=== PATIENT | male | born 1980 | race Caucasian/White ===

== ENCOUNTER → 2017-10-20 09:06 | Outpatient (CLI) | payer OTHER, SELFPAY ==
--- NOTE | 2017-10-20 09:14 | RAD_ITS ---
CLINICAL HISTORY: Male, 37 years old. Right shoulder pain. Limited range of motion. PROCEDURE: ARTHROGRAM - RIGHT SHOULDER CONSENT: The procedure as well as the benefits and possible complications including infection and bleeding were explained to the patient. Informed consent was obtained. FLUOROSCOPY TIME (if supplied): (0:48) minutes/seconds Injection Information: 10 cc of dilute Magnevist. Number of images obtained: 4 TECHNIQUE: (All elements of maximal sterile barrier technique followed, including US elements as applicable) The patient was in the supine position. The overlying skin was prepped and draped in the usual sterile fashion. Following local anesthetic application and under direct fluoroscopic guidance, a 22-gauge spinal needle was placed into the shoulder joint. 2 cc of Isovue-300 was injected for confirmation. Following this, 10 cc of dilute Magnevist was injected. The patient tolerated the procedure well. A CT scan will follow. RAD/Arthrogram Shoulder IMPRESSION: Successful right shoulder arthrogram with injection of 10 cc of dilute Magnevist. Electronically Signed: Primo Goff MD at 10:39 EDT Tel [phone], Service support ,
--- NOTE | 2017-10-20 09:15 | CT_ITS ---
STUDY: CT RIGHT SHOULDER REASON FOR EXAM: Male, 37 years old. Right shoulder pain. Decreased range of motion. RADIATION DOSAGE (If Supplied By Facility): CTDIvol = ( 41.06 ) mGy, DLP = ( 874.63 ) mGycm TECHNIQUE: The patient was scanned in a multi detector CT scanner. High resolution transaxial imaging was performed following intra-articular administration of dilute contrast material. Sagittal and coronal images were reconstructed. Individualized dose optimization techniques were used for this CT. COMPARISON: Comparison is made with prior arthrogram done earlier in the day. FINDINGS: Normal glenohumeral articulation. Normal glenoid rim, neck and visualized scapula. Normal humeral head, neck and tuberosities. Normal coracoid process. Normal visualized lateral clavicle. Normal acromioclavicular articulation. There is a Type II morphology (curved), with a neutral orientation. Normal visualized muscles and soft tissue structures. CT/Extremity Upper WITH Contrast IMPRESSION: Normal CT of the shoulder. Electronically Signed: Primo Goff MD at 10:56 EDT Tel [phone], Service support ,
== END ==
LOC: RAD 09:08
PROVIDERS: Visit Provider Specialist
DX: M25.511 Pain in right shoulder (principal)
CPT/HCPCS: 23350; 73040; 73201; A9577; Q9967

== ENCOUNTER 2017-12-01 14:18 | Inpatient (IN) | payer OTHER, SELFPAY ==
[2017-12-01] VITALS (7 sets, daily range): BP systolic 115–132; BP diastolic 63–77; PULSE 78–108; RESP 16–18; TEMP 36.9–37; O2SAT 96–99; BMI 34.2
[2017-12-01 15:03] LABS: Anion Gap 5 (5-15); BUN 14 mg/dL (7-18); BUN/Creat Ratio 12.4 RATIO (10-20); Chloride 109 mmol/L (98-107); Creatinine, Serum 1.13 mg/dL (0.70-1.30); EST Glomerular Filtration Rate 78 mL/min (>60); Est Glom Filt Rate - Afr Amer 94 mL/min (>60); Estimated Creatinine Clearance 98.24 ml/min; Glucose 106 mg/dL (74-106); Magnesium 2.3 mg/dL (1.6-2.6); Phosphorus 1.9 mg/dL (2.5-4.9); Potassium 2.8 mmol/L (3.5-5.1); Sodium Level 143 mmol/L (136-145)
--- NOTE | 2017-12-01 15:05 | PCM.HP.STD ---
Problem List (1) Generalized weakness Status: Acute History of Present Illness Date of Admission: 12/01/17 Chief Complaint: generalised weakness The patient is a 37 year old M with past medical history of hypokalemic periodic paralysis. He was admitted from [facility] on 12/01/2017 with complaint of generalized weakness of one days duration. Patient had right shoulder surgery 1 day ago at [facility] [place]. He was initially told that it was thought it might be a rotator cuff injury but during the surgery was found that it was due to arthritis and bone spurs. He subsequently was discharged the same day and he went home. In the early hours of this morning started feeling very weak. His symptoms resolved but recurred around 7 AM this morning. He went to [facility] where he was found to have potassium of 1.6. Potassium was replaced and a femoral line was put in and patient was transferred to [facility]. Patient complained of severe pain in the right shoulder from surgery and also pain at the site of the femoral line insertion. He denied any fever or chills, any cough or chest pain, any shortness of breath, any abdominal pain, any diarrhea vomiting but still complained of persistent weakness. Review of systems is otherwise negative. EKG done at [facility] showed no acute ST changes. He has been admitted to be managed hypokalemia. [] Past Medical History Allergies hydrocodone [From Vicodin] Allergy (Verified 10/20/17 07:03) Unknown Home Medications: Ambulatory Orders Medication Instructions Recorded Amiloride HCl 10 mg PO DAILY 12/01/17 Linaclotide [Linzess] 290 mcg PO DAILY 12/01/17 Methadone HCl [(None)] 30 mg PO BID 12/01/17 Oxycodone [Oxyir] 1 - 2 tab PO Q6H PRN 12/01/17 Sertraline HCl [Zoloft] 100 mg PO DAILY 12/01/17 Synthroid 25 mcg PO DAILY 12/01/17 Testosterone Cypionate 0.5 ml IM QWEEK 12/01/17 [Depo-Testosterone] Surgical History: - - right shoulder surgery (11/30/17) Psychiatric History: No pertinent psych hx Lives: With Family Smoking Status: Never smoker Alcohol: Occasional Drugs: None - *Family History Paternal History Items: Cancer, - - Multiple sclerosis Maternal History Items: No pertinent history Review of Systems Constitutional: Reports: Malaise, Weakness, Fatigue. Denies: Chills, Fever, Weight Change Eyes: Denies: Blurred vision, Double vision HEENT: Denies: Head Aches, Sinus Congestion, Sinus Drainage Cardiovascular: Denies: Chest Pain, Palpitations Respiratory: Denies: Cough, Shortness of breath at rest, Sputum production Gastrointestinal: Denies: Abdominal Pain, Nausea, Vomiting Genitourinary: Denies: Dysuria Musculoskeletal: Reports: Shoulder Pain - right shoulder pain Neurological: Denies: Numbness, Tingling, Focal weakness Psychiatric: Denies: Anxiety, Depression, Homicidal Ideations, Suicidal Ideations Hematologic/ Lymphatic: Denies: Easy Bruising, Easy Bleeding VTE Information - Inpt Only VTE Present on Admission: No VTE Pharm Prophylaxis ordered?: Yes Patient Problems: Active and Suspected Problems Generalized weakness (Acute) - Physical Exam General: Alert, Oriented x3, Cooperative, - - in moderate distress from pain HEENT: Atraumatic, PERRLA, EOMI, Normocephalic Oral: Dry Mucosa Neck: Supple, No JVD, Negative Carotid Bruits Lungs: Clear to auscultation, Normal air movement, No rhonchi, No wheeze, No rales Cardiovascular: Regular rate, Regular Rhythm, Normal S1, Normal S2, No murmurs Abdomen: Bowel Sounds Present, Soft, Non Tender, Non-Distended, No Hepato-splenomegaly Extremities: No clubbing, No cyanosis, No edema, Capillary Refill Less than 3 Seconds Skin: No rashes, No breakdown Musculoskeletal: - - right shoulder in a sling; Lymphatic: No Cervical, Supraclavicular, or Inguinal Adenopathy Neurological: Neuro grossly intact, - - power 4/5 in all extremities Psych/Mental Status: Normal Affect, Appropriate, Alert and oriented to time, place, person, mood and affect Vital Signs Temp Pulse Resp BP Pulse Ox 98.6 F 99 18 132/76 H 99 12/01/17 14:05 12/01/17 14:05 12/01/17 14:05 12/01/17 14:05 12/01/17 14:05 Oxygen Delivery Method Room Air Weight: 252 lb 1.6 oz Body Mass Index (BMI) 34.2 Laboratory Tests Past 24 Hrs 12/01/17 14:40 Sodium 143 Potassium 2.8 L Chloride 109 H Carbon Dioxide 29.0 Anion Gap 5 BUN 14 Creatinine 1.13 Estim Creat Clear Calc 98.24 Est GFR (MDRD) Af Amer 94 Est GFR (MDRD) Non-Af 78 BUN/Creatinine Ratio 12.4 Glucose 106 Calcium 8.0 L Phosphorus 1.9 L Magnesium 2.3 Assessment/Plan All Active Problems Generalized weakness (Acute) 37-year-old male presenting with a complaint of generalized weakness of one days duration. 1. Hypokalemia in a patient with known hypokalemic periodic paralysis Severe hypokalemia likely induced by stress of surgery as well. Potassium was 1.6 at [facility]. BMP ordered here potassium still pending. will give IV KCl 40meq via femoral line monitor BMP q4hrs until potassium is back to normal limits Mg was 1.9 2. Right shoulder arthritis s/p surgery today is POD 1. complains of severe pain will give IV toradol for pain on methadone for chronic back pain 3. IBS: on linaclotide DVT prophylaxis: lovenox Gi prophylaxis: PPI Code Status: Full code. Patient counseled about different types of CODE STATUS including DNR CC, full code and DNR CCA. Patient elects to be full code. Total [id number]-[id number] time 60 minutes. Code Visit Inpatient E&M: 72394 Init Hosp L3 Procedures: 65103 Advncd Care Plan 30 Min
--- NOTE | 2017-12-01 15:09 | HP.PCM_ITS ---
Problem List (1) Generalized weakness Status: Acute History of Present Illness Date of Admission: 12/01/17 Chief Complaint: generalised weakness The patient is a 37 year old M with past medical history of hypokalemic periodic paralysis. He was admitted from [facility] on 12/01/2017 with complaint of generalized weakness of one days duration. Patient had right shoulder surgery 1 day ago at [facility]. He was i nitially told that it was thought it might be a rotator cuff injury but during the surgery was found that it was due to arthritis and bone spurs. He subsequently was discharged the same day and he went home. In the early hours of this morning started feeling very weak. His symptoms resolved but recurred around 7 AM this morning. He went to [facility] where he was found to have potassium of 1.6. Potassium was replaced and a femoral line was put in and patient was transferred to [facility]. Patient complained of severe pain in the right shoulder from surgery and also pain at the site of the femoral line insertion. He denied any fever or chills, any cough or chest pain, any shortness of breath, any abdominal pain, any diarrhea vomiting but still complained of persistent weakness. Review of systems is otherwise negative. EKG done at [facility] showed no acute ST changes. He has been admitted to be managed hypokalemia. [] Past Medical History Allergies hydrocodone [From Vicodin] Allergy (Verified 10/20/17 07:03) Unknown Home Medications: Ambulatory Orders Medication Instructions Recorded Amiloride HCl 10 mg PO DAILY 12/01/17 Linaclotide [Linzess] 290 mcg PO DAILY 12/01/17 Methadone HCl [(None)] 30 mg PO BID 12/01/17 Oxycodone [Oxyir] 1 - 2 tab PO Q6H PRN 12/01/17 Sertraline HCl [Zoloft] 100 mg PO DAILY 12/01/17 Synthroid 25 mcg PO DAILY 12/01/17 Testosterone Cypionate 0.5 ml IM QWEEK 12/01/17 [Depo-Testosterone] Surgical History: - - right shoulder surgery (11/30/17) Psychiatric History: No pertinent psych hx Lives: With Family Smoking Status: Never smoker Alcohol: Occasional Drugs: None - *Family History Paternal History Items: Cancer, - - Multiple sclerosis Maternal History Items: No pertinent history Review of Systems Constitutional: Reports: Malaise, Weakness, Fatigue. Denies: Chills, Fever, Weight Change Eyes: Denies: Blurred vision, Double vision HEENT: Denies: Head Aches, Sinus Congestion, Sinus Drainage Cardiovascular: Denies: Chest Pain, Palpitations Respiratory: Denies: Cough, Shortness of breath at rest, Sputum production Gastrointestinal: Denies: Abdominal Pain, Nausea, Vomiting Genitourinary: Denies: Dysuria Musculoskeletal: Reports: Shoulder Pain - right shoulder pain Neurological: Denies: Numbness, Tingling, Focal weakness Psychiatric: Denies: Anxiety, Depression, Homicidal Ideations, Suicidal Ideations Hematologic/ Lymphatic: Denies: Easy Bruising, Easy Bleeding VTE Information - Inpt Only VTE Present on Admission: No VTE Pharm Prophylaxis ordered?: Yes Patient Problems: Active and Suspected Problems Generalized weakness (Acute) - Physical Exam General: Alert, Oriented x3, Cooperative, - - in moderate distress from pain HEENT: Atraumatic, PERRLA, EOMI, Normocephalic Oral: Dry Mucosa Neck: Supple, No JVD, Negative Carotid Bruits Lungs: Clear to auscultation, Normal air movement, No rhonchi, No wheeze, No rales Cardiovascular: Regular rate, Regular Rhythm, Normal S1, Normal S2, No murmurs Abdomen: Bowel Sounds Present, Soft, Non Tender, Non-Distended, No Hepato-splenomegaly Extremities: No clubbing, No cyanosis, No edema, Capillary Refill Less than 3 Seconds Skin: No rashes, No breakdown Musculoskeletal: - - right shoulder in a sling; Lymphatic: No Cervical, Supraclavicular, or Inguinal Adenopathy Neurological: Neuro grossly intact, - - power 4/5 in all extremities Psych/Mental Status: Normal Affect, Appropriate, Alert and oriented to time, place, person, mood and affect Vital Signs Temp Pulse Resp BP Pulse Ox 98.6 F 99 18 132/76 H 99 12/01/17 14:05 12/01/17 14:05 12/01/17 14:05 12/01/17 14:05 12/01/17 14:05 Oxygen Delivery Method Room Air Weight: 252 lb 1.6 oz Body Mass Index (BMI) 34.2 Laboratory Tests Past 24 Hrs 12/01/17 14:40 Sodium 143 Potassium 2.8 L Chloride 109 H Carbon Dioxide 29.0 Anion Gap 5 BUN 14 Creatinine 1.13 Estim Creat Clear Calc 98.24 Est GFR (MDRD) Af Amer 94 Est GFR (MDRD) Non-Af 78 BUN/Creatinine Ratio 12.4 Glucose 106 Calcium 8.0 L Phosphorus 1.9 L Magnesium 2.3 Assessment/Plan All Active Problems Generalized weakness (Acute) 37-year-old male presenting with a complaint of generalized weakness of one days duration. 1. Hypokalemia in a patient with known hypokalemic periodic paralysis * Severe hypokalemia likely induced by stress of surgery as well. * Potassium was 1.6 at [facility]. * BMP ordered here potassium still pending. * will give IV KCl 40meq via femoral line * monitor BMP q4hrs until potassium is back to normal limits * Mg was 1.9 * 2. Right shoulder arthritis s/p surgery * today is POD 1. complains of severe pain * will give IV toradol for pain * on methadone for chronic back pain * 3. IBS: on linaclotide DVT prophylaxis: lovenox Gi prophylaxis: PPI Code Status: Full code. * Patient counseled about different types of CODE STATUS including DNR CC, full code and DNR CCA. Patient elects to be full code. Total [id number] time 60 minutes. Code Visit Inpatient E&M: 72728 Init Hosp L3 Procedures: 72601 Advncd Care Plan 30 Min
[2017-12-01] MEDS: Ketorolac 30 MG/ML Syringe IV ×2 (15:33→21:08)
[2017-12-01] MEDS: Methadone 10 MG Tablet 30 MG PO (21:10)
[2017-12-01] MEDS: 0.9% NaCl Peripheral Flush Adult/Peds IV ×2 (21:15→21:17)
[2017-12-01 21:58] LABS: Anion Gap 1 (5-15); BUN 12 mg/dL (7-18); Calcium,Total 7.7 mg/dL (8.5-10.1); Chloride 110 mmol/L (98-107); Creatinine, Serum 1.09 mg/dL (0.70-1.30); EST Glomerular Filtration Rate 81 mL/min (>60); Est Glom Filt Rate - Afr Amer 98 mL/min (>60); Estimated Creatinine Clearance 101.85 ml/min; Glucose 102 mg/dL (74-106); Sodium Level 140 mmol/L (136-145)
[2017-12-02 01:56] LABS: Anion Gap 0 (5-15); BUN 12 mg/dL (7-18); BUN/Creat Ratio 11.2 RATIO (10-20); Calcium,Total 7.9 mg/dL (8.5-10.1); Chloride 108 mmol/L (98-107); Creatinine, Serum 1.07 mg/dL (0.70-1.30); EST Glomerular Filtration Rate 83 mL/min (>60); Est Glom Filt Rate - Afr Amer 100 mL/min (>60); Estimated Creatinine Clearance 103.75 ml/min; Glucose 113 mg/dL (74-106); Sodium Level 138 mmol/L (136-145)
[2017-12-02] MEDS: Sodium Polystyrene Sulfonate 15 GM/60 ML UDC PO (02:49)
[2017-12-02 03:00] VITALS: PULSE 79
[2017-12-02 05:15] VITALS: BP 113/68; PULSE 76; RESP 14; TEMP 36.4; O2SAT 93
[2017-12-02] MEDS: Levothyroxine 25 MCG TABLET PO (05:31)
[2017-12-02] MEDS: Ketorolac 30 MG/ML Syringe IV ×2 (05:31→11:58)
[2017-12-02] MEDS: 0.9% NaCl Peripheral Flush Adult/Peds IV ×2 (05:44→11:58)
[2017-12-02 06:24] LABS: Absolute Lymphocyte Count 2.41 X10^3/ul (0.83-4.51); Absolute Neutrophil Count 5.8 X10^3/uL (2.0-7.7); Basophil# 0.02 X10^3/uL; Basophil% 0.2 % (0-1); Eosinophil# 0.17 X10^3/uL; Eosinophils% 1.8 % (0-5); Hematocrit 43.8 % (40-54); Lymphocyte # 2.41 X10^3/ul (4.0); Lymphocyte % 25.2 % (19-41); Mean Corp Hgb Conc 34.2 g/gl (32-36); Mean Corpuscular Hgb 31.2 pg (27.0-32.0); Mean Corpuscular Volume 91.1 fL (80-94); Mean Platelet Vol. 8.4 fl (6.2-12.0); Monocyte% 11.5 % (0-10); Neutrophil # 5.84 X10^3/uL (2.7-7.7); Neutrophil % 61.1 % (47-70); Platelet Count 210 K/mm3 (150-450); RBC Distribution Width CV 13.7 % (11.6-14.6); Red Blood Count 4.81 M/mm3 (4.6-6.2); White Blood Count 9.6 K/mm3 (4.4-11.0)
[2017-12-02 06:26] LABS: POSITIVE COUNT NO; POSITIVE DIFFERENTIAL NO; POSITIVE MORPHOLOGY NO
[2017-12-02 06:36] LABS: Anion Gap 5 (5-15); BUN 12 mg/dL (7-18); BUN/Creat Ratio 11.5 RATIO (10-20); Calcium,Total 8.1 mg/dL (8.5-10.1); Chloride 107 mmol/L (98-107); Creatinine, Serum 1.04 mg/dL (0.70-1.30); EST Glomerular Filtration Rate 85 mL/min (>60); Est Glom Filt Rate - Afr Amer 103 mL/min (>60); Estimated Creatinine Clearance 106.74 ml/min; Glucose 101 mg/dL (74-106); Potassium 5.4 mmol/L (3.5-5.1); Sodium Level 141 mmol/L (136-145)
[2017-12-02 07:24] VITALS: PULSE 83
[2017-12-02 09:42] VITALS: BP 134/75; PULSE 86; RESP 17; TEMP 36.6; O2SAT 95
[2017-12-02] MEDS: Sertraline 100 MG Tablet PO (09:51)
[2017-12-02] MEDS: Methadone 10 MG Tablet 30 MG PO (09:51)
[2017-12-02] MEDS: LINACLOTIDE 145 MCG CAPSULE 290 MCG PO (09:52)
[2017-12-02] MEDS: Na Biphos/Potassium Phosphate PACKET 1 PACKET PO (09:53)
[2017-12-02] MEDS: Enoxaparin 40 MG/0.4 ML Syringe SC (09:55)
--- NOTE | 2017-12-02 10:17 | CASEMGMT ---
LEOPOLDO NAGEL Assessment: Face to Face with patient for initial transition planning/care coordination assessment. LEOPOLDO NAGEL introduced self and role at [facility], pt voices understanding and consents to assessment at this time. Pt sitting up in bed in no distress at this time. Pt is A/Ox4 at this time and answers all questions appropriately at this time. Pt's is at bedside during assessment. Care providers, pharmacy, and demographics verified/updated at this time. PCP: Ana Patterson Specialists: TOMMY Miles at [facility]; thiago Rubalcava; dimitri Lutz at [facility] Preferred Pharmacy: [facility] Insurance: [employer] Prescription Benefit: [employer] Living Will/HPOA: Pt states does not currently have LW/HPOA and declines info at this time. Pt aware that SW can complete if interested and that he can notify RN if he is interested. LNOK: Ana Bravo, Living Arrangements: Pt lives with family in home and states no concerns at home at this time. Transportation: Pt drives self and states no transportation concerns at this time. DME/HHC: Pt states no current DME and no need for any at this time. Pt states no hx of HHC or SNF. 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 Pt states does not smoke and seldom drinks ETOH. Pt states no concerns with going home at time of discharge. Pt voices no further concerns/needs at this time. Plan: [place] LEOPOLDO NAGEL
[2017-12-02] MEDS: AMILORIDE HCL 5 MG TABLET 10 MG PO (11:01)
[2017-12-02 11:53] VITALS: PULSE 102
--- NOTE | 2017-12-02 13:58 | DCINST_ITS ---
- Discharge Diagnoses Current Active Problems: Current Active and Chronic Problems Generalized weakness (Acute) You will use the following diet at home:: Regular Your food should be the consistency of: Regular Your liquids should be the consistency of: Regular/Thin Discharge Activity: No Restrictions Call your doctor if you observe: Numbness or Tingling, Shortness of breath, Chest pain, Increased palpitations (irregular heartbeat), - - weakness Allergies/Adverse Reactions: Allergies hydrocodone [From Vicodin] Allergy (Verified 10/20/17 07:03) Unknown Medications to take at Discharge Amiloride HCl 10 mg PO DAILY 12/01/17 Linaclotide [Linzess] 290 mcg PO DAILY 12/01/17 Methadone HCl 30 mg PO BID 12/01/17 Oxycodone [Oxyir] 1 - 2 tab PO Q6H PRN 12/01/17 Sertraline HCl [Zoloft] 100 mg PO DAILY 12/01/17 Synthroid 25 mcg PO DAILY 12/01/17 Testosterone Cypionate [Depo-Testosterone] 0.5 ml IM QWEEK 12/01/17 Potassium Chloride [K-Dur] 20 meq PO DAILY #30 tablet 12/02/17 The following prescriptions were given: Potassium Chloride [K-Dur] 20 meq PO DAILY #30 tablet Orders to be completed after discharge: Basic Metabolic Profile (BMP) Time Frame: 3 Days, Location: Laboratory Primary Care Physician: Ana Patterson DO [Primary Care Provider] - Please follow up with your Primary Care Physician in: in 3-5 days Test Results: Test results from this visit will be discussed in further detail at your follow- up appointment, if applicable.
--- NOTE | 2017-12-02 13:59 | PCM.DC.SUM ---
Discharge Date and Diagnosis - Problem List Patient Problems: Active and Suspected Problems Generalized weakness (Acute) Date of Admission: 12/01/17 Date of Discharge: 12/02/17 - Primary Discharge Diagnosis Active and Suspected Problems Generalized weakness (Acute) Hospital Course and Treatment Imaging Results: None Consults: None Operations: None Procedures: None Summary of Care Provided: Per HPI: The patient is a 37 year old M with past medical history of hypokalemic periodic paralysis. He was admitted from [facility] on 12/01/2017 with complaint of generalized weakness of one days duration. Patient had right shoulder surgery 1 day ago at [facility] [place]. He was initially told that it was thought it might be a rotator cuff injury but during the surgery was found that it was due to arthritis and bone spurs. He subsequently was discharged the same day and he went home. In the early hours of this morning started feeling very weak. His symptoms resolved but recurred around 7 AM this morning. He went to [facility] where he was found to have potassium of 1.6. Potassium was replaced and a femoral line was put in and patient was transferred to [facility]. Patient complained of severe pain in the right shoulder from surgery and also pain at the site of the femoral line insertion. He denied any fever or chills, any cough or chest pain, any shortness of breath, any abdominal pain, any diarrhea vomiting but still complained of persistent weakness. Review of systems is otherwise negative. EKG done at [facility] showed no acute ST changes. He has been admitted to be managed hypokalemia. Vital Signs - 24 hr Temp Pulse Resp BP Pulse Ox 12/02/17 09:42 97.8 F 86 17 134/75 H 95 12/02/17 07:24 83 12/02/17 05:15 97.5 F L 76 14 113/68 93 12/02/17 03:00 79 12/01/17 23:15 98.4 F 86 16 115/77 96 12/01/17 23:00 78 12/01/17 19:00 95 12/01/17 17:55 98.4 F 94 16 123/63 H 96 12/01/17 15:02 108 H 12/01/17 14:30 99 12/01/17 14:05 98.6 F 99 18 132/76 H 99 General: Alert, Oriented x3, Cooperative, No apparent distress HEENT: Atraumatic, PERRLA, EOMI, Normocephalic Oral: Moist Mucosa Neck: Supple, No JVD Lungs: Clear to auscultation, Normal air movement, No rhonchi, No wheeze, No rales Cardiovascular: Regular rate, Regular Rhythm, Normal S1, Normal S2, No murmurs Abdomen: Soft, Non Tender, Non-Distended, No Hepato-splenomegaly Extremities: No edema, Capillary Refill Less than 3 Seconds Skin: No rashes, No breakdown Musculoskeletal: No Tenderness to Palpation of Joints or Extremities Neurological: Motor Exam 5/5 strength throughout, Sensory exam intact to light touch and pain Psych/Mental Status: Normal Affect, Appropriate Hospital Course: 1. 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 He had not had a problem since. Then 3 days ago he had surgery and presented to [facility] with sudden onset paralysis. His potassium 1.6 and aggressively replaced. Today his potassium is 5.4 and he is back to baseline. I discussed with him that he will likely need to remain on potassium and he should probably take enough to be in the high range of normal. If he would like to know exactly what the cause then he will need an outpatient neurology/genetic work-up. 2. his other diagnoses were evaluated and his home medications were continued where appropriate Patient Problems: Active and Suspected Problems Generalized weakness (Acute) - Physical Exam Vital Signs Temp Pulse Resp BP Pulse Ox 97.8 F 86 17 134/75 H 95 12/02/17 09:42 12/02/17 09:42 12/02/17 09:42 12/02/17 09:42 12/02/17 09:42 Oxygen Delivery Method Room Air Weight: 252 lb 1.6 oz Body Mass Index (BMI) 34.2 Intake and Output for Last 24 Hours 11/30/17 12/01/17 12/02/17 23:59 23:59 23:59 Intake Total 1194 / 1194 825 / 825 Output Total 2800 / 2800 500 / 500 Balance -1606 / -1606 325 / 325 Laboratory Tests Past 24 Hrs 12/01/17 12/01/17 12/02/17 14:40 21:15 01:15 WBC RBC Hgb Hct MCV MCH MCHC RDW RDW Differential Plt Count MPV Immature Gran % (Auto) Neut % (Auto) Lymph % (Auto) [place] % (Auto) Eos % (Auto) Baso % (Auto) Absolute Neuts (auto) Absolute Lymphs (auto) Total Counted Sodium 143 140 138 Potassium 2.8 L 6.0 H* 6.0 H* Chloride 109 H 110 H 108 H Carbon Dioxide 29.0 29.0 30.0 Anion Gap 5 1 L 0 L BUN 14 12 12 Creatinine 1.13 1.09 1.07 Estim Creat Clear Calc 98.24 101.85 103.75 Est GFR (MDRD) Af Amer 94 98 100 Est GFR (MDRD) Non-Af 78 81 83 BUN/Creatinine Ratio 12.4 11.0 11.2 Glucose 106 102 113 H Calcium 8.0 L 7.7 L 7.9 L Phosphorus 1.9 L Magnesium 2.3 12/02/17 12/02/17 05:45 05:45 WBC 9.6 RBC 4.81 Hgb 15.0 Hct 43.8 MCV 91.1 MCH 31.2 MCHC 34.2 RDW 13.7 RDW Differential 45.0 H Plt Count 210 MPV 8.4 Immature Gran % (Auto) 0.200 Neut % (Auto) 61.1 Lymph % (Auto) 25.2 [place] % (Auto) 11.5 H Eos % (Auto) 1.8 Baso % (Auto) 0.2 Absolute Neuts (auto) 5.8 Absolute Lymphs (auto) 2.41 Total Counted Not Reportable Sodium 141 Potassium 5.4 H Chloride 107 Carbon Dioxide 29.0 Anion Gap 5 BUN 12 Creatinine 1.04 Estim Creat Clear Calc 106.74 Est GFR (MDRD) Af Amer 103 Est GFR (MDRD) Non-Af 85 BUN/Creatinine Ratio 11.5 Glucose 101 Calcium 8.1 L Phosphorus Magnesium Discharge Activity: No Restrictions Call your doctor if you observe: Numbness or Tingling, Shortness of breath, Chest pain, Increased palpitations (irregular heartbeat), - - weakness Home Medications: Medications to take at Discharge Amiloride HCl 10 mg PO DAILY 12/01/17 Linaclotide [Linzess] 290 mcg PO DAILY 12/01/17 Methadone HCl 30 mg PO BID 12/01/17 Oxycodone [Oxyir] 1 - 2 tab PO Q6H PRN 12/01/17 Sertraline HCl [Zoloft] 100 mg PO DAILY 12/01/17 Synthroid 25 mcg PO DAILY 12/01/17 Testosterone Cypionate [Depo-Testosterone] 0.5 ml IM QWEEK 12/01/17 Potassium Chloride [K-Dur] 20 meq PO DAILY #30 tablet 12/02/17 Following Prescrptions Were Given to Patient: Potassium Chloride [K-Dur] 20 meq PO DAILY #30 tablet Other Amb Orders: Basic Metabolic Profile (BMP) Time Frame: 3 Days, Location: Laboratory Primary Care Physician: Ana Patterson DO [Primary Care Provider] - Please follow up with your Primary Care Physician in: in 3-5 days Disposition: Home Minutes spent on discharge:: 35 Patient Condition:: Good Medical Necessity - Tobacco Use Smoking Status: Never smoker Meaningful Use Info Meaningful Use Diagnoses (Choose all that apply): None applicable Code Visit Inpatient E&M: 78568 Disch Hosp
--- NOTE | 2017-12-02 14:26 | NURSING ---
Central line removed, sutures x2 removed, pressure applied for 10 minutes. Vaseline guaze, 2x2 and secured with tegaderm. No S&S of bleeding noted.
[2017-12-02 15:10] VITALS: BP 116/54; PULSE 78; RESP 18; TEMP 36.7; O2SAT 96
== END 2017-12-02 17:39 | disposition home or self-care (01) | DRG 641 ==
PROVIDERS: Family Medicine; Admitting Provider Student in an Organized Health Care Education/Training Program; Referring Provider Family Medicine; Visit Provider Family Medicine
DX: E87.6 Hypokalemia (principal); G89.29 Other chronic pain; M54.9 Dorsalgia, unspecified; K58.9 Irritable bowel syndrome, unspecified; Z98.890 Other specified postprocedural states
CPT/HCPCS: 80048; 83735; 84100; 85025; 99406; A4216

== ENCOUNTER → 2018-01-19 08:39 | Outpatient (CLI) | payer OTHER, SELFPAY ==
--- NOTE | 2018-01-19 08:48 | CT_ITS ---
STUDY: CT RIGHT SHOULDER REASON FOR EXAM: Male, 37 years old. Impingement syndrome. Right shoulder pain. RADIATION DOSAGE (If Supplied By Facility): CTDIvol = ( 39.63 ) mGy, DLP = ( 646.10 ) mGycm TECHNIQUE: The patient was scanned in a multi detector CT scanner. High resolution transaxial imaging was performed following intra-articular administration of 10 cc of dilute Magnevist contrast material. Sagittal and coronal images were reconstructed. Individualized dose optimization techniques were used for this CT. COMPARISON: Comparison is made with prior study dated October 20, 2017. FINDINGS: There is evidence of a partial tear of the rotator cuff. Normal glenohumeral articulation. Normal glenoid rim, neck and visualized scapula. Normal humeral head, neck and tuberosities. Normal coracoid process. Normal visualized lateral clavicle. There is mild osteoarthritis with articular joint space narrowing. No evidence of impingement. There is a Type II morphology (curved), with a neutral orientation. Normal visualized muscles and soft tissue structures. CT/Extremity Upper without Contra IMPRESSION: Partial tear of the rotator cuff. Electronically Signed: Primo Goff MD at 10:28 EST Tel [phone], Service support ,
--- NOTE | 2018-01-19 09:00 | RAD_ITS ---
CLINICAL HISTORY: Male, 37 years old. Chronic shoulder pain. History of shoulder impingement and possible rotator cuff tear. PROCEDURE: ARTHROGRAM - RIGHT SHOULDER CONSENT: The procedure as well as benefits and possible complications of the procedure were explained to the patient. Informed consent was obtained. FLUOROSCOPY TIME (if supplied): (0:30) minutes/seconds Injection Information: 10 cc of dilute Magnevist. Number of images obtained: 4 TECHNIQUE: (All elements of maximal sterile barrier technique followed, including US elements as applicable) The patient was in the supine position. The overlying skin was prepped and draped in usual sterile fashion. Following local anesthetic application and under direct fluoroscopic guidance, a 22-gauge spinal needle was placed into the shoulder joint. 2 cc of the Isovue 300 was injected for confirmation. Following this, 10 cc of dilute Magnevist was injected. The patient tolerated procedure well. A CT scan of the shoulder will follow. RAD/Arthrogram Shoulder IMPRESSION: Successful right shoulder arthrogram for CT exam patient. Electronically Signed: Primo Goff MD at 10:02 EST Tel [phone], Service support ,
--- OUTSIDE RECORDS SUMMARY | 2018-03-07 01:59 | XMS RPT_ITS ---
:1980 Author Organization OHIP Support Name Relationship Address Phone AMAURY PACE Unavailable [address] + [place] [address] CEMEX Unavailable [id number] + [place] [address] SHERRI BRAVO Unavailable [address] + [place] [address] SHERRI BRAOV Unavailable [address] + [place] [address] SHERRI BRAVO Unavailable [address] + [place] [address] SHERRI BRAVO Unavailable [address] + [place] [address] SHERRI BRAVO Unavailable [address] + [place] [address] AMAURY PACE Unavailable [address] + [place] [address] [employer]EM[facility] Unavailable . +. [place] . SHERRI BRAVO Unavailable [address] + [place] [address] AMAURY PACE Unavailable [address] + [place] [address] [employer] Unavailable . +. [place] . SHERRI BRAVO Unavailable [address] + [place] [address] AMAURY PACE Unavailable [address] + [place] [address] [employer] Unavailable . +. [place] . SHERRI BRAVO Unavailable [address] + [place] [address] SHERRI BRAVO Unavailable [address] + [place] [address] SHERRI BRAVO Unavailable [address] + [place] [address] AMAURY PACE Unavailable [address] + [place] [address] [employer] Unavailable . +. [place] . SHERRI BRAVO Unavailable [address] + [place] [address] Care Team Providers Name Role Phone SAULO NÚÑEZ Attending Unavailable KAMI, ILAN Referring Unavailable SAULO NÚÑEZ Attending Unavailable KAMI, ONÉUO Referring Unavailable SAULO NÚÑEZ Attending Unavailable KAMI, NOÉUO Referring Unavailable KAMI, NOÉUO Referring Unavailable KAMI, NOÉUO Attending Unavailable KAMI, NOÉUO Referring Unavailable SOLIS MIRANDA) Attending Unavailable TITO LUTZ Referring Unavailable TITO LUTZ Referring Unavailable TITO LUTZ Attending Unavailable YOAN KHALIL Referring Unavailable PANKAJ CORONA (PA-C) Attending Unavailable KAMI, ILAN Referring Unavailable PANKAJ CORONA (KENNY) Attending Unavailable KAMI, NOÉUO Referring Unavailable REFUGIO WANG, DR. POLANCO Primary Care Unavailable LISSETH BYRD Attending Unavailable REFERRING REFERRING, RAMYA BUI WO ID~[id number] Attending Unavailable REFUGIO WANG, DR. POLANCO Primary Care Unavailable REFUGIO WANG, DR. POLANCO Attending Unavailable REFUGIO WANG, DR. POLANCO Primary Care Unavailable Byron Sanchez Attending Unavailable Byron Sanchez Referring Unavailable Sherri Patterson Primary Care Unavailable Tea Felixs F Admitting Unavailable Nito Felixolas F Attending Unavailable Nito Felixolas F Referring Unavailable Sherri Patterson Primary Care Unavailable Isidro, Onesimo F Admitting Unavailable Odilia Shepard Attending Unavailable Isidro Onesimo F Referring Unavailable Sherri Patterson Primary Care Unavailable Nito Felixolas F Consulting Unavailable Navitsonis, Onesimo F Admitting Unavailable Kotsonis, Onesimo F Attending Unavailable Isidro, Onesimo F Referring Unavailable Sherri Patterson Primary Care Unavailable Isidro Onesimo F Consulting Unavailable iMchael Rubalcava Attending Unavailable Michael Rubalcava Referring Unavailable Sherri Patterson Primary Care Unavailable PROBLEMS PROBLEMS DATE TYPE CONDITION / CODE ATTENDING STATUS SOURCE 12/06/2017 Admitting Other disorders of REFUGIO WANG DR. 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 / [facility] E29.1(ICD-10) [facility] Repository 06/23/2017 Active Other specified NA Active [facility] abnormal findings [facility] of blood chemistry [facility] / R79.89(ICD-10) Repository 06/20/2017 Active Hypothyroidism, NA Active [facility] unspecified / [facility] E03.9(ICD-10) [facility] Repository 06/20/2017 Active Other fatigue / NA Active [facility] R53.83(ICD-10) [facility] Repository 06/20/2017 Active Endocrine disorder, NA Active [facility] unspecified / [facility] E34.9(ICD-10) [facility] Repository 06/20/2017 Active Flushing / NA Active [facility] R23.2(ICD-10) [facility] Repository 06/20/2017 Active Other obesity / NA Active [facility] E66.8(ICD-10) [facility] Repository 06/20/2017 Active Vitamin D NA Active [facility] deficiency, [facility] unspecified / [facility] E55.9(ICD-10) Repository PROCEDURES PROCEDURES No Procedure Records FoundRESULTS RESULTS PROGRESS Observed: 01/20/2018 Status: COMPLETED Source: [place] 11:40 AM [facility] RE[facility] HNO ID: [id number] Author: MAVIS Cesar Service: (none) Author Type: Physician Esthetics Instructor Type: Progress Notes Filed: 01/21/2018 6:05 PM Note Text: Chronic Pain Management Follow-Up Evaluation Date: January 20, 2018 Chief Complaint: Low back pain SUBJECTIVE: Man Bravo presents to [facility] Department for a followup appointment for medication refills for low back pain as an established patient of Dr. Aceves. He was injured in 2006 when he fell off of a ladder at work onto a stack of barn beans. He suffered a herniated disc. This was followed by a microdiscectomy which did no alleviate the pain. Patient has hypokalemic periodic paralysis. 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 Plan at last visit 11/21/2017: 1) Continue current medication regimen as established by Dr. Aceves 2) Refilled Methadone 30mg BID for 2 months 3) Refilled Linzess for 2 months 4) Follow up with Dr. Espinoza/Dr. Miranda for SCS revision/ possible trial 5) Patient will have Right rotator cuff revision on 11/30/2017. His post op pain will be managed by the surgeon. 6) Counseled patient regarding the importance of activity modification, exercise and consistent sleep habits 7) RTC for medication refills in two months. Since the last visit, Man Caceres Shelly states the pain has continued to be increased. Current pain intensity is 7 on a scale of 0-10. Pain Location: lower back that mainly radiates to the left leg. The low back pain is the greatest pain. The SCS mainly controls the leg pain. Duration: Since 2006. Pain character: pressure, aching, sharp Exacerbating factors: Activity Alleviating factors: medications, SCS Pain Medications: - Opioids: Methadone 30 mg BID, Percocet in the past. - NSAIDs: Celebrex 200 mg BID - Anti-Depressants: Zoloft 100 mg - Anti-Convulsants: None - Others: Linzess Adverse Effects to Medications: none Pain Procedures: - Medtronic paddle lead SCS system in place, implanted by Dr. Espinoza in 2008. Had three years of good pain relief. Revision done on 04/04/12. Opioid Agreement: Signed on . Last Pain Panel/Urine Tox and Assessment: Pain Panel last done on 05/23/2017 and found to be appropriate medications. OARRS report: Reviewed, January 20, 2018 and appropriate for reported medication use. Physical Therapy/Home Exercise: HEP Cardiac: EGG complete W Interpretation. - 08/30/2017: QTC Calculation: 416 ms - 03/03/2016: QTC Calculation: 413 ms - 12/23/2014: QTC Calculation: 424 ms - 02/22/2013: QTC Calculation: 414 ms - 03/23/2012: QTC Calculated: 434 ms Imaging: - XR of the lumbar spine done on 05/05/2015 IMPRESSION: Negative - XR of the Thoracic spine done on 04/04/2012 IMPRESSION: Stimulator device as described. - IR Myelo Thoracic 03/24/2012 IMPRESSION: TECHNICALLY SUCCESSFUL INTRATHECAL ADMINISTRATION OF CONTRAST FOR THORACIC CT MYELOGRAM. PAST MEDICAL HISTORY Diagnosis Date - Back pain - PMH - PAST MEDICAL HISTORY OF hypokalemic periodic pyralysis PAST SURGICAL HISTORY Procedure Laterality Date - PAST SURGICAL HISTORY OF 11/13 lumbar surgery - PAST SURGICAL HISTORY OF 2008 Spinal cord stimulator Medtronic - [place] ANESTH,DX ARTHROSCOPIC PROC KNEE JOINT 2000, 2001 right torn meniscus x 2 - THUMB 2002 gamekeeper's thumb surg FAMILY HISTORY Problem Relation Age of Onset - Hypertension Father - Cancer Father basal cell - other (multiple sclerosis) Father also father's sister - Diabetes Maternal Grandfather - Heart Maternal Grandfather - Diabetes Paternal Grandfather - Heart Paternal Grandfather Social History Marital status: Spouse name: Years of education: 12 Number of children: 2 Occupational History Occupation Employer Comment employed Social History Main Topics Smoking status: Never Smoker Smokeless tobacco: Current User Types: Chew Alcohol use: No Drug use: No Sexual activity: Yes Partners with: Female 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 REVIEW OF SYSTEMS: GENERAL: No weight loss, malaise or fevers. HEENT: Negative for frequent or significant headaches NECK: Negative for lumps, goiter, and significant neck swelling RESPIRATORY: Negative for cough, wheezing or shortness of breath. CARDIOVASCULAR: Negative for chest pain or palpitations. GI: Negative for blood in stools or black stools or change in bowel habits, nausea, vomiting, diarrhea, constipation MUSCULOSKELETAL: see HPI SKIN: Negative for lesions, rash, and itching. PSYCH: Negative for sleep disturbance, mood disorder and recent psychosocial stressors. HEMATOLOGY/LYMPHOLOGY: Clotting disorder? NEURO: No history of syncope, paralysis, seizures or tremors OBJECTIVE: GENERAL: Well appearing, in no acute distress HEENT: Normocephalic, atraumatic. RESPIRATORY: Respirations are unlabored GI: Abdomen soft and non-tender. MUSCULOSKELETAL: No atrophy or tone abnormalities are noted. Decreased ROM noted in the right shoulder due to rotator cuff injury suffered at a fairly recent recreational event. NECK: No pain with neck flexion, extension, or lateral flexion. No obvious deformity or signs of trauma. BACK: Pain to palpation over the lumbar spine and paraspinous muscles Centered at the midline well healed surgical scar. Normal range of motion without pain reproduction. Negative bilateral straight leg raise. EXTREMITIES: Peripheral joint ROM is full and pain free without obvious instability or laxity in all four extremities. No deformities, edema, or skin discoloration. SKIN: Skin color, texture, turgor normal, no rashes or lesions PSYCH: Mood and affect is appropriate. Awake, alert, and oriented x 3 NEURO: Grossly intact GAIT: Steady without assist devices ASSESSMENT: Man Bravo is a 37 year old male with low back and bilateral leg pain who presents for medication refills as an established patient of Dr. Aceves. He was injured in 2006 when he fell off of a ladder at work onto a stack of barn beans. He suffered a herniated disc. This was followed by a microdiscectomy which did no alleviate the pain. Patient has hypokalemic periodic paralysis and is considering seeing a specialist. 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 He has a Medtronic paddle lead SCS system in place that was implanted by Dr. Espinoza in 2008. Patient had three years of good pain relief followed be a revision done on 04/04/12. HX RECALL: Patient's lower extremity pain is well controlled at this time. The low back pain is his most pressing concern. He has followed up with Dr. Miranda about doing a revision of the SCS. He is still awaiting a decision on moving forward with an an SCS trial at this time. He has several options at this time. One involves trialing a Nevros SCS system. Patient will have right rotator cuff repair on 11/30/2017 in [place], [place]. His post op pain will be managed by the surgeon. He had his right shoulder cleaned up a bit on 11/30/2017. He does have a rotator cuff tear with fraying. He will have a CT arthrogram of the right shoulder tomorrow. This is being done to check for worsened tearing and fraying since the procedure. He feel that he has become somewhat tolerant to his current does of Methadone. He was started on Celebrex 200 mg BID recently. This was started by his Ortho surgeon at [facility] but it has not been helpful as of yet. Patient is waiting for the requested Thoracic myelogram. He will follow up with Dr. Miranda afterwards. M96.1 Postlaminectomy syndrome, lumbar region M47.816 Lumbar spondylosis PLAN: 1) Continue current medication regimen as established by Dr. Aceves 2) Refilled Methadone 30mg BID for 2 months 3) Refilled Linzess for 2 months 4) Follow up with Dr. Espinoza/Dr. Miranda for SCS revision/ possible trial 5) Continue follow up with Ortho Surg 6) Counseled patient regarding the importance of activity modification, exercise and consistent sleep habits 7) RTC for medication refills in two months. The above plan and management options were discussed at length with patient. Patient is in agreement with the above and verbalized understanding. Saulo Núñez PA-C January 20, 2018 CNOV Observed: 01/20/2018 Status: COMPLETED Source: [place] 11:00 AM [facility] REPOSITORY Office Visit (PAINMN) MAN BRAVO ([id number]) 1980 M Date Time Provider Department 01/20/18 11:00 AM SAULO NÚÑEZ PAINMN During your visit today, we recorded the following information about you: Saulo Núñez PA-C, MAVIS 01/21/2018 6:05 PM Signed Chronic Pain Management Follow-Up Evaluation Date: January 20, 2018 Chief Complaint: Low back pain SUBJECTIVE: Man Bravo presents to [facility] Department for a followup appointment for medication refills for low back pain as an established patient of Dr. Aceves. He was injured in 2006 when he fell off of a ladder at work onto a stack of [employer]. He suffered a herniated disc. This was followed by a microdiscectomy which did no alleviate the pain. Patient has hypokalemic periodic paralysis. 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 Plan at last visit 11/21/2017: 1) Continue current medication regimen as established by Dr. Aceves 2) Refilled Methadone 30mg BID for 2 months 3) Refilled Linzess for 2 months 4) Follow up with Dr. Espinoza/Dr. Miranda for SCS revision/ possible trial 5) Patient will have Right rotator cuff revision on 11/30/2017. His post op pain will be managed by the surgeon. 6) Counseled patient regarding the importance of activity modification, exercise and consistent sleep habits 7) RTC for medication refills in two months. Since the last visit, Man Bravo states the pain has continued to be increased. Current pain intensity is 7 on a scale of 0-10. Pain Location: lower back that mainly radiates to the left leg. The low back pain is the greatest pain. The SCS mainly controls the leg pain. Duration: Since 2006. Pain character: pressure, aching, sharp Exacerbating factors: Activity Alleviating factors: medications, SCS Pain Medications: - Opioids: Methadone 30 mg BID, Percocet in the past. - NSAIDs: Celebrex 200 mg BID - Anti-Depressants: Zoloft 100 mg - Anti-Convulsants: None - Others: Linzess Adverse Effects to Medications: none Pain Procedures: - Medtronic paddle lead SCS system in place, implanted by Dr. Espinoza in 2008. Had three years of good pain relief. Revision done on 04/04/12. Opioid Agreement: Signed on 08/03/20186. Last Pain Panel/Urine Tox and Assessment: Pain Panel last done on 05/23/2017 and found to be appropriate medications. OARRS report: Reviewed, January 20, 2018 and appropriate for reported medication use. Physical Therapy/Home Exercise: HEP Cardiac: EGG complete W Interpretation. - 08/30/2017: QTC Calculation: 416 ms - 03/03/2016: QTC Calculation: 413 ms - 12/23/2014: QTC Calculation: 424 ms - 02/22/2013: QTC Calculation: 414 ms - 03/23/2012: QTC Calculated: 434 ms Imaging: - XR of the lumbar spine done on 05/05/2015 IMPRESSION: Negative - XR of the Thoracic spine done on 04/04/2012 IMPRESSION: Stimulator device as described. - IR Myelo Thoracic 03/24/2012 IMPRESSION: TECHNICALLY SUCCESSFUL INTRATHECAL ADMINISTRATION OF CONTRAST FOR THORACIC CT MYELOGRAM. PAST MEDICAL HISTORY Diagnosis Date - Back pain - PMH - PAST MEDICAL HISTORY OF hypokalemic periodic pyralysis PAST SURGICAL HISTORY Procedure Laterality Date - PAST SURGICAL HISTORY OF 11/13 lumbar surgery - PAST SURGICAL HISTORY OF 2008 Spinal cord stimulator Medtronic - [place] ANESTH,DX ARTHROSCOPIC PROC KNEE JOINT 2000, 2001 right torn meniscus x 2 - THUMB 2003 gamekeeper's thumb surg FAMILY HISTORY Problem Relation Age of Onset - Hypertension Father - Cancer Father basal cell - other (multiple sclerosis) Father also father's sister - Diabetes Maternal Grandfather - Heart Maternal Grandfather - Diabetes Paternal Grandfather - Heart Paternal Grandfather Social History Marital status: Spouse name: Years of education: 12 Number of children: 2 Occupational History Occupation Employer Comment employed Social History Main Topics Smoking status: Never Smoker Smokeless tobacco: Current User Types: Chew Alcohol use: No Drug use: No Sexual activity: Yes Partners with: Female 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 REVIEW OF SYSTEMS: GENERAL: No weight loss, malaise or fevers. HEENT: Negative for frequent or significant headaches NECK: Negative for lumps, goiter, and significant neck swelling RESPIRATORY: Negative for cough, wheezing or shortness of breath. CARDIOVASCULAR: Negative for chest pain or palpitations. GI: Negative for blood in stools or black stools or change in bowel habits, nausea, vomiting, diarrhea, constipation MUSCULOSKELETAL: see HPI SKIN: Negative for lesions, rash, and itching. PSYCH: Negative for sleep disturbance, mood disorder and recent psychosocial stressors. HEMATOLOGY/LYMPHOLOGY: Clotting disorder? NEURO: No history of syncope, paralysis, seizures or tremors OBJECTIVE: GENERAL: Well appearing, in no acute distress HEENT: Normocephalic, atraumatic. RESPIRATORY: Respirations are unlabored GI: Abdomen soft and non-tender. MUSCULOSKELETAL: No atrophy or tone abnormalities are noted. Decreased ROM noted in the right shoulder due to rotator cuff injury suffered at a fairly recent recreational event. NECK: No pain with neck flexion, extension, or lateral flexion. No obvious deformity or signs of trauma. BACK: Pain to palpation over the lumbar spine and paraspinous muscles Centered at the midline well healed surgical scar. Normal range of motion without pain reproduction. Negative bilateral straight leg raise. EXTREMITIES: Peripheral joint ROM is full and pain free without obvious instability or laxity in all four extremities. No deformities, edema, or skin discoloration. SKIN: Skin color, texture, turgor normal, no rashes or lesions PSYCH: Mood and affect is appropriate. Awake, alert, and oriented x 3 NEURO: Grossly intact GAIT: Steady without assist devices ASSESSMENT: Man Bravo is a 37 year old male with low back and bilateral leg pain who presents for medication refills as an established patient of Dr. Aceves. He was injured in 2006 when he fell off of a ladder at work onto a stack of barn beans. He suffered a herniated disc. This was followed by a microdiscectomy which did no alleviate the pain. Patient has hypokalemic periodic paralysis and is considering seeing a specialist. 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 He has a Medtronic paddle lead SCS system in place that was implanted by Dr. Espinoza in 2008. Patient had three years of good pain relief followed be a revision done on 04/04/12. HX RECALL: Patient's lower extremity pain is well controlled at this time. The low back pain is his most pressing concern. He has followed up with Dr. Miranda about doing a revision of the SCS. He is still awaiting a decision on moving forward with an an SCS trial at this time. He has several options at this time. One involves trialing a Nevros SCS system. Patient will have right rotator cuff repair on 11/30/2017 in [place], [place]. His post op pain will be managed by the surgeon. He had his right shoulder cleaned up a bit on 11/30/2017. He does have a rotator cuff tear with fraying. He will have a CT arthrogram of the right shoulder tomorrow. This is being done to check for worsened tearing and fraying since the procedure. He feel that he has become somewhat tolerant to his current does of Methadone. He was started on Celebrex 200 mg BID recently. This was started by his Ortho surgeon at [facility] but it has not been helpful as of yet. Patient is waiting for the requested Thoracic myelogram. He will follow up with Dr. Miranda afterwards. M96.1 Postlaminectomy syndrome, lumbar region M47.816 Lumbar spondylosis PLAN: 1) Continue current medication regimen as established by Dr. Aceves 2) Refilled Methadone 30mg BID for 2 months 3) Refilled Linzess for 2 months 4) Follow up with Dr. Espinoza/Dr. Miranda for SCS revision/ possible trial 5) Continue follow up with Ortho Surg 6) Counseled patient regarding the importance of activity modification, exercise and consistent sleep habits 7) RTC for medication refills in two months. The above plan and management options were discussed at length with patient. Patient is in agreement with the above and verbalized understanding. MAVIS Cesar-Aminah January 20, 2018 Referring Provider: ILAN ACEVES [[id number]] Allergies As of Date: 01/20/2018 Noted Allergy Reaction VICODIN (HYDROCODONE-ACETAMINOPHE*11/15/2011 4 - Hives Date Reviewed: 01/20/2018 Reviewed by: MAVIS Cesar - Fully Assessed Visit Diagnoses:Postlaminectomy syndrome, lumbar region [M96.1] Lumbar spondylosis [M47.816] Order(s):[START ON 03/03/2018] methadone (DOLOPHINE) 10 mg tabletTake 3 tablets by mouth twice daily for 30 days. Earliest Fill Date: 03/03/18Disp: 180 tabletRfl: 0 [START ON 02/01/2018] methadone (DOLOPHINE) 10 mg tabletTake 3 tablets by mouth twice daily for 30 days. Earliest Fill Date: 02/01/18Disp: 180 tabletRfl: 0 celecoxib (CELEBREX) 200 mg capsuleTake 1 capsule by mouth twice daily.Disp: Rfl: linaclotide (LINZESS) 290 mcg capTake 1 capsule by mouth once daily.Disp: 30 capsuleRfl: 1 Prescriptions as of 01/20/2018 Sig: * AMILORIDE 5 MG TABLET Take one tablet once a day LEVOTHYROXINE 25 MCG TABLET Take 1 tablet by mouth once d* LINACLOTIDE 290 MCG CAPSULE Take 1 capsule by mouth once * METHADONE 10 MG TABLET Take 3 tablets by mouth twice* METHADONE 10 MG TABLET Take 3 tablets by mouth twice* * K-DUR 20 MEQ TABLET,EXTENDED * Take two tablets three times * SERTRALINE 100 MG TABLET Take 200 mg by mouth once genoveva* TESTOSTERONE CYPIONATE 200 MG* INJECT 0.5 ML IM ONCE WEEKLY CELECOXIB 200 MG CAPSULE Take 1 capsule by mouth twice* Problem List As Of Date 01/20/2018 Noted Resolved POSTLAMINECT SYND-LUMBAR [M96.1] INVALID FOR* ABNORMAL COAGULATION PROFILE [R79.1] INVALID FOR* Lumbar spondylosis [M47.816] INVALID FOR* Prescriptions ordered this encounter Disp Refills Start End METHADONE 10 MG TABLET 180 * 0 03/03/2018 04/02/2018 Class: Print RX Route: ORAL Sig: Take 3 tablets by mouth twice daily for 30 days. Earliest Fill Date: 03/03/18 METHADONE 10 MG TABLET 180 * 0 02/01/2018 03/03/2018 Class: Print RX Route: ORAL Sig: Take 3 tablets by mouth twice daily for 30 days. Earliest Fill Date: 02/01/18 CELECOXIB 200 MG CAPSULE 01/20/2018 Class: Med Update Route: ORAL Sig: Take 1 capsule by mouth twice daily. LINACLOTIDE 290 MCG CAPSULE 30 c* 1 01/20/2018 Route: ORAL Sig: Take 1 capsule by mouth once daily. Medications Discontinued During This Encounter methadone (DOLOPHINE) 10 mg tablet 180 * 0 12/31/2017 01/20/2018 Class: Print RX Route: ORAL Sig: Take 3 tablets by mouth twice daily for 30 days. Earliest Fill Date: 12/31/17 Disc: Reason for discontinue is not on file. methadone (DOLOPHINE) 10 mg tablet 180 * 0 12/01/2017 01/20/2018 Class: Print RX Route: ORAL Sig: Take 3 tablets by mouth twice daily for 30 days. Earliest Fill Date: 12/01/17 Disc: Reason for discontinue is not on file. linaclotide (LINZESS) 290 mcg cap 30 c* 1 11/21/2017 01/20/2018 Route: ORAL Sig: Take 1 capsule by mouth once daily. Disc: Reason for discontinue is not on file. Follow-up and Disposition History Recorded Encounter Status:Closed by SAULO NÚÑEZ PA-C on 01/21/18 ARTHROGRAM SHOULDER Observed: 01/19/2018 Status: F Source: [place] 8:48 AM [facility] [place] REPOSITORY [facility] 83 [place] [id number] Arthrogram Shoulder MR#: [id number] Acct: [id number] Name: MAN BRAVO Rep #: [id number] : 1980 M 37 From: Primo Goff MD PCP: Sherri Patterson DO Status: REG CLI Study: Arthrogram Shoulder Date of Exam: 01/19/18 Exam# [id number] Ordering Dr: Michael Rubalcava DO CLINICAL HISTORY: Male, 37 years old. Chronic shoulder pain. History of shoulder impingement and possible rotator cuff tear. PROCEDURE: ARTHROGRAM - RIGHT SHOULDER CONSENT: The procedure as well as benefits and possible complications of the procedure were explained to the patient. Informed consent was obtained. FLUOROSCOPY TIME (if supplied): (0:30) minutes/seconds Injection Information: 10 cc of dilute Magnevist. Number of images obtained: 4 TECHNIQUE: (All elements of maximal sterile barrier technique followed, including US elements as applicable) The patient was in the supine position. The overlying skin was prepped and draped in usual sterile fashion. Following local anesthetic application and under direct fluoroscopic guidance, a 22-gauge spinal needle was placed into the shoulder joint. 2 cc of the Isovue 300 was injected for confirmation. Following this, 10 cc of dilute Magnevist was injected. The patient tolerated procedure well. A CT scan of the shoulder will follow. RAD/Arthrogram Shoulder IMPRESSION: Successful right shoulder arthrogram for CT exam patient. Electronically Signed: Primo Goff MD at 10:02 EST Tel [phone], Service support , CC: Sherri Patterson DO; Michael Rubalcava DO End Trimmer: Signed EXTREMITY UPPER Observed: 01/19/2018 Status: F Source: [place] WITHOUT CONTRA 8:48 AM [facility] REPOSITORY [facility] [address] [place] [address] Extremity Upper without Contra MR#: [id number] Acct: [id number] Name: MAN BRAVO Rep #: [id number] : 1980 M 37 From: Primo Goff MD PCP: Sherri Patterson DO Status: REG CLI Study: Extremity Upper without Contra Date of Exam: 01/19/18 Exam# [id number] Ordering Dr: Michael Rubalcava DO STUDY: CT RIGHT SHOULDER REASON FOR EXAM: Male, 37 years old. Impingement syndrome. Right shoulder pain. RADIATION DOSAGE (If Supplied By Facility): CTDIvol = ( 39.63 ) mGy, DLP = ( 646.10 ) mGycm TECHNIQUE: The patient was scanned in a multi detector CT scanner. High resolution transaxial imaging was performed following intra-articular administration of 10 cc of dilute Magnevist contrast material. Sagittal and coronal images were reconstructed. Individualized dose optimization techniques were used for this CT. COMPARISON: Comparison is made with prior study dated October 20, 2017. FINDINGS: There is evidence of a partial tear of the rotator cuff. Normal glenohumeral articulation. Normal glenoid rim, neck and visualized scapula. Normal humeral head, neck and tuberosities. Normal coracoid process. Normal visualized lateral clavicle. There is mild osteoarthritis with articular joint space narrowing. No evidence of impingement. There is a Type II morphology (curved), with a neutral orientation. Normal visualized muscles and soft tissue structures. CT/Extremity Upper without Contra IMPRESSION: Partial tear of the rotator cuff. Electronically Signed: Primo Goff MD at 10:28 EST Tel [phone], Service support , CC: Sherri Patterson DO; Michael Rubalcava DO End Trimmer: Signed PHOS Collected: 12/06/2017 Status: F Source: [facility] 9:50 AM [facility] REPOSITORY TYPE CODE TESTS RESULT OUT OF REFERENCE UNITS RANGE LAB PHOS(LOINC 2.7-4.5 mg/dL ) Phosphorus 4.1 Performed By: #### PHOS #### [place] [address] BMP Collected: 12/06/2017 Status: F Source: [facility] 9:12 AM [facility] REPOSITORY TYPE CODE TESTS RESULT OUT OF REFERENCE UNITS RANGE LAB GLU(LOINC) 70-105 mg/dL Glucose Level 96 LAB NA(LOINC) 136-145 mmol/L Sodium Level 138 LAB K(LOINC) 3.5-5.1 mmol/L Potassium Level 4.0 LAB CL(LOINC) 98-107 mmol/L Chloride 100 LAB CO2(LOINC) 22-29 mmol/L CO2 29 LAB EBAL(LOINC mEq/L ) Electrolyte Balance 9.0 LAB BUN(LOINC) 7-18 mg/dL BUN 17 LAB CRE(LOINC) 0.70-1.30 mg/dL Creatinine Lvl (s) 1.15 LAB BC(LOINC) 7-27 ratio BUN/Creatinine 15 Ratio LAB CA(LOINC) 8.4-10.2 mg/dL Calcium Lvl High 10.5 Performed By: #### BMP, GFR #### [facility] [address] [place] [address] .GFR Collected: 12/06/2017 Status: F Source: [facility] 9:12 AM [facility] REPOSITORY TYPE CODE TESTS RESULT OUT OF REFERENCE UNITS RANGE LAB GFRAA(LOINC ml/min/1.73 ) sqm GFR 87 [place] Result Comment: GFR Population mean for , Non- Americans Ages 20-29 = 116 mL/min/1.73 sq.m. Ages 30-39 = 107 mL/min/1.73 sq.m. Ages 40-49 = 99 mL/min/1.73 sq.m. Ages 50-59 = 93 mL/min/1.73 sq.m. Ages 60-69 = 85 mL/min/1.73 sq.m. Ages 70+ = 75 mL/min/1.73 sq.m. Chronic Kidney Disease: Less than 60 mL/min/1.73 square meters End Stage Renal Disease: Less than 15 mL/min/1.73 square meters LAB GFRNO(LOINC) ml/min/1.73sqm GFR Non- 72 Result Comment: GFR Population mean for , Non- Americans Ages 20-29 = 116 mL/min/1.73 sq.m. Ages 30-39 = 107 mL/min/1.73 sq.m. Ages 40-49 = 99 mL/min/1.73 sq.m. Ages 50-59 = 93 mL/min/1.73 sq.m. Ages 60-69 = 85 mL/min/1.73 sq.m. Ages 70+ = 75 mL/min/1.73 sq.m. Chronic Kidney Disease: Less than 60 mL/min/1.73 square meters End Stage Renal Disease: Less than 15 mL/min/1.73 square meters Performed By: #### BMP, GFR #### [facility] [address] [place] [address] DISCHARGE SUMMARY Observed: 12/02/2017 Status: F Source: [place] 2:06 PM [facility] REPOSITORY [facility] Medical Records Department [address] [place] [address] Discharge Summary 12/02/17 1359 MR#: [id number] Acct: [id number] Name: MAN BRAVO Rep #: [id number] : 1980 37 From: Onesimo Felix MD PCP: Sherri Patterson DO Status: ADM IN Y Location: [place] [address] Discharge Date and Diagnosis - Problem List Patient Problems: Active and Suspected Problems Generalized weakness (Acute) Date of Admission: 12/01/17 Date of Discharge: 12/02/17 - Primary Discharge Diagnosis Active and Suspected Problems Generalized weakness (Acute) Hospital Course and Treatment Imaging Results: None Consults: None Operations: None Procedures: None Summary of Care Provided: Per HPI: The patient is a 37 year old M with past medical history of hypokalemic periodic paralysis. He was admitted from [facility] on 12/01/2017 with complaint of generalized weakness of one days duration. Patient had right shoulder surgery 1 day ago at [facility]. He was initially told that it was thought it might be a rotator cuff injury but during the surgery was found that it was due to arthritis and bone spurs. He subsequently was discharged the same day and he went home. In the early hours of this morning started feeling very weak. His symptoms resolved but recurred around 7 AM this morning. He went to [facility] where he was found to have potassium of 1.6. Potassium was replaced and a femoral line was put in and patient was transferred to [facility]. Patient complained of severe pain in the right shoulder from surgery and also pain at the site of the femoral line insertion. He denied any fever or chills, any cough or chest pain, any shortness of breath, any abdominal pain, any diarrhea vomiting but still complained of persistent weakness. Review of systems is otherwise negative. EKG done at [facility] showed no acute ST changes. He has been admitted to be managed hypokalemia. Vital Signs - 24 hr General: Alert, Oriented x3, Cooperative, No apparent distress HEENT: Atraumatic, PERRLA, EOMI, Normocephalic Oral: Moist Mucosa Neck: Supple, No JVD Lungs: Clear to auscultation, Normal air movement, No rhonchi, No wheeze, No rales Cardiovascular: Regular rate, Regular Rhythm, Normal S1, Normal S2, No murmurs Abdomen: Soft, Non Tender, Non-Distended, No Hepato-splenomegaly Extremities: No edema, Capillary Refill Less than 3 Seconds Skin: No rashes, No breakdown Musculoskeletal: No Tenderness to Palpation of Joints or Extremities Neurological: Motor Exam 5/5 strength throughout, Sensory exam intact to light touch and pain Psych/Mental Status: Normal Affect, Appropriate Hospital Course: 1. 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 He had not had a problem since. Then 3 days ago he had surgery and presented to [facility] with sudden onset paralysis. His potassium 1.6 and aggressively replaced. Today his potassium is 5.4 and he is back to baseline. I discussed with him that he will likely need to remain on potassium and he should probably take enough to be in the high range of normal. If he would like to know exactly what the cause then he will need an outpatient neurology/genetic work-up. 2. his other diagnoses were evaluated and his home medications were continued where appropriate Patient Problems: Active and Suspected Problems Generalized weakness (Acute) - Physical Exam Vital Signs Temp Pulse Resp BP Pulse Ox 97.8 F 86 17 134/75 H 95 12/02/17 09:42 12/02/17 09:42 12/02/17 09:42 12/02/17 09:42 12/02/17 09:42 Oxygen Delivery Method Room Air Weight: 252 lb 1.6 oz Body Mass Index (BMI) 34.2 Intake and Output for Last 24 Hours Intake Total 1194 / 1194 825 / 825 Output Total 2800 / 2800 500 / 500 Balance -1606 / -1606 325 / 325 Laboratory Tests Past 24 Hrs WBC 9.6 RBC 4.81 Hgb 15.0 Hct 43.8 MCV 91.1 MCH 31.2 MCHC 34.2 RDW 13.7 RDW Differential 45.0 H Discharge Activity: No Restrictions Call your doctor if you observe: Numbness or Tingling, Shortness of breath, Chest pain, Increased palpitations (irregular heartbeat), - - weakness Home Medications: Medications to take at Discharge Amiloride HCl 10 mg PO DAILY 12/01/17 Linaclotide [Linzess] 290 mcg PO DAILY 12/01/17 Methadone HCl 30 mg PO BID 12/01/17 Oxycodone [Oxyir] 1 - 2 tab PO Q6H PRN 12/01/17 Sertraline HCl [Zoloft] 100 mg PO DAILY 12/01/17 Synthroid 25 mcg PO DAILY 12/01/17 Testosterone Cypionate [Depo-Testosterone] 0.5 ml IM QWEEK 12/01/17 Potassium Chloride [K-Dur] 20 meq PO DAILY #30 tablet 12/02/17 Following Prescrptions Were Given to Patient: Potassium Chloride [K-Dur] 20 meq PO DAILY #30 tablet Other Amb Orders: Basic Metabolic Profile (BMP) Time Frame: 3 Days, Location: Laboratory Primary Care Physician: Sherri Patterson DO [Primary Care Provider] - Please follow up with your Primary Care Physician in: in 3- 5 days Disposition: Home Minutes spent on discharge:: 35 Patient Condition:: Good Medical Necessity - Tobacco Use Smoking Status: Never smoker Meaningful Use Info Meaningful Use Diagnoses (Choose all that apply): None applicable Code Visit Inpatient E AND M: 56208 Disch Hosp 12/02/17 1406 <Electronically signed by Onesimo Felix MD> Date Onesimo Felix MD Cosigner Signature (if applicable): Date CC: Sherri Patterson DO; Onesimo Felix MD Signed DISCHARGE INSTRUCTION Observed: 12/02/2017 Status: F Source: [place] 1:58 PM [facility] REPOSITORY [facility] Medical Records Department [address] [place] [address] Instructions for Home/Discharge Instructions 12/02/17 1353 MR#: [id number] Acct: [id number] Name: MAN BRAVO Rep #: [id number] : 1980 37 From: Onesimo Felix MD PCP: Sherri Patterson DO Status: ADM IN - Discharge Diagnoses Current Active Problems: Current Active and Chronic Problems Generalized weakness (Acute) You will use the following diet at home:: Regular Your food should be the consistency of: Regular Your liquids should be the consistency of: Regular/Thin Discharge Activity: No Restrictions Call your doctor if you observe: Numbness or Tingling, Shortness of breath, Chest pain, Increased palpitations (irregular heartbeat), - - weakness Allergies/Adverse Reactions: Allergies hydrocodone [From Vicodin] Allergy (Verified 10/20/17 07:03) Unknown Medications to take at Discharge Amiloride HCl 10 mg PO DAILY 12/01/17 Linaclotide [Linzess] 290 mcg PO DAILY 12/01/17 Methadone HCl 30 mg PO BID 12/01/17 Oxycodone [Oxyir] 1 - 2 tab PO Q6H PRN 12/01/17 Sertraline HCl [Zoloft] 100 mg PO DAILY 12/01/17 Synthroid 25 mcg PO DAILY 12/01/17 Testosterone Cypionate [Depo-Testosterone] 0.5 ml IM QWEEK 12/01/17 Potassium Chloride [K-Dur] 20 meq PO DAILY #30 tablet 12/02/17 The following prescriptions were given: Potassium Chloride [K-Dur] 20 meq PO DAILY #30 tablet Orders to be completed after discharge: Basic Metabolic Profile (BMP) Time Frame: 3 Days, Location: Laboratory Primary Care Physician: Sherri Patterson DO [Primary Care Provider] - Please follow up with your Primary Care Physician in: in 3- 5 days Test Results: Test results from this visit will be discussed in further detail at your follow-up appointment, if applicable. 12/02/17 1358 <Electronically signed by Onesimo Felix MD> Date Onesimo Felix MD CC: Sherri Patterson DO CBC W/DIFF, AUTOMATED Collected: 12/02/2017 Status: F Source: [place] 5:45 AM [facility] REPOSITORY Order Comment: SPECIMEN OBTAINED FROM LINE DRAW TYPE CODE TESTS RESULT OUT OF RANGE REFERENCE UNITS LAB L100.1000 4.4-11.0 K/mm3 Normal WBC 9.6 LAB L100.1200 4.6-6.2 M/mm3 Normal RBC 4.81 LAB L100.1300 13.0-16.5 g/dl Normal HGB 15.0 LAB L100.1400 40-54 % Normal HCT 43.8 LAB L100.1500 80-94 fL Normal MCV 91.1 LAB L100.1600 27.0-32.0 pg Normal MCH 31.2 LAB L100.1700 32-36 g/gl Normal MCHC 34.2 LAB L100.1810 11.6-14.6 % Normal RDW CV 13.7 LAB L100.1820 35.1-43.9 fl High RDW SD 45.0 LAB L100.1900 150-450 K/mm3 Normal PLT 210 LAB L100.2000 6.2-12.0 fl Normal MPV 8.4 LAB L100.2100 47-70 % Normal NEUT% 61.1 LAB L100.2200 19-41 % Normal LY% 25.2 LAB L100.2300 0-10 % High MONO% 11.5 LAB L100.2400 0-5 % Normal EO% 1.8 LAB L100.2500 0-1 % Normal BASO% 0.2 LAB L100.2550 0.0-0.9 % Normal IM GRAN % 0.200 Result Comment: IG% - Immature Granulocytes (promyelocytes, myelocytes and metamyelocytes) > 1% indicates that a LEFT SHIFT is Present. LAB L100.2620 2.0-7.7 X10 3/uL Normal Absolute Neut 5.8 LAB L100.2720 0.83-4.51 X10 3/ul Normal Absolute Lymph 2.41 Performed By: #### L100.0100 #### [facility] [place], [place], [id number] BASIC METABOLIC Collected: 12/02/2017 Status: F Source: [place] PROFILE ([facility]) 5:45 AM [facility] REPOSITORY Order Comment: SPECIMEN OBTAINED FROM LINE DRAW TYPE CODE TESTS RESULT OUT OF RANGE REFERENCE UNITS LAB L501.0100 74-106 mg/dL Normal GLU 101 Result Comment: Fasting Glucose result from 100 to 125 mg/dL suggests IMPAIRED HOMEOSTASIS per A.D.A. criteria. Please note revised GLUCOSE reference range effective 2017. LAB L501.1000 7-18 mg/dL Normal BUN 12 LAB L501.1100 0.70-1.30 mg/dL Normal CREAT,SERUM 1.04 Result Comment: The validity of the calculated GFR AND GFRAA in patients over 70 years has not been determined. Clinical correlation is essential. LAB L501.1110 >60 mL/min Normal EST GFR 85 Result Comment: Non- GFR Calc LAB L501.1115 >60 mL/min Normal EST GFR - AA 103 Result Comment: GFR Calc LAB L501.1255 ml/min Normal Estimated CRCL 106.74 LAB L501.1300 10-20 RATIO BUN/CRE Normal 11.5 LAB L501.2200 8.5-10 mg/dL Low .1 CA 8.1 LAB L501.5300 136-14 mmol/L 5 NA Normal 141 LAB L501.5600 3.5-5. mmol/L High 1 K 5.4 LAB L501.5900 98-107 mmol/L CL Normal 107 LAB L501.6100 21.0-3 mmol/L 2.0 CO2 Normal 29.0 LAB L501.6200 5-15 GAP Normal 5 Performed By: #### L500.2500 #### [facility] [place], [address] BASIC METABOLIC Collected: 12/02/2017 Status: F Source: [place] PRO[facility] ([facility]) 1:15 AM [facility] REPOSITORY TYPE CODE TESTS RESULT OUT OF RANGE REFERENCE UNITS LAB L501.0100 74-106 mg/dL High GLU 113 Result Comment: Fasting Glucose result from 100 to 125 mg/dL suggests IMPAIRED HOMEOSTASIS per A.D.A. criteria. Please note revised GLUCOSE reference range effective 2017. LAB L501.1000 7-18 mg/dL Normal BUN 12 LAB L501.1100 0.70-1.30 mg/dL Normal CREAT,SERUM 1.07 Result Comment: The validity of the calculated GFR AND GFRAA in patients over 70 years has not been determined. Clinical correlation is essential. LAB L501.1110 >60 mL/min Normal EST GFR 83 Result Comment: Non- GFR Calc LAB L501.1115 >60 mL/min Normal EST GFR - AA 100 Result Comment: GFR Calc LAB L501.1255 ml/min Normal Estimated CRCL 103.75 LAB L501.1300 10-20 RATIO BUN/CRE Normal 11.2 LAB L501.2200 8.5-10 mg/dL Low .1 CA 7.9 LAB L501.5300 136-14 mmol/L 5 NA Normal 138 LAB L501.5600 3.5-5. mmol/L High 1 K alert 6.0 Result Comment: Critical Result(s) Called at: 01:56:37 12/02/2017 by: REBECA SINGLETON RN PCU LAB L501.5900 98-107 mmol/L High CL 108 LAB L501.6100 21.0-32.0 mmol/L Normal CO2 30.0 LAB L501.6200 5-15 Low 0 GAP Performed By: #### L500.2500 #### [facility] [address] [place], [address] BASIC METABOLIC Collected: 12/01/2017 Status: F Source: [place] PRO[facility] ([facility]) 9:15 PM [facility] REPOSITORY TYPE CODE TESTS RESULT OUT OF RANGE REFERENCE UNITS LAB L501.0100 74-106 mg/dL Normal GLU 102 Result Comment: Fasting Glucose result from 100 to 125 mg/dL suggests IMPAIRED HOMEOSTASIS per A.D.A. criteria. Please note revised GLUCOSE reference range effective 2017. LAB L501.1000 7-18 mg/dL Normal BUN 12 LAB L501.1100 0.70-1.30 mg/dL Normal CREAT,SERUM 1.09 Result Comment: The validity of the calculated GFR AND GFRAA in patients over 70 years has not been determined. Clinical correlation is essential. LAB L501.1110 >60 mL/min Normal EST GFR 81 Result Comment: Non- GFR Calc LAB L501.1115 >60 mL/min Normal EST GFR - AA 98 Result Comment: GFR Calc LAB L501.1255 ml/min Normal Estimated CRCL 101.85 LAB L501.1300 10-20 RATIO BUN/CRE Normal 11.0 LAB L501.2200 8.5-10 mg/dL Low .1 CA 7.7 LAB L501.5300 136-14 mmol/L 5 NA Normal 140 Result Comment: CALLED [facility] WITH CRITICAL K BY MAF 12-01-17 AT 2158PM READ BACK BY SAME LAB L501.5600 3.5-5.1 mmol/L High alert K 6.0 LAB L501.5900 98-107 mmol/L High CL 110 LAB L501.6100 21.0-32.0 mmol/L Normal CO2 29.0 LAB L501.6200 5-15 Low 1 GAP Performed By: #### L500.2500 #### [facility] [address] [facility] [place], [address] HISTORY AND PHYSICAL Observed: 12/01/2017 Status: F Source: [place] EXAM 8:59 PM [facility] REPOSITORY [facility] Medical Records Department [address] [place] [address] History and Physical 12/01/17 1505 MR#: [id number] Acct: [id number] Name: MAN BRAVO Rep #: [id number] : 1980 37 From: Odilia Shepard MD PCP: Sherri Patterson DO Status: ADM IN Y Location: [place] [address] Problem List (1) Generalized weakness Status: Acute History of Present Illness Date of Admission: 12/01/17 Chief Complaint: generalised weakness The patient is a 37 year old M with past medical history of hypokalemic periodic paralysis. He was admitted from [facility] on 12/01/2017 with complaint of generalized weakness of one days duration. Patient had right shoulder surgery 1 day ago at [facility]. He was initially told that it was thought it might be a rotator cuff injury but during the surgery was found that it was due to arthritis and bone spurs. He subsequently was discharged the same day and he went home. In the early hours of this morning started feeling very weak. His symptoms resolved but recurred around 7 AM this morning. He went to [facility] where he was found to have potassium of 1.6. Potassium was replaced and a femoral line was put in and patient was transferred to [facility]. Patient complained of severe pain in the right shoulder from surgery and also pain at the site of the femoral line insertion. He denied any fever or chills, any cough or chest pain, any shortness of breath, any abdominal pain, any diarrhea vomiting but still complained of persistent weakness. Review of systems is otherwise negative. EKG done at [facility] showed no acute ST changes. He has been admitted to be managed hypokalemia. [] Past Medical History Allergies hydrocodone [From Vicodin] Allergy (Verified 10/20/17 07:03) Unknown Home Medications: Ambulatory Orders Medication Instructions Recorded Amiloride HCl 10 mg PO DAILY 12/01/17 Linaclotide [Linzess] 290 mcg PO DAILY 12/01/17 Methadone HCl [(None)] 30 mg PO BID 12/01/17 Oxycodone [Oxyir] 1 - 2 tab PO Q6H PRN 12/01/17 Surgical History: - - right shoulder surgery (11/30/17) Psychiatric History: No pertinent psych hx Lives: With Family Smoking Status: Never smoker Alcohol: Occasional Drugs: None - *Family History Paternal History Items: Cancer, - - Multiple sclerosis Maternal History Items: No pertinent history Review of Systems Constitutional: Reports: Malaise, Weakness, Fatigue. Denies: Chills, Fever, Weight Change Eyes: Denies: Blurred vision, Double vision HEENT: Denies: Head Aches, Sinus Congestion, Sinus Drainage Cardiovascular: Denies: Chest Pain, Palpitations Respiratory: Denies: Cough, Shortness of breath at rest, Sputum production Gastrointestinal: Denies: Abdominal Pain, Nausea, Vomiting Genitourinary: Denies: Dysuria Musculoskeletal: Reports: Shoulder Pain - right shoulder pain Neurological: Denies: Numbness, Tingling, Focal weakness Psychiatric: Denies: Anxiety, Depression, Homicidal Ideations, Suicidal Ideations Hematologic/ Lymphatic: Denies: Easy Bruising, Easy Bleeding VTE Information - Inpt Only VTE Present on Admission: No VTE Pharm Prophylaxis ordered?: Yes Patient Problems: Active and Suspected Problems Generalized weakness (Acute) - Physical Exam General: Alert, Oriented x3, Cooperative, - - in moderate distress from pain HEENT: Atraumatic, PERRLA, EOMI, Normocephalic Oral: Dry Mucosa Neck: Supple, No JVD, Negative Carotid Bruits Lungs: Clear to auscultation, Normal air movement, No rhonchi, No wheeze, No rales Cardiovascular: Regular rate, Regular Rhythm, Normal S1, Normal S2, No murmurs Abdomen: Bowel Sounds Present, Soft, Non Tender, Non-Distended, No Hepato-splenomegaly Extremities: No clubbing, No cyanosis, No edema, Capillary Refill Less than 3 Seconds Skin: No rashes, No breakdown Musculoskeletal: - - right shoulder in a sling; Lymphatic: No Cervical, Supraclavicular, or Inguinal Adenopathy Neurological: Neuro grossly intact, - - power 4/5 in all extremities Psych/Mental Status: Normal Affect, Appropriate, Alert and oriented to time, place, person, mood and affect Vital Signs Temp Pulse Resp BP Pulse Ox 98.6 F 99 18 132/76 H 99 12/01/17 14:05 12/01/17 14:05 12/01/17 14:05 12/01/17 14:05 12/01/17 14:05 Oxygen Delivery Method Room Air Weight: 252 lb 1.6 oz Body Mass Index (BMI) 34.2 Laboratory Tests Past 24 Hrs Sodium 143 Potassium 2.8 L Chloride 109 H Carbon Dioxide 29.0 Anion Gap 5 BUN 14 Creatinine 1.13 Assessment/Plan All Active Problems Generalized weakness (Acute) 37-year-old male presenting with a complaint of generalized weakness of one days duration. 1. Hypokalemia in a patient with known hypokalemic periodic paralysis * Severe hypokalemia likely induced by stress of surgery as well. * Potassium was 1.6 at [facility]. * BMP ordered here potassium still pending. * will give IV KCl 40meq via femoral line * monitor BMP q4hrs until potassium is back to normal limits * Mg was 1.9 * 2. Right shoulder arthritis s/p surgery * today is POD 1. complains of severe pain * will give IV toradol for pain * on methadone for chronic back pain * 3. IBS: on linaclotide DVT prophylaxis: lovenox Gi prophylaxis: PPI Code Status: Full code. * Patient counseled about different types of CODE STATUS including DNR CC, full code and DNR CCA. Patient elects to be full code. Total agls-ug-omlc time 60 minutes. Code Visit Inpatient E AND M: 42623 Init Hosp L3 Procedures: 48823 Advncd Care Plan 30 Min 12/01/172058 <Electronically signed by Odilia Shepard MD> Date Odilia Shepard MD Cosigner Signature: Date (if applicable) CC: Sherri Patterson DO; Odilia Shepard MD Signed BASIC METABOLIC Collected: 12/01/2017 Status: F Source: [place] PROFILE (BMP) 2:40 PM [facility] REPOSITORY TYPE CODE TESTS RESULT OUT OF RANGE REFERENCE UNITS LAB L501.0100 74-106 mg/dL Normal GLU 106 Result Comment: Fasting Glucose result from 100 to 125 mg/dL suggests IMPAIRED HOMEOSTASIS per A.D.A. criteria. Please note revised GLUCOSE reference range effective 2017. LAB L501.1000 7-18 mg/dL Normal BUN 14 LAB L501.1100 0.70-1.30 mg/dL Normal CREAT,SERUM 1.13 Result Comment: The validity of the calculated GFR AND GFRAA in patients over 70 years has not been determined. Clinical correlation is essential. LAB L501.1110 >60 mL/min Normal EST GFR 78 Result Comment: Non- GFR Calc LAB L501.1115 >60 mL/min Normal EST GFR - AA 94 Result Comment: GFR Calc LAB L501.1255 ml/min Normal Estimated CRCL 98.24 LAB L501.1300 10-20 RATIO Normal BUN/CRE 12.4 LAB L501.2200 8.5-10 mg/dL Low .1 CA 8.0 LAB L501.5300 136-14 mmol/L Normal 5 NA 143 LAB L501.5600 3.5-5. mmol/L Low 1 K 2.8 LAB L501.5900 98-107 mmol/L High CL 109 LAB L501.6100 21.0-3 mmol/L Normal 2.0 CO2 29.0 LAB L501.6200 5-15 Normal GAP 5 Performed By: #### L500.2500, L501.2300, L501.5200 #### [facility] [address] [place], [address] PHOSPHORUS Collected: 12/01/2017 Status: F Source: [place] 2:40 PM [facility] REPOSITORY TYPE CODE TESTS RESULT OUT OF RANGE REFERENCE UNITS LAB L501.2300 2.5-4.9 mg/dL Low PHOS 1.9 Performed By: #### L500.2500, L501.2300, L501.5200 #### [facility] [address] [place], [address] MAGNESIUM Collected: 12/01/2017 Status: F Source: [place] 2:40 PM [facility] REPOSITORY TYPE CODE TESTS RESULT OUT OF RANGE REFERENCE UNITS LAB L501.5200 1.6-2.6 mg/dL Normal MG 2.3 Performed By: #### L500.2500, L501.2300, L501.5200 #### [facility] [address] [facility] [place], [address] BMP Collected: 12/01/2017 Status: F Source: [facility] 8:52 AM [facility] REPOSITORY TYPE CODE TESTS RESULT OUT OF RANGE REFERENCE UNITS LAB GLU(LOINC) 70-105 mg/dL High Glucose Level 112 LAB NA(LOINC) 136-145 mmol/L Sodium Level 140 LAB K(LOINC) 3.5-5.1 mmol/L Potassium Abnormal Level 1.6 Alert LAB CL(LOINC) 98-107 mmol/L Chloride 103 LAB CO2(LOINC) 22-29 mmol/L CO2 27 LAB EBAL(LOINC mEq/L ) Electrolyte Balance 10.0 LAB BUN(LOINC) 7-18 mg/dL BUN 13 LAB CRE(LOINC) 0.70-1.30 mg/dL Creatinine Lvl (s) 1.28 LAB BC(LOINC) 7-27 ratio BUN/Creatinine 10 Ratio LAB CA(LOINC) 8.4-10.2 mg/dL Calcium Lvl 9.3 Performed By: #### BMP, TSH, CK, GFR #### [address] [address] #### CBC, DIFF, MORPH #### [address] [address] TSH Collected: 12/01/2017 Status: F Source: [facility] 8:52 AM [facility] REPOSITORY TYPE CODE TESTS RESULT OUT OF RANGE REFERENCE UNITS LAB TSH(LOINC) 0.36-3.74 mcIU/mL TSH 1.14 Performed By: #### BMP, TSH, CK, GFR #### [place] [address] #### CBC, DIFF, MORPH #### [address] [address] CK Collected: 12/01/2017 Status: F Source: [facility] 8:52 AM [facility] REPOSITORY TYPE CODE TESTS RESULT OUT OF RANGE REFERENCE UNITS LAB CK(LOINC) 39-308 U/L High CPK 435 Performed By: #### BMP, TSH, CK, GFR #### [place] [address] #### CBC, DIFF, MORPH #### [address] [address] .GFR Collected: 12/01/2017 Status: F Source: [facility] 8:52 AM [facility] REPOSITORY TYPE CODE TESTS RESULT OUT OF REFERENCE UNITS RANGE LAB GFRAA(LOINC ml/min/1.73 ) sqm GFR 77 Green[place]ic Result Comment: GFR Population mean for , Non- Americans Ages 20-29 = 116 mL/min/1.73 sq.m. Ages 30-39 = 107 mL/min/1.73 sq.m. Ages 40-49 = 99 mL/min/1.73 sq.m. Ages 50-59 = 93 mL/min/1.73 sq.m. Ages 60-69 = 85 mL/min/1.73 sq.m. Ages 70+ = 75 mL/min/1.73 sq.m. Chronic Kidney Disease: Less than 60 mL/min/1.73 square meters End Stage Renal Disease: Less than 15 mL/min/1.73 square meters LAB GFRNO(LOINC) ml/min/1.73sqm GFR Non- 63 Result Comment: GFR Population mean for , Non- Americans Ages 20-29 = 116 mL/min/1.73 sq.m. Ages 30-39 = 107 mL/min/1.73 sq.m. Ages 40-49 = 99 mL/min/1.73 sq.m. Ages 50-59 = 93 mL/min/1.73 sq.m. Ages 60-69 = 85 mL/min/1.73 sq.m. Ages 70+ = 75 mL/min/1.73 sq.m. Chronic Kidney Disease: Less than 60 mL/min/1.73 square meters End Stage Renal Disease: Less than 15 mL/min/1.73 square meters Performed By: #### BMP, TSH, CK, GFR #### [address] [address] #### CBC, DIFF, MORPH #### [address] [address] CBC Collected: 12/01/2017 Status: F Source: [facility] 8:52 AM [facility] REPOSITORY TYPE CODE TESTS RESULT OUT OF REFERENCE UNITS RANGE LAB WBC(LOINC) 4.60-10.80 10 3/mcL High WBC 17.30 LAB RBCCT(LOINC 4.04-6.13 10 6/mcL ) RBC 5.78 LAB HGB(LOINC) 14.0-18.0 G/dL Hgb 17.4 LAB HCT(LOINC) 42.0-52.0 % Hct 51.1 LAB MCV(LOINC) 80.0-94.0 fL MCV 88.5 LAB MCH(LOINC) 27.0-31.2 pg MCH 30.0 LAB MCHC(LOINC) 31.8-35.4 G/dL MCHC 34.0 LAB RDW(LOINC) 11.5-14.5 % RDW 13.1 LAB PLT(LOINC) 130-400 10 3/mcL Platelet 271 LAB MPV(LOINC) 7.4-10.4 fL Low MPV 6.1 Performed By: #### BMP, TSH, CK, GFR #### [address] [address] #### CBC, DIFF, MORPH #### [place] [address] [place], [place] [address] .MANUAL DIFF Collected: 12/01/2017 Status: F Source: [facility] 8:52 AM [facility] REPOSITORY TYPE CODE TESTS RESULT OUT OF REFERENCE UNITS RANGE LAB NEUM(LOINC 37.0-80.0 % ) Neutrophil %, 73.0 Manual LAB LYMM(LOINC 10.0-50.0 % ) Lymphocyte %, 12.0 Manual LAB MONM(LOINC 1.7-13.0 % ) Monocyte %, Manual 9.0 LAB EOM(LOINC) 0.0-7.0 % Eosinophil %, 0.0 Manual LAB BASM(LOINC 0.0-2.5 % ) Basophil %, Manual 1.0 LAB BAND(LOINC 0.0-5.0 % ) Bands 5.0 LAB ANEUM(LOIN 2.85-6.16 10 3/mcL C) High Neutrophil, Abs 13.50 Manual LAB ABLYMM(MANISH 0.77-3.85 10 3/mcL NC) Lymphocyte, Abs 2.10 Manual LAB AMONM(LOIN 0.15-1.00 10 3/mcL C) High Monocyte, Abs 1.60 Manual LAB AEOSM(LOIN 0.00-0.40 10 3/mcL C) Eosinophil, Abs 0.00 Manual LAB ABASM(LOIN 0.00-0.19 10 3/mcL C) High Basophil, Abs 0.20 Manual Performed By: #### BMP, TSH, CK, GFR #### [place] [address] #### CBC, DIFF, MORPH #### [address] [address] .MORPH Collected: 12/01/2017 Status: F Source: [facility] 8:52 AM [facility] REPOSITORY TYPE CODE TESTS RESULT OUT OF REFERENCE UNITS RANGE LAB PLTE(LOINC ) Platelet Estimate Normal LAB STMT(LOINC ) Stomatocytes Few LAB TGR(LOINC) Toxic Gran Moderate Performed By: #### BMP, TSH, CK, GFR #### [place] [id number] #### CBC, DIFF, MORPH #### [place] [address] [place], [place] [address] MG Collected: 12/01/2017 Status: F Source: [facility] 8:52 AM [facility] REPOSITORY TYPE CODE TESTS RESULT OUT OF REFERENCE UNITS RANGE LAB MG(LOINC) 1.8-2.4 mg/dL Magnesium Lvl 1.9 Performed By: #### MG #### [facility] [address] [place] [id number] PHOS Collected: 12/01/2017 Status: F Source: [facility] 8:52 AM [facility] REPOSITORY TYPE CODE TESTS RESULT OUT OF REFERENCE UNITS RANGE LAB PHOS(LOINC 2.7-4.5 mg/dL ) Phosphorus 3.2 Performed By: #### PHOS #### [facility] [address] [place] [id number] PROGRESS Observed: 11/21/2017 Status: COMPLETED Source: [place] 12:14 PM [facility] REPOSITORY HNO ID: [id number] Author: MAVIS Cesar Service: (none) Author Type: Physician Esthetics Instructor Type: Progress Notes Filed: 11/21/2017 8:10 PM Note Text: Chronic Pain Management Follow-Up Evaluation Date: November 21, 2017 Chief Complaint: Low back pain SUBJECTIVE: Man Barvo presents to [facility] Department for a followup appointment for medication refills for low back pain as an established patient of Dr. Aceves. He was injured in 2006 when he fell off of a ladder at work onto a stack of [employer] and [employer] beans. He suffered a herniated disc. This was followed by a microdiscectomy which did no alleviate the pain. 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 Plan at last visit 09/26/2017: 1) Continue current medication regimen as established by Dr. Aceves 2) Refilled Methadone 30mg BID for 2 months 3) Refilled Linzess for 2 months 4) Follow up with Dr. Espinoza/Dr. Miranda as scheduled 5) Counseled patient regarding the importance of activity modification, exercise and consistent sleep habits 6) RTC for medication refills in two months. Since the last visit, Man Bravo states the pain has been increased as of late. Current pain intensity is 8 on a scale of 0-10. Pain Location: lower back that mainly radiates to the left leg. The low back pain is the greatest pain. The SCS mainly controls the leg pain. Duration: Since 2006. Pain character: pressure, aching, sharp Exacerbating factors: Activity Alleviating factors: medications, SCS Pain Medications: - Opioids: Methadone 30 mg BID, Percocet in the past. - NSAIDs: None - Anti-Depressants: Zoloft 100 mg - Anti-Convulsants: None - Others: Linzess Adverse Effects to Medications: none Pain Procedures: Medtronic paddle lead SCS system in place, implanted by Dr. Espinoza in 2008. Had three years of good pain relief. Revision done on 04/04/12. Opioid Agreement: Signed on . Last Pain Panel/Urine Tox and Assessment: Pain Panel last done on 05/23/2017 and found to be appropriate medications. OARRS report: Reviewed, November 21, 2017 and appropriate for reported medication use. Physical Therapy/Home Exercise: HEP Cardiac: EGG complete W Interpretation. - 08/30/2017: QTC Calculation: 416 ms - 03/03/2016: QTC Calculation: 413 ms - 12/23/2014: QTC Calculation: 424 ms - 02/22/2013: QTC Calculation: 414 ms - 03/23/2012: QTC Calculated: 434 ms Imaging: - XR of the lumbar spine done on 05/05/2015 IMPRESSION: Negative - XR of the Thoracic spine done on 04/04/2012 IMPRESSION: Stimulator device as described. - IR Myelo Thoracic 03/24/2012 IMPRESSION: TECHNICALLY SUCCESSFUL INTRATHECAL ADMINISTRATION OF CONTRAST FOR THORACIC CT MYELOGRAM. PAST MEDICAL HISTORY Diagnosis Date - Back pain - PMH - PAST MEDICAL HISTORY OF hypokalemic periodic pyralysis PAST SURGICAL HISTORY Procedure Laterality Date - PAST SURGICAL HISTORY OF 11/13 lumbar surgery - PAST SURGICAL HISTORY OF 2009 Spinal cord stimulator Medtronic - [place] ANESTH,DX ARTHROSCOPIC PROC KNEE JOINT 2000, 2001 right torn meniscus x 2 - THUMB 2003 gamekeeper's thumb surg FAMILY HISTORY Problem Relation Age of Onset - Hypertension Father - Cancer Father basal cell - other (multiple sclerosis) Father also father's sister - Diabetes Maternal Grandfather - Heart Maternal Grandfather - Diabetes Paternal Grandfather - Heart Paternal Grandfather Social History Marital status: Spouse name: Years of education: 12 Number of children: 2 Occupational History Occupation Employer Comment employed Social History Main Topics Smoking status: Never Smoker Smokeless tobacco: Current User Types: Chew Alcohol use: No Drug use: No Sexual activity: Yes Partners with: Female 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 REVIEW OF SYSTEMS: GENERAL: No weight loss, malaise or fevers. HEENT: Negative for frequent or significant headaches NECK: Negative for lumps, goiter, and significant neck swelling RESPIRATORY: Negative for cough, wheezing or shortness of breath. CARDIOVASCULAR: Negative for chest pain or palpitations. GI: Negative for blood in stools or black stools or change in bowel habits, nausea, vomiting, diarrhea, constipation MUSCULOSKELETAL: see HPI SKIN: Negative for lesions, rash, and itching. PSYCH: Negative for sleep disturbance, mood disorder and recent psychosocial stressors. HEMATOLOGY/LYMPHOLOGY: Clotting disorder? NEURO: No history of syncope, paralysis, seizures or tremors OBJECTIVE: GENERAL: Well appearing, in no acute distress HEENT: Normocephalic, atraumatic. RESPIRATORY: Respirations are unlabored GI: Abdomen soft and non-tender. MUSCULOSKELETAL: No atrophy or tone abnormalities are noted. Decreased ROM noted in the right shoulder due to rotator cuff injury suffered at a fairly recent recreational event. NECK: No pain with neck flexion, extension, or lateral flexion. No obvious deformity or signs of trauma. BACK: Pain to palpation over the lumbar spine and paraspinous muscles Centered at the midline well healed surgical scar. Normal range of motion without pain reproduction. Negative bilateral straight leg raise. EXTREMITIES: Peripheral joint ROM is full and pain free without obvious instability or laxity in all four extremities. No deformities, edema, or skin discoloration. SKIN: Skin color, texture, turgor normal, no rashes or lesions PSYCH: Mood and affect is appropriate. Awake, alert, and oriented x 3 NEURO: Grossly intact GAIT: Steady without assist devices ASSESSMENT: Man Bravo is a 37 year old male with low back and bilateral leg pain who presents for medication refills as an established patient of Dr. Aceves. He was injured in 2006 when he fell off of a ladder at work onto a stack of [employer] and [employer] beans. He suffered a herniated disc. This was followed by a microdiscectomy which did no alleviate the pain. 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 He has a Medtronic paddle lead SCS system in place that was implanted by Dr. Espinoza in 2008. Patient had three years of good pain relief followed be a revision done on 04/04/12. HX RECALL: Patient's lower extremity pain is well controlled at this time. The low back pain is his most pressing concern. He has followed up with Dr. Miranda about doing a revision of the SCS. He is still awaiting a decision on moving forward with an an SCS trial at this time. He has several options at this time. One involves trialing a Nevros SCS system. Patient will have right rotator cuff repair on 11/30/2017 in [place], [place]. His post op pain will be managed by the surgeon. M96.1 Postlaminectomy syndrome, lumbar region M47.816 Lumbar spondylosis PLAN: 1) Continue current medication regimen as established by Dr. Aceevs 2) Refilled Methadone 30mg BID for 2 months 3) Refilled Linzess for 2 months 4) Follow up with Dr. Espinoza/Dr. Miranda for SCS revision/ possible trial 5) Patient will have Right rotator cuff revision on 11/30/2017. His post op pain will be managed by the surgeon. 6) Counseled patient regarding the importance of activity modification, exercise and consistent sleep habits 7) RTC for medication refills in two months. The above plan and management options were discussed at length with patient. Patient is in agreement with the above and verbalized understanding. Saulo Núñez PA-C November 21, 2017 CNOV Observed: 11/21/2017 Status: COMPLETED Source: [place] 11:30 AM [facility] REPOSITORY Office Visit (PAINMN) MAN BRAVO ([id number]) 1980 M Date Time Provider Department 11/21/17 11:30 AM SAULO NÚÑEZ During your visit today, we recorded the following information about you: Saulo Núñez PA-C, MAVIS 11/21/2017 8:10 PM Signed Chronic Pain Management Follow-Up Evaluation Date: November 21, 2017 Chief Complaint: Low back pain SUBJECTIVE: Man Bravo presents to [facility] Department for a followup appointment for medication refills for low back pain as an established patient of Dr. Aceves. He was injured in 2006 when he fell off of a ladder at work onto a stack of barn beans. He suffered a herniated disc. This was followed by a microdiscectomy which did no alleviate the pain. 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 Plan at last visit 09/26/2017: 1) Continue current medication regimen as established by Dr. Aceves 2) Refilled Methadone 30mg BID for 2 months 3) Refilled Linzess for 2 months 4) Follow up with Dr. Espinoza/Dr. Miranda as scheduled 5) Counseled patient regarding the importance of activity modification, exercise and consistent sleep habits 6) RTC for medication refills in two months. Since the last visit, Man Bravo states the pain has been increased as of late. Current pain intensity is 8 on a scale of 0-10. Pain Location: lower back that mainly radiates to the left leg. The low back pain is the greatest pain. The SCS mainly controls the leg pain. Duration: Since 2006. Pain character: pressure, aching, sharp Exacerbating factors: Activity Alleviating factors: medications, SCS Pain Medications: - Opioids: Methadone 30 mg BID, Percocet in the past. - NSAIDs: None - Anti-Depressants: Zoloft 100 mg - Anti-Convulsants: None - Others: Linzess Adverse Effects to Medications: none Pain Procedures: Medtronic paddle lead SCS system in place, implanted by Dr. Espinoza in 2008. Had three years of good pain relief. Revision done on 04/04/12. Opioid Agreement: Signed on . Last Pain Panel/Urine Tox and Assessment: Pain Panel last done on 05/23/2017 and found to be appropriate medications. OARRS report: Reviewed, November 21, 2017 and appropriate for reported medication use. Physical Therapy/Home Exercise: HEP Cardiac: EGG complete W Interpretation. - 08/30/2017: QTC Calculation: 416 ms - 03/03/2016: QTC Calculation: 413 ms - 12/23/2014: QTC Calculation: 424 ms - 02/22/2013: QTC Calculation: 414 ms - 03/23/2012: QTC Calculated: 434 ms Imaging: - XR of the lumbar spine done on 05/05/2015 IMPRESSION: Negative - XR of the Thoracic spine done on 04/04/2012 IMPRESSION: Stimulator device as described. - IR Myelo Thoracic 03/24/2012 IMPRESSION: TECHNICALLY SUCCESSFUL INTRATHECAL ADMINISTRATION OF CONTRAST FOR THORACIC CT MYELOGRAM. PAST MEDICAL HISTORY Diagnosis Date - Back pain - PMH - PAST MEDICAL HISTORY OF hypokalemic periodic pyralysis PAST SURGICAL HISTORY Procedure Laterality Date - PAST SURGICAL HISTORY OF 11/13 lumbar surgery - PAST SURGICAL HISTORY OF 2008 Spinal cord stimulator Medtronic - [place] ANESTH,DX ARTHROSCOPIC PROC KNEE JOINT 2000, 2001 right torn meniscus x 2 - THUMB 2002 gamekeeper's thumb surg FAMILY HISTORY Problem Relation Age of Onset - Hypertension Father - Cancer Father basal cell - other (multiple sclerosis) Father also father's sister - Diabetes Maternal Grandfather - Heart Maternal Grandfather - Diabetes Paternal Grandfather - Heart Paternal Grandfather Social History Marital status: Spouse name: Years of education: 12 Number of children: 2 Occupational History Occupation Employer Comment employed Social History Main Topics Smoking status: Never Smoker Smokeless tobacco: Current User Types: Chew Alcohol use: No Drug use: No Sexual activity: Yes Partners with: Female 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 REVIEW OF SYSTEMS: GENERAL: No weight loss, malaise or fevers. HEENT: Negative for frequent or significant headaches NECK: Negative for lumps, goiter, and significant neck swelling RESPIRATORY: Negative for cough, wheezing or shortness of breath. CARDIOVASCULAR: Negative for chest pain or palpitations. GI: Negative for blood in stools or black stools or change in bowel habits, nausea, vomiting, diarrhea, constipation MUSCULOSKELETAL: see HPI SKIN: Negative for lesions, rash, and itching. PSYCH: Negative for sleep disturbance, mood disorder and recent psychosocial stressors. HEMATOLOGY/LYMPHOLOGY: Clotting disorder? NEURO: No history of syncope, paralysis, seizures or tremors OBJECTIVE: GENERAL: Well appearing, in no acute distress HEENT: Normocephalic, atraumatic. RESPIRATORY: Respirations are unlabored GI: Abdomen soft and non-tender. MUSCULOSKELETAL: No atrophy or tone abnormalities are noted. Decreased ROM noted in the right shoulder due to rotator cuff injury suffered at a fairly recent recreational event. NECK: No pain with neck flexion, extension, or lateral flexion. No obvious deformity or signs of trauma. BACK: Pain to palpation over the lumbar spine and paraspinous muscles Centered at the midline well healed surgical scar. Normal range of motion without pain reproduction. Negative bilateral straight leg raise. EXTREMITIES: Peripheral joint ROM is full and pain free without obvious instability or laxity in all four extremities. No deformities, edema, or skin discoloration. SKIN: Skin color, texture, turgor normal, no rashes or lesions PSYCH: Mood and affect is appropriate. Awake, alert, and oriented x 3 NEURO: Grossly intact GAIT: Steady without assist devices ASSESSMENT: Man Bravo is a 37 year old male with low back and bilateral leg pain who presents for medication refills as an established patient of Dr. Aceves. He was injured in 2006 when he fell off of a ladder at work onto a stack of [employer] and [employer] beans. He suffered a herniated disc. This was followed by a microdiscectomy which did no alleviate the pain. 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 He has a Medtronic paddle lead SCS system in place that was implanted by Dr. Espinoza in 2008. Patient had three years of good pain relief followed be a revision done on 04/04/12. HX RECALL: Patient's lower extremity pain is well controlled at this time. The low back pain is his most pressing concern. He has followed up with Dr. Miranda about doing a revision of the SCS. He is still awaiting a decision on moving forward with an an SCS trial at this time. He has several options at this time. One involves trialing a Nevros SCS system. Patient will have right rotator cuff repair on 11/30/2017 in [place], [place]. His post op pain will be managed by the surgeon. M96.1 Postlaminectomy syndrome, lumbar region M47.816 Lumbar spondylosis PLAN: 1) Continue current medication regimen as established by Dr. Aceves 2) Refilled Methadone 30mg BID for 2 months 3) Refilled Linzess for 2 months 4) Follow up with Dr. Espinoza/Dr. Miranda for SCS revision/ possible trial 5) Patient will have Right rotator cuff revision on 11/30/2017. His post op pain will be managed by the surgeon. 6) Counseled patient regarding the importance of activity modification, exercise and consistent sleep habits 7) RTC for medication refills in two months. The above plan and management options were discussed at length with patient. Patient is in agreement with the above and verbalized understanding. Saulo Núñez PA-C November 21, 2017 Referring Provider: ILAN ACEVES [[id number]] Allergies As of Date: 11/21/2017 Noted Allergy Reaction VICODIN (HYDROCODONE-ACETAMINOPHE*11/15/2011 4 - Hives Date Reviewed: 11/21/2017 Reviewed by: MAVIS Cesar - Fully Assessed Visit Diagnoses:Postlaminectomy syndrome, lumbar region [M96.1] Lumbar spondylosis [M47.816] Order(s):[START ON 12/31/2017] methadone (DOLOPHINE) 10 mg tabletTake 3 tablets by mouth twice daily for 30 days. Earliest Fill Date: 12/31/17Disp: 180 tabletRfl: 0 [START ON 12/01/2017] methadone (DOLOPHINE) 10 mg tabletTake 3 tablets by mouth twice daily for 30 days. Earliest Fill Date: 12/01/17Disp: 180 tabletRfl: 0 linaclotide (LINZESS) 290 mcg capTake 1 capsule by mouth once daily.Disp: 30 capsuleRfl: 1 Prescriptions as of 11/21/2017 Sig: METHADONE 10 MG TABLET Take 3 tablets by mouth twice* METHADONE 10 MG TABLET Take 3 tablets by mouth twice* LINACLOTIDE 290 MCG CAPSULE Take 1 capsule by mouth once * LEVOTHYROXINE 25 MCG TABLET Take 1 tablet by mouth once d* TESTOSTERONE CYPIONATE 200 MG* INJECT 0.5 ML IM ONCE WEEKLY SERTRALINE 100 MG TABLET Take 200 mg by mouth once genoveva* * K-DUR 20 MEQ TABLET,EXTENDED * Take two tablets three times * * AMILORIDE 5 MG TABLET Take one tablet once a day Problem List As Of Date 11/21/2017 Noted Resolved POSTLAMINECT SYND-LUMBAR [M96.1] INVALID FOR* ABNORMAL COAGULATION PROFILE [R79.1] INVALID FOR* Lumbar spondylosis [M47.816] INVALID FOR* Prescriptions ordered this encounter Disp Refills Start End METHADONE 10 MG TABLET 180 * 0 12/31/2017 01/30/2018 Class: Print RX Route: ORAL Sig: Take 3 tablets by mouth twice daily for 30 days. Earliest Fill Date: 12/31/17 METHADONE 10 MG TABLET 180 * 0 12/01/2017 12/31/2017 Class: Print RX Route: ORAL Sig: Take 3 tablets by mouth twice daily for 30 days. Earliest Fill Date: 12/01/17 LINACLOTIDE 290 MCG CAPSULE 30 c* 1 11/21/2017 Route: ORAL Sig: Take 1 capsule by mouth once daily. Medications Discontinued During This Encounter methadone (DOLOPHINE) 10 mg tablet 180 * 0 10/31/2017 11/21/2017 Class: Print RX Route: ORAL Sig: Take 3 tablets by mouth twice daily for 30 days. Earliest Fill Date: 10/31/17 Disc: Reason for discontinue is not on file. methadone (DOLOPHINE) 10 mg tablet 180 * 0 10/01/2017 11/21/2017 Class: Print RX Route: ORAL Sig: Take 3 tablets by mouth twice daily for 30 days. Earliest Fill Date: 10/01/17 Disc: Reason for discontinue is not on file. linaclotide (LINZESS) 290 mcg cap 30 c* 1 09/26/2017 11/21/2017 Route: ORAL Sig: Take 1 capsule by mouth once daily. Disc: Reason for discontinue is not on file. Follow-up and Disposition History Recorded Encounter Status:Closed by SAULO NÚÑEZ PA-C on 11/21/17 ARTHROGRAM SHOULDER Observed: 10/20/2017 Status: F Source: [place] 9:16 AM [facility] [place] REPOSITORY [facility] [address] [place] [id number] Arthrogram Shoulder MR#: [id number] Acct: [id number] Name: MAN BRAVO Rep #: [id number] : 1980 M 37 From: Primo Goff MD PCP: Sherri Patterson DO Status: REG CLI Study: Arthrogram Shoulder Date of Exam: 10/20/17 Exam# [id number] Ordering Dr: Byron Sanchez MD CLINICAL HISTORY: Male, 37 years old. Right shoulder pain. Limited range of motion. PROCEDURE: ARTHROGRAM - RIGHT SHOULDER CONSENT: The procedure as well as the benefits and possible complications including infection and bleeding were explained to the patient. Informed consent was obtained. FLUOROSCOPY TIME (if supplied): (0:48) minutes/seconds Injection Information: 10 cc of dilute Magnevist. Number of images obtained: 4 TECHNIQUE: (All elements of maximal sterile barrier technique followed, including US elements as applicable) The patient was in the supine position. The overlying skin was prepped and draped in the usual sterile fashion. Following local anesthetic application and under direct fluoroscopic guidance, a 22-gauge spinal needle was placed into the shoulder joint. 2 cc of Isovue- 300 was injected for confirmation. Following this, 10 cc of dilute Magnevist was injected. The patient tolerated the procedure well. A CT scan will follow. RAD/Arthrogram Shoulder IMPRESSION: Successful right shoulder arthrogram with injection of 10 cc of dilute Magnevist. Electronically Signed: Primo Goff MD at 10:39 EDT Tel [phone], Service support , CC: Sherri Patterson DO; Byron Sanchez MD End Trimmer: Signed EXTREMITY UPPER WITH Observed: 10/20/2017 Status: F Source: [place] 9:16 AM [facility] [place] REPOSITORY [facility] [address] [place] [address] Extremity Upper WITH Contrast MR#: [id number] Acct: [id number] Name: MAN BRAVO Rep #: [id number] : 1980 M 37 From: Primo Goff MD PCP: Sherri Patterson DO Status: REG CLI Study: Extremity Upper WITH Contrast Date of Exam: 10/20/17 Exam# [id number] Ordering Dr: Byron Sanchez MD STUDY: CT RIGHT SHOULDER REASON FOR EXAM: Male, 37 years old. Right shoulder pain. Decreased range of motion. RADIATION DOSAGE (If Supplied By Facility): CTDIvol = ( 41.06 ) mGy, DLP = ( 874.63 ) mGycm TECHNIQUE: The patient was scanned in a multi detector CT scanner. High resolution transaxial imaging was performed following intra-articular administration of dilute contrast material. Sagittal and coronal images were reconstructed. Individualized dose optimization techniques were used for this CT. COMPARISON: Comparison is made with prior arthrogram done earlier in the day. FINDINGS: Normal glenohumeral articulation. Normal glenoid rim, neck and visualized scapula. Normal humeral head, neck and tuberosities. Normal coracoid process. Normal visualized lateral clavicle. Normal acromioclavicular articulation. There is a Type II morphology (curved), with a neutral orientation. Normal visualized muscles and soft tissue structures. CT/Extremity Upper WITH Contrast IMPRESSION: Normal CT of the shoulder. Electronically Signed: Primo Goff MD at 10:56 EDT Tel [phone], Service support , CC: Sherri Patterson DO; Byron Sanchez MD End Trimmer: Signed PROGRESS Observed: 09/26/2017 Status: COMPLETED Source: [place] 11:37 AM [facility] REPOSITORY HNO ID: [id number] Author: MAVIS Cesar Service: (none) Author Type: Physician Esthetics Instructor Type: Progress Notes Filed: 09/27/2017 8:31 AM Note Text: Chronic Pain Management Follow-Up Evaluation Date: September 26, 2017 Chief Complaint: Low back pain SUBJECTIVE: Man Bravo presents to [facility] Department for a followup appointment for medication refills for low back pain as an established patient of Dr. Aceves. He was injured in 2006 when he fell off of a ladder at work onto a stack of [employer] beans. He suffered a herniated disc. This was followed by a microdiscectomy which did no alleviate the pain. 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 Plan at last visit 07/27/2017: -Continue current medication regimen -Refilled Methadone 30mg BID for 2 months -Refilled Linzess for 2 months -EKG ordered to monitor QTC while on Methadone- to be reviewed next OV -Follow up with Dr. Espinoza/Dr. Miranda as scheduled. Since the last visit, Man Bravo states the pain has been stable. Current pain intensity is 5 on a scale of 0-10. Pain Location: lower back that mainly radiates to the left leg. The low back pain is the greatest pain. The SCS mainly controls the leg pain. Duration: Since 2006. Pain character: pressure, aching, sharp Exacerbating factors: Activity Alleviating factors: medications, SCS Pain Medications: - Opioids: Methadone 30 mg BID, Percocet in the past. - NSAIDs: None - Anti-Depressants: Zoloft 100 mg - Anti-Convulsants: None - Others: Linzess Adverse Effects to Medications: none Pain Procedures: Medtronic paddle lead SCS system in place, implanted by Dr. Espinoza in 2008. Had three years of good pain relief. Revision done on 04/04/12. Opioid Agreement: Signed on . Last Pain Panel/Urine Tox and Assessment: Pain Panel last done on 05/23/2017 and found to be appropriate medications. OARRS report: Reviewed, September 26, 2017 and appropriate for reported medication use. Physical Therapy/Home Exercise: HEP Cardiac: EGG complete W Interpretation. - 08/30/2017: QTC Calculation: 416 ms - 03/03/2016: QTC Calculation: 413 ms - 12/23/2014: QTC Calculation: 424 ms - 02/22/2013: QTC Calculation: 414 ms - 03/23/2012: QTC Calculated: 434 ms Imaging: - XR of the lumbar spine done on 05/04/2017 IMPRESSION: Negative - XR of the Thoracic spine done on 04/04/2012 IMPRESSION: Stimulator device as described. - IR Myelo Thoracic 03/24/2012 IMPRESSION: TECHNICALLY SUCCESSFUL INTRATHECAL ADMINISTRATION OF CONTRAST FOR THORACIC CT MYELOGRAM. PAST MEDICAL HISTORY Diagnosis Date - Back pain - PMH - PAST MEDICAL HISTORY OF hypokalemic periodic pyralysis PAST SURGICAL HISTORY Procedure Laterality Date - PAST SURGICAL HISTORY OF 11/13 lumbar surgery - PAST SURGICAL HISTORY OF 2009 Spinal cord stimulator Medtronic - [place] ANESTH,DX ARTHROSCOPIC PROC KNEE JOINT 2000, 2001 right torn meniscus x 2 - THUMB 2002 gamekeeper's thumb surg FAMILY HISTORY Problem Relation Age of Onset - Hypertension Father - Cancer Father basal cell - other (multiple sclerosis) Father also father's sister - Diabetes Maternal Grandfather - Heart Maternal Grandfather - Diabetes Paternal Grandfather - Heart Paternal Grandfather Social History Marital status: Spouse name: Years of education: 12 Number of children: 2 Occupational History Occupation Employer Comment employed Social History Main Topics Smoking status: Never Smoker Smokeless tobacco: Current User Types: Chew Alcohol use: No Drug use: No Sexual activity: Yes Partners with: Female 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 REVIEW OF SYSTEMS: GENERAL: No weight loss, malaise or fevers. HEENT: Negative for frequent or significant headaches NECK: Negative for lumps, goiter, and significant neck swelling RESPIRATORY: Negative for cough, wheezing or shortness of breath. CARDIOVASCULAR: Negative for chest pain or palpitations. GI: Negative for blood in stools or black stools or change in bowel habits, nausea, vomiting, diarrhea, constipation MUSCULOSKELETAL: see HPI SKIN: Negative for lesions, rash, and itching. PSYCH: Negative for sleep disturbance, mood disorder and recent psychosocial stressors. HEMATOLOGY/LYMPHOLOGY: Clotting disorder? NEURO: No history of syncope, paralysis, seizures or tremors OBJECTIVE: GENERAL: Well appearing, in no acute distress HEENT: Normocephalic, atraumatic. RESPIRATORY: Respirations are unlabored GI: Abdomen soft and non-tender. MUSCULOSKELETAL: No atrophy or tone abnormalities are noted. Decreased ROM noted in the right shoulder due to recent injury during a recreational event. NECK: No pain with neck flexion, extension, or lateral flexion. No obvious deformity or signs of trauma. BACK: Pain to palpation over the lumbar spine and paraspinous muscles Centered at the midline well healed surgical scar. Normal range of motion without pain reproduction. Negative bilateral straight leg raise. EXTREMITIES: Peripheral joint ROM is full and pain free without obvious instability or laxity in all four extremities. No deformities, edema, or skin discoloration. SKIN: Skin color, texture, turgor normal, no rashes or lesions PSYCH: Mood and affect is appropriate. Awake, alert, and oriented x 3 NEURO: Grossly intact GAIT: Steady without assist devices ASSESSMENT: Man Bravo is a 37 year old male with low back and bilateral leg pain who presents for medication refills as an established patient of Dr. Aceves. He was injured in 2006 when he fell off of a ladder at work onto a stack of barn beans. He suffered a herniated disc. This was followed by a microdiscectomy which did no alleviate the pain. 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 He has a [employer] paddle lead SCS system in place that was implanted by Dr. Espinoza in 2008. Patient had three years of good pain relief followed be a revision done on 04/04/12. Patient's lower extremity pain is well controlled at this time. The low back pain is his most pressing concern. He has followed up with Dr. Miranda about doing a revision of the SCS. He has several options at this time. One involves trialing a Nevros SCS system. The options are still being weighed at this time. Patient low back pain is constant and steady. He is able to be socially active and continue working with his current pain management regimen. M96.1 Postlaminectomy syndrome, lumbar region M47.816 Lumbar spondylosis PLAN: 1) Continue current medication regimen as established by Dr. Aceves 2) Refilled Methadone 30mg BID for 2 months 3) Refilled Linzess for 2 months 4) Follow up with Dr. Espinoza/Dr. Miranda as scheduled 5) Counseled patient regarding the importance of activity modification, exercise and consistent sleep habits 6) RTC for medication refills in two months. The above plan and management options were discussed at length with patient. Patient is in agreement with the above and verbalized understanding. Saulo Núñez PA-C September 26, 2017 CNOV Observed: 09/26/2017 Status: COMPLETED Source: [place] 11:30 AM [facility] REPOSITORY Office Visit (PAINMN) MAN BRAVO ([id number]) 1980 M Date Time Provider Department 09/26/17 11:30 AM SAULO NÚÑEZ During your visit today, we recorded the following information about you: Saulo Núñez PA-C, MAVIS 09/27/2017 8:31 AM Signed Chronic Pain Management Follow-Up Evaluation Date: September 26, 2017 Chief Complaint: Low back pain SUBJECTIVE: Man Bravo presents to [facility] Department for a followup appointment for medication refills for low back pain as an established patient of Dr. Aceves. He was injured in 2006 when he fell off of a ladder at work onto a stack of barn beans. He suffered a herniated disc. This was followed by a microdiscectomy which did no alleviate the pain. 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 Plan at last visit 07/27/2017: -Continue current medication regimen -Refilled Methadone 30mg BID for 2 months -Refilled Linzess for 2 months -EKG ordered to monitor QTC while on Methadone- to be reviewed next OV -Follow up with Dr. Espinoza/Dr. Miranda as scheduled. Since the last visit, Man Bravo states the pain has been stable. Current pain intensity is 5 on a scale of 0-10. Pain Location: lower back that mainly radiates to the left leg. The low back pain is the greatest pain. The SCS mainly controls the leg pain. Duration: Since 2006. Pain character: pressure, aching, sharp Exacerbating factors: Activity Alleviating factors: medications, SCS Pain Medications: - Opioids: Methadone 30 mg BID, Percocet in the past. - NSAIDs: None - Anti-Depressants: Zoloft 100 mg - Anti-Convulsants: None - Others: Linzess Adverse Effects to Medications: none Pain Procedures: Medtronic paddle lead SCS system in place, implanted by Dr. Espinoza in 2008. Had three years of good pain relief. Revision done on 04/04/12. Opioid Agreement: Signed on . Last Pain Panel/Urine Tox and Assessment: Pain Panel last done on 05/23/2017 and found to be appropriate medications. OARRS report: Reviewed, September 26, 2017 and appropriate for reported medication use. Physical Therapy/Home Exercise: HEP Cardiac: EGG complete W Interpretation. - 08/30/2017: QTC Calculation: 416 ms - 03/03/2016: QTC Calculation: 413 ms - 12/23/2014: QTC Calculation: 424 ms - 02/22/2013: QTC Calculation: 414 ms - 03/23/2012: QTC Calculated: 434 ms Imaging: - XR of the lumbar spine done on 05/04/2017 IMPRESSION: Negative - XR of the Thoracic spine done on 04/04/2012 IMPRESSION: Stimulator device as described. - IR Myelo Thoracic 03/24/2012 IMPRESSION: TECHNICALLY SUCCESSFUL INTRATHECAL ADMINISTRATION OF CONTRAST FOR THORACIC CT MYELOGRAM. PAST MEDICAL HISTORY Diagnosis Date - Back pain - PMH - PAST MEDICAL HISTORY OF hypokalemic periodic pyralysis PAST SURGICAL HISTORY Procedure Laterality Date - PAST SURGICAL HISTORY OF 11/13 lumbar surgery - PAST SURGICAL HISTORY OF 2009 Spinal cord stimulator Medtronic - [place] ANESTH,DX ARTHROSCOPIC PROC KNEE JOINT 2000, 2001 right torn meniscus x 2 - THUMB 2002 gamekeeper's thumb surg FAMILY HISTORY Problem Relation Age of Onset - Hypertension Father - Cancer Father basal cell - other (multiple sclerosis) Father also father's sister - Diabetes Maternal Grandfather - Heart Maternal Grandfather - Diabetes Paternal Grandfather - Heart Paternal Grandfather Social History Marital status: Spouse name: Years of education: 12 Number of children: 2 Occupational History Occupation Employer Comment employed Social History Main Topics Smoking status: Never Smoker Smokeless tobacco: Current User Types: Chew Alcohol use: No Drug use: No Sexual activity: Yes Partners with: Female 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 REVIEW OF SYSTEMS: GENERAL: No weight loss, malaise or fevers. HEENT: Negative for frequent or significant headaches NECK: Negative for lumps, goiter, and significant neck swelling RESPIRATORY: Negative for cough, wheezing or shortness of breath. CARDIOVASCULAR: Negative for chest pain or palpitations. GI: Negative for blood in stools or black stools or change in bowel habits, nausea, vomiting, diarrhea, constipation MUSCULOSKELETAL: see HPI SKIN: Negative for lesions, rash, and itching. PSYCH: Negative for sleep disturbance, mood disorder and recent psychosocial stressors. HEMATOLOGY/LYMPHOLOGY: Clotting disorder? NEURO: No history of syncope, paralysis, seizures or tremors OBJECTIVE: GENERAL: Well appearing, in no acute distress HEENT: Normocephalic, atraumatic. RESPIRATORY: Respirations are unlabored GI: Abdomen soft and non-tender. MUSCULOSKELETAL: No atrophy or tone abnormalities are noted. Decreased ROM noted in the right shoulder due to recent injury during a recreational event. NECK: No pain with neck flexion, extension, or lateral flexion. No obvious deformity or signs of trauma. BACK: Pain to palpation over the lumbar spine and paraspinous muscles Centered at the midline well healed surgical scar. Normal range of motion without pain reproduction. Negative bilateral straight leg raise. EXTREMITIES: Peripheral joint ROM is full and pain free without obvious instability or laxity in all four extremities. No deformities, edema, or skin discoloration. SKIN: Skin color, texture, turgor normal, no rashes or lesions PSYCH: Mood and affect is appropriate. Awake, alert, and oriented x 3 NEURO: Grossly intact GAIT: Steady without assist devices ASSESSMENT: Man Bravo is a 37 year old male with low back and bilateral leg pain who presents for medication refills as an established patient of Dr. Aceves. He was injured in 2006 when he fell off of a ladder at work onto a stack of [employer] beans. He suffered a herniated disc. This was followed by a microdiscectomy which did no alleviate the pain. 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 He has a Medtronic paddle lead SCS system in place that was implanted by Dr. Espinoza in 2008. Patient had three years of good pain relief followed be a revision done on 04/04/12. Patient's lower extremity pain is well controlled at this time. The low back pain is his most pressing concern. He has followed up with Dr. Miranda about doing a revision of the SCS. He has several options at this time. One involves trialing a Nevros SCS system. The options are still being weighed at this time. Patient low back pain is constant and steady. He is able to be socially active and continue working with his current pain management regimen. M96.1 Postlaminectomy syndrome, lumbar region M47.816 Lumbar spondylosis PLAN: 1) Continue current medication regimen as established by Dr. Aceves 2) Refilled Methadone 30mg BID for 2 months 3) Refilled Linzess for 2 months 4) Follow up with Dr. Espinoza/Dr. Miranda as scheduled 5) Counseled patient regarding the importance of activity modification, exercise and consistent sleep habits 6) RTC for medication refills in two months. The above plan and management options were discussed at length with patient. Patient is in agreement with the above and verbalized understanding. Saulo Núñez PA-C September 26, 2017 Referring Provider: ILAN ACEVES [[id number]] Allergies As of Date: 09/26/2017 Noted Allergy Reaction VICODIN (HYDROCODONE-ACETAMINOPHE*11/15/2011 4 - Hives Date Reviewed: 09/26/2017 Reviewed by: MAVIS Cesar - Fully Assessed Visit Diagnoses:Postlaminectomy syndrome, lumbar region [M96.1] Lumbar spondylosis [M47.816] Order(s):linaclotide (LINZESS) 290 mcg capTake 1 capsule by mouth once daily.Disp: 30 capsuleRfl: 1 [START ON 10/31/2017] methadone (DOLOPHINE) 10 mg tabletTake 3 tablets by mouth twice daily for 30 days. Earliest Fill Date: 10/31/17Disp: 180 tabletRfl: 0 [START ON 10/01/2017] methadone (DOLOPHINE) 10 mg tabletTake 3 tablets by mouth twice daily for 30 days. Earliest Fill Date: 10/01/17Disp: 180 tabletRfl: 0 Prescriptions as of 09/26/2017 Sig: METHADONE 10 MG TABLET Take 3 tablets by mouth twice* LEVOTHYROXINE 25 MCG TABLET TAKE 1 TABLET BY MOUTH ONCE D* TESTOSTERONE CYPIONATE 200 MG* INJECT 0.5 ML IM ONCE WEEKLY SERTRALINE 100 MG TABLET Take 200 mg by mouth once genoveva* * K-DUR 20 MEQ TABLET,EXTENDED * Take two tablets three times * * AMILORIDE 5 MG TABLET Take one tablet once a day LINACLOTIDE 290 MCG CAPSULE Take 1 capsule by mouth once * METHADONE 10 MG TABLET Take 3 tablets by mouth twice* Problem List As Of Date 09/26/2017 Noted Resolved POSTLAMINECT SYND-LUMBAR [M96.1] INVALID FOR* ABNORMAL COAGULATION PROFILE [R79.1] INVALID FOR* Lumbar spondylosis [M47.816] INVALID FOR* Prescriptions ordered this encounter Disp Refills Start End LINACLOTIDE 290 MCG CAPSULE 30 c* 1 09/26/2017 Route: ORAL Sig: Take 1 capsule by mouth once daily. METHADONE 10 MG TABLET 180 * 0 10/31/2017 11/30/2017 Class: Print RX Route: ORAL Sig: Take 3 tablets by mouth twice daily for 30 days. Earliest Fill Date: 10/31/17 METHADONE 10 MG TABLET 180 * 0 10/01/2017 10/31/2017 Class: Print RX Route: ORAL Sig: Take 3 tablets by mouth twice daily for 30 days. Earliest Fill Date: 10/01/17 Medications Discontinued During This Encounter linaclotide (LINZESS) 290 mcg cap 30 c* 1 07/27/2017 09/26/2017 Route: ORAL Sig: Take 1 capsule by mouth once daily. Disc: Reason for discontinue is not on file. methadone (DOLOPHINE) 10 mg tablet 180 * 0 08/01/2017 09/26/2017 Class: Print RX Route: ORAL Sig: Take 3 tablets by mouth twice daily for 30 days. Earliest Fill Date: 08/01/17 Disc: Duplicate Entry methadone (DOLOPHINE) 10 mg tablet 180 * 0 08/31/2017 09/26/2017 Class: Print RX Route: ORAL Sig: Take 3 tablets by mouth twice daily for 30 days. Earliest Fill Date: 08/31/17 Disc: Duplicate Entry Follow-up and Disposition History Recorded Encounter Status:Closed by SAULO NÚÑEZ PA-C on 09/27/17 PROGRESS Observed: 08/30/2017 Status: COMPLETED Source: [place] 10:34 AM [facility] REPOSITORY HNO ID: [id number] Author: Gayatri Brooke LPN Service: (none) Author Type: (none) Type: Progress Notes Filed: 08/30/2017 10:38 AM Note Text: Patient presents for EKG per Dr Aceves. Denies any problems at this time. Does report that he has a back stimulator in place that may be causing some interference with monitoring. Gayatri Brooke LPN ECG COMPLETE W Observed: 08/30/2017 Status: F Source: [place]PRE[place] 10:31 AM [facility] REPOSITORY NAME : MAN BRAVO PID : [id number] : 1980 Gender : Male Race : ORD : [id number] Procedure Date : Aug 30 2017 10:31:20 Edit Date : Aug 31 2017 15:56:58 Diagnosis:NORMAL SINUS RHYTHM INFERIOR MYOCARDIAL INFARCTION , AGE UNDETERMINED ABNORMAL ECG Confirmed by MICHAEL PERRY D.O. ([id number]) on 08/31/2017 3:56:46 PM Ventricular Rate : 68 BPM Atrial Rate : 68 BPM P-R Interval : 168 ms QRS Duration : 88 ms Q-T Interval : 392 ms QTC Calculation(Bezet) : 416 ms P Wray : 50 degrees R Wray : 14 degrees T Wray : 27 degrees Test Reason : Location : [facility] : [facility] Overread By : MICHAEL PERRY D.O. Edited By : MICHAEL PERRY D.O. Referred By : ILAN ACEVES Acquired by : GAYATRI BROOKE CNNURSE Observed: 08/30/2017 Status: COMPLETED Source: [place] 10:15 AM [facility] REPOSITORY Nurse Visit (FAMPWS) MAN BRAVO ([id number]) 1980 M Date Time Provider Department 08/30/17 10:15 AM [place] NURSE [facility]AMPWS During your visit today, we recorded the following information about you: Gayatri Brooke LPN 08/30/2017 10:38 AM Signed Patient presents for EKG per Dr Aceves. Denies any problems at this time. Does report that he has a back stimulator in place that may be causing some interference with monitoring. Gayatri Brooke LPN Referring Provider: SELF [[id number]] Allergies As of Date: 08/30/2017 Noted Allergy Reaction VICODIN (HYDROCODONE-ACETAMINOPHE*11/15/2011 4 - Hives Date Reviewed: 07/27/2017 Reviewed by: Maritza Kumar RN - Fully Assessed Reason for Visit: EKG [793] Primary Visit Diagnosis:Chronic, continuous use of opioids [F11.90] Other Visit Diagnosis:Uncomplicated opioid dependence (HCC) [F11.20] Prescriptions as of 08/30/2017 Sig: LINACLOTIDE 290 MCG CAPSULE Take 1 capsule by mouth once * METHADONE 10 MG TABLET Take 3 tablets by mouth twice* METHADONE 10 MG TABLET Take 3 tablets by mouth twice* LEVOTHYROXINE 25 MCG TABLET TAKE 1 TABLET BY MOUTH ONCE D* TESTOSTERONE CYPIONATE 200 MG* INJECT 0.5 ML IM ONCE WEEKLY SERTRALINE 100 MG TABLET Take 200 mg by mouth once genoveva* * K-DUR 20 MEQ TABLET,EXTENDED * Take two tablets three times * * AMILORIDE 5 MG TABLET Take one tablet once a day Problem List As Of Date 08/30/2017 Noted Resolved POSTLAMINECT SYND-LUMBAR [M96.1] INVALID FOR* ABNORMAL COAGULATION PROFILE [R79.1] INVALID FOR* Lumbar spondylosis [M47.816] INVALID FOR* Encounter Status:Closed by GAYATRI BROOKE LPN on 08/30/17 PROGRESS Observed: 07/27/2017 Status: COMPLETED Source: [place] 11:20 AM [facility] REPOSITORY O ID: [id number] Author: Ilan Aceves Service: (none) Author Type: Physician Type: Progress Notes Filed: 08/03/2017 2:23 PM Note Text: SUBJECTIVE: Man Bravo presents to [facility] for a follow-up appointment for chronic low back pain and bilateral lower extremity pain secondary to post laminectomy syndrome for which he has a Medtronic paddle lead SCS system in place. The plan after his last visit was: PLAN: ? -Continue current medication regimen as established by Dr. Aceves -Refilled Methadone 30mg BID for 2 months -Refilled Linzess for 2 months -EKG ordered to monitor QTC while on Methadone- to be reviewed next OV - not done -Urine pain panel done today in office, will be reviewed at next office visit - consistent with prescribed Methadone -Follow up with Dr. Espinoza/Dr. Miranda as scheduled. -RTC in [address] Aceves for annual office visit/med refill Since his last visit he has met with and they have discussed adding further percutaneous leads to cover his low back pain. He is here today for refills of his Methadone and Linzess. Pain Location: lower back and both legs Duration: years. Pain character: pressure Exacerbating factors: sitting, getting up from sitting and walking Alleviating factors:medications Pain Medications: ? - Opioids: Methadone 30mg BID-current, percocet in the past - NSAIDs: none - Anti-Depressants: none - Anti-Convulsants: none - Others: lidocaine cream, Linzess Opioid agreement: No OARRS report: Reviewed: The patient's OARRS report was reviewed and is consistent with the reported medication use. Pain medications reviewed: Yes Pain Procedures: SCS 2008 with revision in 2011 Physical Therapy/Home Exercise: Yes Imaging: IMPRESSION: Negative ? Results-Findings * * *Final Report* * * ? DATE OF EXAM: May 05 2015 11:55AM ? MDX ? 1446 ?- ?XR LUMBAR AP/LAT/OBL/L5S1 ?/ PROCEDURE REASON: POST LAMINECT SYND LUMBAR m96.1 * * * * Physician Interpretation * * * * RESULT: PROCEDURE: ?Lumbar spine INDICATION: ?POST LAMINECTOMY SYND LUMBAR m96.1. TECHNIQUE: ?XR LUMBAR AP/LAT/OBL/L5S1 COMPARISON: ?04/04/2012 and 03/23/2012 FINDINGS: ? There is normal alignment without fracture or subluxation.No significant disc space narrowing is seen. ?No pars defects or significant facet arthrosis is seen. ?Sacroiliac joints are unremarkable. ?Spinal cord stimulators extend into the thoracic region. REVIEW OF SYSTEMS: GENERAL: No weight loss, malaise or fevers. HEENT: Negative for frequent or significant headaches. NECK: Negative for lumps, goiter, pain and significant neck swelling. RESPIRATORY: Negative for cough, wheezing or shortness of breath. CARDIOVASCULAR: Negative for chest pain, leg swelling or palpitations. GI: Negative for abdominal discomfort, blood in stools or black stools or change in bowel habits. MUSCULOSKELETAL:+ back pain SKIN: Negative for lesions, rash, and itching. PSYCH: Negative for sleep disturbance, mood disorder and recent psychosocial stressors. HEMATOLOGY/LYMPHOLOGY: Negative for prolonged bleeding, bruising easily or swollen nodes. NEURO: No history of headaches, syncope, paralysis, seizures or tremors. All other reviewed and negative other than HPI. Past Medical History: PAST MEDICAL HISTORY Diagnosis Date - Back pain - PMH - PAST MEDICAL HISTORY OF hypokalemic periodic pyralysis Past Surgical History: PAST SURGICAL HISTORY Procedure Laterality Date - PAST SURGICAL HISTORY OF 11/13 lumbar surgery - PAST SURGICAL HISTORY OF 2009 Spinal cord stimulator Medtronic - [place] ANESTH,DX ARTHROSCOPIC PROC KNEE JOINT 2000, 2001 right torn meniscus x 2 - THUMB 2003 gamekeeper's thumb surg Family History: FAMILY HISTORY Problem Relation Age of Onset - Hypertension Father - Cancer Father basal cell - multiple sclerosis [OTHER] Father also father's sister - Diabetes Maternal Grandfather - Heart Maternal Grandfather - Diabetes Paternal Grandfather - Heart Paternal Grandfather Social History: Social History Marital status: Spouse name: Years of education: 12 Number of children: 2 Occupational History Occupation Employer Comment employed Social History Main Topics Smoking status: Never Smoker Smokeless tobacco: Current User Types: Chew Alcohol use: No Drug use: No Sexual activity: Yes Partners with: Female 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 OBJECTIVE: There were no vitals taken for this visit. PHYSICAL EXAMINATION: General appearance: Well appearing, in no acute distress, alert. Psych: Mood and affect appropriate. Skin: Skin color, texture, turgor normal, no rashes or lesions. Head/face: Atraumatic, normocephalic. Neck: No pain to palpation over the cervical paraspinous muscles. Spurling Negative. No pain with neck flexion, extension, or lateral flexion. GI: Abdomen soft and non-tender. Back: Straight leg raising in the sitting and supine positions is negative to radicular pain. + pain on palpation of lower back over surgical incision. . Normal range of motion without pain reproduction. Extremities: Peripheral joint ROM is full and pain free without obvious instability or laxity in all four extremities. No deformities, edema, or skin discoloration. Good capillary refill. Musculoskeletal: . Bilateral upper and lower extremity strength is normal and symmetric. No atrophy or tone abnormalities are noted. Neuro: Bilateral upper and lower extremity coordination and muscle stretch reflexes are physiologic and symmetric. Plantar response are downgoing. No loss of sensation is noted. Gait: normal. ASSESSMENT: 36 year old male with chronic low back pain and bilateral lower extremity pain secondary to post laminectomy syndrome. He currently has a Medtronic paddle lead SCS system in place, implanted by Dr. Espinoza in 2008, which has worked well for his bilateral lower extremity pain; however, he still has midline low back pain. He recently had a visit with Dr. Miranda to explore different options such as a high frequency Philip stimulator. He is on methadone 30mg BID. (M47.816) Lumbar spondylosis (primary encounter diagnosis) (M96.1) Postlaminectomy syndrome, lumbar region (F11.90) Chronic, continuous use of opioids (F11.20) Uncomplicated opioid dependence (HCC) PLAN: -Continue current medication regimen -Refilled Methadone 30mg BID for 2 months -Refilled Linzess for 2 months -EKG ordered to monitor QTC while on Methadone- to be reviewed next OV -Follow up with Dr. Espinoza/Dr. Miranda as scheduled. The above plan and management options were discussed at length with patient. Patient is in agreement with the above and verbalized understanding. Jakob Bee, July 27, 2017 Staff Note I was physically present during the bettencourt portions of the Service. I confirmed the bettencourt findings and directed the treatment plans in decision making. Ilan Aceves MD, PhD CNOV Observed: 07/27/2017 Status: COMPLETED Source: [place] 11:10 AM [facility] REPOS[facility] Office Visit (PAINMN) MAN BRAVO ([id number]) 1980 M Date Time Provider Department 07/27/17 11:10 AM ILAN ACEVES PAINMN During your visit today, we recorded the following information about you: Pulse Respiration Blood pressure Weight 73/minute 18/minute 134/79 106.6 kg Height 1.829 m Ilan Aceves MD 08/03/2017 2:23 PM Signed SUBJECTIVE: Man Bravo presents to [facility] for a follow-up appointment for chronic low back pain and bilateral lower extremity pain secondary to post laminectomy syndrome for which he has a Medtronic paddle lead SCS system in place. The plan after his last visit was: PLAN: ? -Continue current medication regimen as established by Dr. Aceves -Refilled Methadone 30mg BID for 2 months -Refilled Linzess for 2 months -EKG ordered to monitor QTC while on Methadone- to be reviewed next OV - not done -Urine pain panel done today in office, will be reviewed at next office visit - consistent with prescribed Methadone -Follow up with Dr. Espinoza/Dr. Miranda as scheduled. -RTC in [address] Aceves for annual office visit/med refill Since his last visit he has met with and they have discussed adding further percutaneous leads to cover his low back pain. He is here today for refills of his Methadone and Linzess. Pain Location: lower back and both legs Duration: years. Pain character: pressure Exacerbating factors: sitting, getting up from sitting and walking Alleviating factors:medications Pain Medications: ? - Opioids: Methadone 30mg BID-current, percocet in the past - NSAIDs: none - Anti-Depressants: none - Anti-Convulsants: none - Others: lidocaine cream, Linzess Opioid agreement: No OARRS report: Reviewed: The patient's OARRS report was reviewed and is consistent with the reported medication use. Pain medications reviewed: Yes Pain Procedures: SCS 2008 with revision in 2011 Physical Therapy/Home Exercise: Yes Imaging: IMPRESSION: Negative ? Results-Findings * * *Final Report* * * ? DATE OF EXAM: May 05 2015 11:55AM ? MDX ? 1446 ?- ?XR LUMBAR AP/LAT/OBL/L5S1 ?/ PROCEDURE REASON: POST LAMINECT SYND LUMBAR m96.1 * * * * Physician Interpretation * * * * RESULT: PROCEDURE: ?Lumbar spine INDICATION: ?POST LAMINECTOMY SYND LUMBAR m96.1. TECHNIQUE: ?XR LUMBAR AP/LAT/OBL/L5S1 COMPARISON: ?04/04/2012 and 03/23/2012 FINDINGS: ? There is normal alignment without fracture or subluxation.No significant disc space narrowing is seen. ?No pars defects or significant facet arthrosis is seen. ?Sacroiliac joints are unremarkable. ?Spinal cord stimulators extend into the thoracic region. REVIEW OF SYSTEMS: GENERAL: No weight loss, malaise or fevers. HEENT: Negative for frequent or significant headaches. NECK: Negative for lumps, goiter, pain and significant neck swelling. RESPIRATORY: Negative for cough, wheezing or shortness of breath. CARDIOVASCULAR: Negative for chest pain, leg swelling or palpitations. GI: Negative for abdominal discomfort, blood in stools or black stools or change in bowel habits. MUSCULOSKELETAL:+ back pain SKIN: Negative for lesions, rash, and itching. PSYCH: Negative for sleep disturbance, mood disorder and recent psychosocial stressors. HEMATOLOGY/LYMPHOLOGY: Negative for prolonged bleeding, bruising easily or swollen nodes. NEURO: No history of headaches, syncope, paralysis, seizures or tremors. All other reviewed and negative other than HPI. Past Medical History: PAST MEDICAL HISTORY Diagnosis Date - Back pain - PMH - PAST MEDICAL HISTORY OF hypokalemic periodic pyralysis Past Surgical History: PAST SURGICAL HISTORY Procedure Laterality Date - PAST SURGICAL HISTORY OF 11/13 lumbar surgery - PAST SURGICAL HISTORY OF 2008 Spinal cord stimulator [employer]onic - [place] ANESTH,DX ARTHROSCOPIC PROC KNEE JOINT 2000, 2001 right torn meniscus x 2 - THUMB 2003 gamekeeper's thumb surg Family History: FAMILY HISTORY Problem Relation Age of Onset - Hypertension Father - Cancer Father basal cell - multiple sclerosis [OTHER] Father also father's sister - Diabetes Maternal Grandfather - Heart Maternal Grandfather - Diabetes Paternal Grandfather - Heart Paternal Grandfather Social History: Social History Marital status: Spouse name: Years of education: 12 Number of children: 2 Occupational History Occupation Employer Comment employed Social History Main Topics Smoking status: Never Smoker Smokeless tobacco: Current User Types: Chew Alcohol use: No Drug use: No Sexual activity: Yes Partners with: Female 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 OBJECTIVE: There were no vitals taken for this visit. PHYSICAL EXAMINATION: General appearance: Well appearing, in no acute distress, alert. Psych: Mood and affect appropriate. Skin: Skin color, texture, turgor normal, no rashes or lesions. Head/face: Atraumatic, normocephalic. Neck: No pain to palpation over the cervical paraspinous muscles. Spurling Negative. No pain with neck flexion, extension, or lateral flexion. GI: Abdomen soft and non-tender. Back: Straight leg raising in the sitting and supine positions is negative to radicular pain. + pain on palpation of lower back over surgical incision. . Normal range of motion without pain reproduction. Extremities: Peripheral joint ROM is full and pain free without obvious instability or laxity in all four extremities. No deformities, edema, or skin discoloration. Good capillary refill. Musculoskeletal: . Bilateral upper and lower extremity strength is normal and symmetric. No atrophy or tone abnormalities are noted. Neuro: Bilateral upper and lower extremity coordination and muscle stretch reflexes are physiologic and symmetric. Plantar response are downgoing. No loss of sensation is noted. Gait: normal. ASSESSMENT: 36 year old male with chronic low back pain and bilateral lower extremity pain secondary to post laminectomy syndrome. He currently has a Medtronic paddle lead SCS system in place, implanted by Dr. Espinoza in 2008, which has worked well for his bilateral lower extremity pain; however, he still has midline low back pain. He recently had a visit with Dr. Miranda to explore different options such as a high frequency Philip stimulator. He is on methadone 30mg BID. (M47.816) Lumbar spondylosis (primary encounter diagnosis) (M96.1) Postlaminectomy syndrome, lumbar region (F11.90) Chronic, continuous use of opioids (F11.20) Uncomplicated opioid dependence (HCC) PLAN: -Continue current medication regimen -Refilled Methadone 30mg BID for 2 months -Refilled Linzess for 2 months -EKG ordered to monitor QTC while on Methadone- to be reviewed next OV -Follow up with Dr. Espinoza/Dr. Miranda as scheduled. The above plan and management options were discussed at length with patient. Patient is in agreement with the above and verbalized understanding. Jakob Bee, July 27, 2017 Staff Note I was physically present during the bettencourt portions of the Service. I confirmed the bettencourt findings and directed the treatment plans in decision making. Ilan Aceves MD, PhD Referring Provider: ILAN ACEVES [[id number]] Allergies As of Date: 07/27/2017 Noted Allergy Reaction VICODIN (HYDROCODONE-ACETAMINOPHE*11/15/2011 4 - Hives Date Reviewed: 07/27/2017 Reviewed by: Maritza Kumar RN - Fully Assessed Reason for Visit: Establish Care [42] Medication Update [3156] Primary Visit Diagnosis:Lumbar spondylosis [M47.816] Other Visit Diagnoses:Postlaminectomy syndrome, lumbar region [M96.1] Chronic, continuous use of opioids [F11.90] Uncomplicated opioid dependence (HCC) [F11.20] Order(s):linaclotide (LINZESS) 290 mcg capTake 1 capsule by mouth once daily.Disp: 30 capsuleRfl: 1 ECG COMPLETE W INTERPRETATION [ECG01] Order #: [id number] FUTURE methadone (DOLOPHINE) 10 mg tabletTake 3 tablets by mouth twice daily for 30 days. Earliest Fill Date: 08/01/17Disp: 180 tabletRfl: 0 [START ON 08/31/2017] methadone (DOLOPHINE) 10 mg tabletTake 3 tablets by mouth twice daily for 30 days. Earliest Fill Date: 08/31/17Disp: 180 tabletRfl: 0 Prescriptions as of 07/27/2017 Sig: LINACLOTIDE 290 MCG CAPSULE Take 1 capsule by mouth once * LEVOTHYROXINE 25 MCG TABLET TAKE 1 TABLET BY MOUTH ONCE D* TESTOSTERONE CYPIONATE 200 MG* INJECT 0.5 ML IM ONCE WEEKLY SERTRALINE 100 MG TABLET Take 200 mg by mouth once genoveva* * K-DUR 20 MEQ TABLET,EXTENDED * Take two tablets three times * * AMILORIDE 5 MG TABLET Take one tablet once a day METHADONE 10 MG TABLET Take 3 tablets by mouth twice* METHADONE 10 MG TABLET Take 3 tablets by mouth twice* Problem List As Of Date 07/27/2017 Noted Resolved POSTLAMINECT SYND-LUMBAR [M96.1] INVALID FOR* ABNORMAL COAGULATION PROFILE [R79.1] INVALID FOR* Lumbar spondylosis [M47.816] INVALID FOR* Prescriptions ordered this encounter Disp Refills Start End METHADONE 10 MG TABLET 180 * 0 07/27/2017 07/27/2017 Class: Print RX Route: ORAL Sig: Take 3 tablets by mouth twice daily for 30 days. METHADONE 10 MG TABLET 180 * 0 07/27/2017 07/27/2017 Class: Print RX Route: ORAL Sig: Take 3 tablets by mouth twice daily for 30 days. LINACLOTIDE 290 MCG CAPSULE 30 c* 1 07/27/2017 Route: ORAL Sig: Take 1 capsule by mouth once daily. METHADONE 10 MG TABLET 180 * 0 08/01/2017 08/31/2017 Class: Print RX Route: ORAL Sig: Take 3 tablets by mouth twice daily for 30 days. Earliest Fill Date: 08/01/17 METHADONE 10 MG TABLET 180 * 0 08/31/2017 09/30/2017 Class: Print RX Route: ORAL Sig: Take 3 tablets by mouth twice daily for 30 days. Earliest Fill Date: 08/31/17 Medications Discontinued During This Encounter methadone (DOLOPHINE) 10 mg tablet 180 * 0 07/01/2017 07/27/2017 Class: Print RX Route: ORAL Sig: Take 3 tablets by mouth twice daily for 30 days. Earliest Fill Date: 07/01/17 Disc: Course of therapy completed methadone (DOLOPHINE) 10 mg tablet 180 * 0 06/01/2017 07/27/2017 Class: Print RX Route: ORAL Sig: Take 3 tablets by mouth twice daily for 30 days. Earliest Fill Date: 06/01/17 Disc: Course of therapy completed linaclotide (LINZESS) 290 mcg cap 30 c* 1 05/23/2017 07/27/2017 Route: ORAL Sig: Take 1 capsule by mouth once daily. Disc: Reason for discontinue is not on file. methadone (DOLOPHINE) 10 mg tablet 180 * 0 07/27/2017 07/27/2017 Class: Print RX Route: ORAL Sig: Take 3 tablets by mouth twice daily for 30 days. Disc: Reason for discontinue is not on file. methadone (DOLOPHINE) 10 mg tablet 180 * 0 07/27/2017 07/27/2017 Class: Print RX Route: ORAL Sig: Take 3 tablets by mouth twice daily for 30 days. Disc: Reason for discontinue is not on file. Disposition: Return in about 2 months (around 09/26/2017) for with PA for med refills . Follow-up and Disposition History Recorded Encounter Status:Closed by ILAN ACEVES MD on 08/03/17 PROGRESS Observed: 07/25/2017 Status: COMPLETED Source: [place] 8:31 AM [facility] REPOSIT[facility] HNO ID: [id number] Author: Solis Gee) Bertin Service: (none) Author Type: Physician Type: Progress Notes Filed: 07/25/2017 11:34 AM Note Text: CC: Low back pain HPI: Pt is a 36 year old male who returns to the clinic today for a consult regarding his low back pain. In 2006 he suffered a work related injury after falling off a step ladder and landing on a pile of wood. In 2008 he had a Medtronic paddle lead SCS implanted by Dr. Espinoza. He reported good relief of his low back and leg pain for nearly 2 years. In 2011 he underwent a revision to replace the extension wire and IPG. He still reports good pain relief of his radicular pain with the use of the stimulator. However, he has very little pain relief in his mid low back. He reports that he experiences pressure and sharp pains in this region. It is constantly present and is a 5 at its best and often reaches a 10. He has had programming sessions with minimal success. During the last interrogation it was noted that All impedances WNL except contacts 9,13, and 15, which are reading >10,000 and are invalid. He is here to discuss options regarding newer forms of stimulation to treat his low back pain. I obtained the history and have reviewed the information dictated by Andreas Garrett RN for accuracy. ?I have edited the note?and agree with the final text. He has the lead tip at T7 spanning to T8. The wires pass under T9 lamina. We discussed options and first step will be to see if the paddle is compatible with the [employer] system in which case we could test as an externalized trial. If this is the case I would also proposed adding one or 2 percutaneous wires from below at same time to increase the options. Because of the existing system we would not however have coverage over T9 body. As this is sometimes the optimal site for stimulation he may not be able to benefit from HFS. If this system is not compatible we could either try percutaneous leads alone or pull down/revise the paddle. Solis Miranda MD I spent 30 minutes in the visit, with more than 50% of the total [id number] time of the visit in counseling / coordination of care. CNOV Observed: 07/25/2017 Status: COMPLETED Source: [place] 8:10 AM [facility] RE[facility] Office Visit (NRESMN) MAN BRAVO ([id number]) 1980 M Date Time Provider Department 07/25/17 8:10 AM SOLIS MIRANDA) NRESMN During your visit today, we recorded the following information about you: Pulse Respiration Blood pressure Weight 79/minute 20/minute 139/70 110.3 kg Height 1.829 m Solis Miranda MD 07/25/2017 11:34 AM Signed CC: Low back pain HPI: Pt is a 36 year old male who returns to the clinic today for a consult regarding his low back pain. In 2006 he suffered a work related injury after falling off a step ladder and landing on a pile of wood. In 2008 he had a Medtronic paddle lead SCS implanted by Dr. Espinoza. He reported good relief of his low back and leg pain for nearly 2 years. In 2011 he underwent a revision to replace the extension wire and IPG. He still reports good pain relief of his radicular pain with the use of the stimulator. However, he has very little pain relief in his mid low back. He reports that he experiences pressure and sharp pains in this region. It is constantly present and is a 5 at its best and often reaches a 10. He has had programming sessions with minimal success. During the last interrogation it was noted that All impedances WNL except contacts 9,13, and 15, which are reading >10,000 and are invalid. He is here to discuss options regarding newer forms of stimulation to treat his low back pain. I obtained the history and have reviewed the information dictated by Andreas Garrett RN for accuracy. ?I have edited the note?and agree with the final text. He has the lead tip at T7 spanning to T8. The wires pass under T9 lamina. We discussed options and first step will be to see if the paddle is compatible with the [employer] system in which case we could test as an externalized trial. If this is the case I would also proposed adding one or 2 percutaneous wires from below at same time to increase the options. Because of the existing system we would not however have coverage over T9 body. As this is sometimes the optimal site for stimulation he may not be able to benefit from HFS. If this system is not compatible we could either try percutaneous leads alone or pull down/revise the paddle. Solis Miranda MD I spent 30 minutes in the visit, with more than 50% of the total [id number] time of the visit in counseling / coordination of care. 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] Prescriptions as of 07/25/2017 Sig: TESTOSTERONE CYPIONATE 200 MG* INJECT 0.5 ML IM ONCE WEEKLY METHADONE 10 MG TABLET Take 3 tablets by mouth twice* LINACLOTIDE 290 MCG CAPSULE Take 1 capsule by mouth once * LEVOTHYROXINE 25 MCG TABLET TAKE 1 TABLET BY MOUTH ONCE D* SERTRALINE 100 MG TABLET Take 200 mg by mouth once genoveva* * K-DUR 20 MEQ TABLET,EXTENDED * Take two tablets three times * * AMILORIDE 5 MG TABLET Take one tablet once a day METHADONE 10 MG TABLET Take 3 tablets by mouth twice* Medication notes this encounter METHADONE 10 MG TABLET >> Danny Jean Baptiste RN, RN 07/25/2017 8:01 AM >> DANNY JEAN BAPTISTE TueJul 25, 2017 8:01 AM duplicate Problem List As Of Date 07/25/2017 Noted Resolved POSTLAMINECT SYND-LUMBAR [M96.1] INVALID FOR* ABNORMAL COAGULATION PROFILE [R79.1] INVALID FOR* Lumbar spondylosis [M47.816] INVALID FOR* Encounter Status:Closed by SOLIS MIRANDA MD on 07/25/17 FREE TESTOSTERONE Collected: 06/23/2017 Status: F Source: [place] 11:09 AM [facility] REPOS[facility] TYPE CODE TESTS RESULT OUT OF REFERENCE UNITS RANGE LAB TESTO 193-824 ng/dL Testosterone Low 95 Result Comment: A testosterone level in the 193-320 ng/dL range with associated clinical symptoms is considered low and may indicate hypogonadism (from [place] 2010 [id number]). Results >320 ng/dL are considered normal. Result rechecked. LAB FREE 1.4-3.2 % Free Testosterone % 2.7 LAB FRTSTO 41.7-180.2 pg/mL Free Testosterone Low 25.7 Result Comment: This test was developed and its performance characteristics determined by [facility] [place] ([facility]). It has not been cleared or approved by the FDA. [facility] is regulated under CLIA as qualified to perform high-complexity testing. This test is used for clinical purposes. It should not be regarded as investigational or for research. Performed By: #### FTESTO #### [facility] [address], [place] [address] CBC Collected: 06/20/2017 Status: F Source: [place] 7:47 AM [facility] REPOSITORY TYPE CODE TESTS RESULT OUT OF REFERENCE UNITS RANGE LAB WBC 3.70-11.00 k/uL WBC 7.41 LAB RBC 4.20-6.00 m/uL RBC 4.75 LAB HGB 13.0-17.0 g/dL Hemoglobin 14.4 LAB HCT 39.0-51.0 % Hematocrit 42.1 LAB MCV 80.0-100.0 fL MCV 88.6 LAB MCH 26.0-34.0 pG MCH 30.3 LAB MCHC 30.5-36.0 g/dL MCHC 34.2 LAB RDWCV 11.5-15.0 % RDW-CV 12.5 LAB PLTCT 150-400 k/uL Platelet Count 228 LAB MPV 9.0-12.7 fL MPV 9.1 LAB ABSNUC <0.01 k/uL Absolute nRBC <0.01 Performed By: #### CBC, LH, FT4, TSH, PROL, PSAS1, VITD, FTESTO #### [place] [phone] LH Collected: 06/20/2017 Status: F Source: [facility] 7:47 AM [facility] REPOSITORY TYPE CODE TESTS RESULT OUT OF RANGE REFERENCE UNITS LAB LH 1.8-10.8 mU/mL Low LH 0.5 Performed By: #### CBC, LH, FT4, TSH, PROL, PSAS1, VITD, FTESTO #### [place] [phone] FREE T4 Collected: 06/20/2017 Status: F Source: [place] 7:47 AM [facility] REPOSITORY TYPE CODE TESTS RESULT OUT OF RANGE REFERENCE UNITS LAB FT4 0.9-1.7 ng/dL Free T4 1.2 Performed By: #### CBC, LH, FT4, TSH, PROL, PSAS1, VITD, FTESTO #### [place] [phone] TSH Collected: 06/20/2017 Status: F Source: [place] 7:47 AM [facility] REPOSITORY TYPE CODE TESTS RESULT OUT OF RANGE REFERENCE UNITS LAB TSH 0.400-5.500 uU/mL High TSH 12.900 Performed By: #### CBC, LH, FT4, TSH, PROL, PSAS1, VITD, FTESTO #### [place] [phone] PROLACTIN Collected: 06/20/2017 Status: F Source: [place] 7:47 AM [facility] REPOSITORY TYPE CODE TESTS RESULT OUT OF REFERENCE UNITS RANGE LAB PROL 4.0-15.2 ng/mL Prolactin 14.2 Performed By: #### CBC, LH, FT4, TSH, PROL, PSAS1, VITD, FTESTO #### [place] [phone] PSA, SCREENING Collected: 06/20/2017 Status: F Source: [place] 7:47 [facility] REPOSITORY TYPE CODE TESTS RESULT OUT OF REFERENCE UNITS RANGE LAB PSAS 0.00-2.59 ng/mL PSA, Screening 0.53 Result Comment: Total PSA test methodology used is the Electrochemiluminescence Immunoassay. Performed By: #### CBC, LH, FT4, TSH, PROL, PSAS1, VITD, FTESTO #### [facility] [address] [place] [id number] VITAMIN D 25 HYDROXY Collected: 06/20/2017 Status: F Source: [place] 7:[address] [place] [address] REPOSITORY TYPE CODE TESTS RESULT OUT OF REFERENCE UNITS RANGE LAB VITD 31.0-80.0 ng/mL Low Vitamin D 25 23.2 Hydroxy Result Comment: Classification of 25 [place] Vitamin D status: Insufficiency/Moderate Deficiency: < or = 30 ng/mL Sufficiency/Optimal Levels: 31 to 80 ng/mL Toxicity: > 100 ng/mL Test performed by chemiluminescent immunoassay. Performed By: #### CBC, LH, FT4, TSH, PROL, PSAS1, VITD, FTESTO #### [facility] [address] [place] [address] FREE TESTOSTERONE Collected: 06/20/2017 Status: F Source: [place] 7:[address] [place] [address] REPOSITORY TYPE CODE TESTS RESULT OUT OF REFERENCE UNITS RANGE LAB TESTO 193-824 ng/dL Testosterone Low 36 Result Comment: A testosterone level in the 193-320 ng/dL range with associated clinical symptoms is considered low and may indicate hypogonadism (from NEJM 2010 363:123-135). Results >320 ng/dL are considered normal. Result rechecked. LAB FREE 1.4-3.2 % Free Testosterone % 2.6 LAB FRTSTO 41.7-180.2 pg/mL Free Testosterone Low 9.2 Result Comment: This test was developed and its performance characteristics determined by [facility] [place] ([facility]). It has not been cleared or approved by the FDA. [facility] is regulated under CLIA as qualified to perform high-complexity testing. This test is used for clinical purposes. It should not be regarded as investigational or for research. Performed By: #### CBC, LH, FT4, TSH, PROL, PSAS1, VITD, FTESTO #### [facility] [address] [place], [place] [address] PROGRESS Observed: 06/16/2017 Status: COMPLETED Source: [place] 2:18 PM [facility] REPOSITORY HNO ID: [id number] Author: Tito Lutz Service: (none) Author Type: Physician Type: Progress Notes Filed: 07/16/2017 7:19 PM Note Text: Last Visit: May 05, 2015 Reason for follow up: new complaints of hypothyroidism and low measurement of serum testosterone HISTORY OF PRESENT ILLNESS; Mr. Bravo is a 36 year old gentleman came for follow up visit with possible hypothyroidism (new) and low testosterone. He has known of this problem since June 2013. He is on pain meds for long time. In 2006 feel from a ladder and injured his back, s/p surgery, since then he has chronic back pain and using meds. Current pain meds for back problem is methadone, has spinal stimulators, he was complaining low libido, erection problem was since Feb 2013, and he had his blood test done showing low testosterone. Context: low measurement of serum testosterone was identified June 2013. Patient denies history of anosmia chemotherapy excessive ETOH consumption head injury resulting in LOC headaches mumps neurosurgery peripheral vision abnormality radiation therapy testicular infection testicular injury/trauma reports history of back injury from a fall from ladder in 2006 Patient denies history of recreational drug use and performance enhancing drugs and reports history of none Modifying factors: Patient has not been begun on andogen replacement therapy Puberty was normal, 2 kids Mr. Bravo currently reports the following signs AND symptoms: poor libido, erectile dysfunction, fatigue, decline in strength and depressed mood and denies the following symptoms: decline in facial hair growth, testicular atrophy, gynecomastia and weight gain. The patient denies use of ketoconazole and reports use of opioids for his back pain from injury, used Vicodin, then percocet (5-6 pills per day) from 2006 through 2009, 1.5 yr off pain meds, then again started with percocet 5-6 pills a day and then on methadone. Also having hot flashes since May 2013. Nov 07, 2014. So currently he is not taking any. He was having period of Rt sided weakness so he was seeing an neurology and he was undergoing evaluation by neurology including spinal tap and labs. During that time his labs showed high TSH, (Oct 2014). He was not give nay meds, and repeated a test last week and was told to have low thyroid again. He came to see us for thyroid and low testosterone. May 05, 2015: after last visit ([facility] was first visit), he didn't come back for follow up till today, however, his labs showed low testosterone with low LH and low normal FSH, so we went ahead and got a CT scan of the pituitary gland as he can't undergo MRI due to presence of spinal stimulator. CT scan of the pituitary was normal. He was seeing an urologist started him on testosterone injections in 2013, and then a repeat lab showed high Hb/Hct and so he stopped taking since then and he is off since December 16, 2016: still getting hot flashes coupe of time a day, even when he is on Testosterone, has back pain and taking methadone for that, he also has h/o hypothyroidism on LT4 25 mcg once a day, taking testosterone for hypogonadism 100 mg IM once a week. When he takes testosterone his energy is good but not 100%, when taking testosterone his frequency of hot flashes are slightly less once a day not 3-4 times a day. Total 3 kids, last one was born May 2016. And doesn't want any more. No more night sweats. June 16, 2017: still didn't get his testosterone injections, we need 2 testosterone level from his insurance point of view to get approval, he understood, still having low energy and hot flashes, occasional night sweats, Overall he has the following additional concerns: low energy, hot flashes, and low energy. PAST MEDICAL HISTORY Diagnosis Date - Back pain - PMH - PAST MEDICAL HISTORY OF hypokalemic periodic pyralysis PAST SURGICAL HISTORY Procedure Laterality Date - PAST SURGICAL HISTORY OF 11/13 lumbar surgery - PAST SURGICAL HISTORY OF 2008 Spinal cord stimulator [employer] - [place] ANESTH,DX ARTHROSCOPIC PROC KNEE JOINT 2000, 2001 right torn meniscus x 2 - THUMB 2002 gamekeeper's thumb surg FAMILY HISTORY Problem Relation Age of Onset - Hypertension Father - Cancer Father basal cell - multiple sclerosis [OTHER] Father also father's sister - Diabetes Maternal Grandfather - Heart Maternal Grandfather - Diabetes Paternal Grandfather - Heart Paternal Grandfather SOCIAL HISTORY Marital Status: Social History Substance Use Topics - Smoking status: Never Smoker - Smokeless tobacco: Current User Types: Chew - Alcohol use No Family and social history reviewed and updated in the system. Tobacco Use: Types: Chew Alcohol Use: No Drug Use: No Sexual Activity: Patient is sexually active, with female partner(s). No reported control method. 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 Current Outpatient Prescriptions: [START ON 07/01/2017] methadone (DOLOPHINE) 10 mg tablet Take 3 tablets by mouth twice daily for 30 days.Earliest Fill Date: 07/01/17 Disp: 180 tablet Rfl: 0 methadone (DOLOPHINE) 10 mg tablet Take 3 tablets by mouth twice daily for 30 days.Earliest Fill Date: 06/01/17 Disp: 180 tablet Rfl: 0 linaclotide (LINZESS) 290 mcg cap Take 1 capsule by mouth once daily. Disp: 30 capsule Rfl: 1 levothyroxine (SYNTHROID) 25 mcg tablet TAKE 1 TABLET BY MOUTH ONCE DAILY. Disp: 90 tablet Rfl: 0 sertraline (ZOLOFT) 100 mg tablet Take 200 mg by mouth once daily. Disp: Rfl: potassium chloride(K-DUR 20 MEQ TAB) Take two tablets three times a day as needed Disp: 0 Rfl: 0 AMILORIDE 5 MG TAB Take one tablet once a day Disp: 0 Rfl: 0 testosterone cypionate (DEPO-TESTOSTERONE) 200 mg/mL injection INJECT 0.5 ML IM ONCE WEEKLY Disp: 10 mL Rfl: 2 No current facility-administered medications for this visit. Allergies As of Date: 06/16/2017 Allergen Noted Reaction VICODIN [HYDROCODONE-ACETAMINOPHE*11/15/2011 Hives Fully Assessed 06/16/2017 REVIEW OF SYSTEMS: June 16, 2017 Constitutional: no fever, or chills, trying to loose weight. Lost 6 lbs since Skin: no rashes, pruritis or dry skin Cardiovascular: denies chest pain, heart palpitations or orthopnea Pulmonary: denies wheezing, productive cough or exertional dyspnea Gastrointestonal: denies nausea, vomiting, diarrhea or constipation Genitourianry: still positive history of nocturia (2-3 times per night), denies polyuria, frequency and urgency, Musculoskeletal: denies difficulty with ambulation, or focal weakness, pain positive in knees, elbows and back (lower), had some weakness in his Rt side, now gone after he is taking potassium. Neurological: no numbness, no tingling and no focal weakness Endocrine: negative for Diabetes, and negative for Payson's disease, but positive for Thyroid disease (recently) Hematologic: Negative for anemia, easy bleeding and bruising. All other systems: non-contributory PHYSICAL EXAM: BP 106/76 (BP Site: Left Arm, BP Position: Sitting, BP Cuff Size: Large Adult) Pulse 70 Ht 181.7 cm (5' 11.54) Wt 108 kg (238 lb 3.2 oz) SpO2 95% BMI 32.73 kg/m2 June 16, 2017 Appearance: alert, in no acute distress, obese Skin: Skin color, texture, turgor normal, no suspicious rashes or lesions Head: normocephalic, no masses, lesions, tenderness or abnormalities Eyes: Anicteric sclera. Pupils are equally round and reactive to light. Extraocular movements are intact. Oropharynx: Lips, mucosa, and tongue normal, teeth and gums normal, oropharynx normal Neck: Supple, no adenopathy; thyroid symmetric, normal size, no bruits Heart: RRR without murmur, gallop, or rubs. No ectopy Lungs: Lungs clear to auscultation. No wheezing, rhonchi, rales Abdomen: soft, non-tender, positive bowel sounds Genitourinary: Testicular volume 14 ml, Testicular consistency firm and Penis, normal Extremities: Normal, No deformities, No skin discoloration, No edema and Normal pulses bilaterally. DATA: Component Latest Ref Rng AND Units 03/03/2016 WBC 3.70 - 11.00 k/uL 6.68 RBC 4.20 - 6.00 m/uL 5.56 Hemoglobin 13.0 - 17.0 g/dL 17.6 (H) Hematocrit 39.0 - 51.0 % 50.0 MCV 80.0 - 100.0 fL 89.9 MCH 26.0 - 34.0 pG 31.7 MCHC 30.5 - 36.0 g/dL 35.2 RDW-CV 11.5 - 15.0 % 12.6 Platelet Count 150 - 400 k/uL 224 MPV 9.0 - 12.7 fL 9.4 Absol Gran Count 1.45 - 7.50 k/uL 3.89 Aldosterone 3.1 - 35.4 ng/dL 19.1 Direct Renin pg/mL 12.9 Aldosterone/Renin Act Rat <4 1 TSH 0.400 - 5.500 uU/mL 2.690 Free T4 0.9 - 1.7 ng/dL 1.0 Free T3 2.3 - 4.1 pg/mL 3.8 Microsomal Antibody <5.6 IU/mL 263.4 (H) Vitamin D 25 Hydroxy 31.0 - 80.0 ng/mL 19.5 (L) 08/05/2015 ?3:10 PM - Interface, Results In Component Results Component Value Range AND Units Status Performing Lab Semen Volume 2.6 >1.5 mL Final CCANDR Comment: Testing performed at [facility]. Contact Dr. Juanjose Rojas, PhD, [facility] for any questions ([phone]). Semen pH 7.4 >7.2 Final [facility] Concentration 97.60 >15 M/mL Final [facility] % Motile Sperm 52 >40 % Final [facility] Total Count Sperm 253.76 M Final [facility] Total Motile Sperm 131.96 M Final [facility] Forward Progression 4 Final [facility] Comment: (NOTE) INTERPRETATION: ?0 = No motility ? ?1 = Weak, twitching in place ? ?2 = Poor to moderate, erratic ? ?3 = Good motility, unidirectional ? ?4 = Rapid unidirectional Sperm Diff, ?James 5 >4 % Final [facility] Abnormal Head 95 % Final [facility] Color, Semen [place] Final [facility] Undiff Rnd Cell Rout Semen Anl 2.14 (H) <1.0 M/mL Final [facility] Semen Viscosity HIGH Final [facility] Semen Age 30 Min Final [facility] Comment: MINUTES Abstinence Time, Semen GREATER THAN 2 WEEKS Days Final [facility] Collection Time 1120 Final [facility] Receipt Time 1121 Final [facility] Slide No. Semen Rout [id number] Final [facility] Semen Comment 1 Final [facility] VTS USED FOR HIGH VISCOSITY Semen Comment 2 Final [facility] MANUAL COUNT AND MOTILITY USED. Component Latest Ref Rng AND Units 09/26/2013 12/23/2014 Testosterone 220 - 1,000 ng/dL 74 (L) 173 (L) Testosterone Free % 0.5 - 3.2 % 1.6 Testosterone Free 40 - 240 pg/mL 11.8 (L) Component Latest Ref Rng AND Units 03/03/2016 05/05/2016 Cannabinoid Quant, Urine <16 ng/mL <16 Benzoylecognine Quant, Urine <24 ng/mL <24 6-Acetylmorphine Quant, Urine <5 ng/mL <5 Amphetamine Quant, Urine <5 ng/mL <5 Methamphetamine Quant, Urine <8 ng/mL <8 Buprenorphine Quant, Urine <20 ng/mL <20 Norbuprenorphine Quant, Urine <20 ng/mL <20 Methadone Quant, Urine <16 ng/mL 1870 (H) EDDP Quant, Urine <6 ng/mL >4178 (H) Tramadol Quant, Urine <25 ng/mL <25 Desmethyltramadol Quant, Urine <20 ng/mL <20 Fentanyl Quant, Urine <6 ng/mL <6 Norfentanyl Quant, Urine <6 ng/mL <6 Codeine Quant, Urine <11 ng/mL <11 Morphine Quant, Urine <10 ng/mL <10 Dihydrocodeine Quant, Urine <5 ng/mL <5 Hydrocodone Quant, Urine <8 ng/mL <8 Oxycodone Quant, Urine <5 ng/mL 66 (H) Hydromorphone Quant, Urine <5 ng/mL <5 Oxymorphone Quant, Urine <5 ng/mL 281 (H) Creatinine,Ur Pain Vivar >19 mg/dL >50 Urine pH, Pain Vivar 4 - 10 4-10 Specific [place],Ur Pain Vivar 1.005 - 1.020 1.005-1.020 Oxidants,Ur Negative Negative Specimen Quality, Ur Pain Vivar Specimen quality results within acceptable limits. Note,Ur Pain Vivar This test is for Medical use only. WBC 3.70 - 11.00 k/uL 6.68 RBC 4.20 - 6.00 m/uL 5.56 Hemoglobin 13.0 - 17.0 g/dL 17.6 (H) Hematocrit 39.0 - 51.0 % 50.0 MCV 80.0 - 100.0 fL 89.9 MCH 26.0 - 34.0 pG 31.7 MCHC 30.5 - 36.0 g/dL 35.2 RDW-CV 11.5 - 15.0 % 12.6 Platelet Count 150 - 400 k/uL 224 MPV 9.0 - 12.7 fL 9.4 Absol Gran Count 1.45 - 7.50 k/uL 3.89 Aldosterone 3.1 - 35.4 ng/dL 19.1 Direct Renin pg/mL 12.9 Aldosterone/Renin Act Rat <4 1 TSH 0.400 - 5.500 uU/mL 2.690 Free T4 0.9 - 1.7 ng/dL 1.0 Free T3 2.3 - 4.1 pg/mL 3.8 Microsomal Antibody <5.6 IU/mL 263.4 (H) Vitamin D 25 Hydroxy 31.0 - 80.0 ng/mL 19.5 (L) Component Latest Ref Rng 09/26/2013 Protein, Total 6.0 - 8.4 g/dL 7.4 Albumin 3.5 - 5.0 g/dL 4.4 Calcium 8.5 - 10.5 mg/dL 9.7 Bilirubin, Total 0.0 - 1.5 mg/dL 0.4 Alkaline Phosphatase 40 - 150 U/L 78 AST 7 - 40 U/L 26 Glucose 65 - 100 mg/dL 113 (H) BUN 10 - 25 mg/dL 13 Creatinine 0.70 - 1.40 mg/dL 1.02 Sodium 135 - 146 mmol/L 141 Potassium 3.5 - 5.0 mmol/L 3.5 Chloride 98 - 110 mmol/L 102 CO2 23 - 32 mmol/L 28 Anion Gap 0 - 15 mmol/L 11 ALT 5 - 50 U/L 20 eGFR- >60 eGFR-All Other Races >60 WBC 3.70 - 11.00 k/uL 5.76 RBC 4.20 - 6.00 m/uL 4.74 Hemoglobin 13.0 - 17.0 g/dL 14.4 Hematocrit 39.0 - 51.0 % 40.9 MCV 80.0 - 100.0 fL 86.3 MCH 26.0 - 34.0 pG 30.4 MCHC 30.5 - 36.0 g/dL 35.2 RDW-CV 11.5 - 15.0 % 12.5 Platelet Count 150 - 400 k/uL 216 MPV 9.0 - 12.7 fL 8.6 (L) Absol Gran Count 1.45 - 7.50 k/uL 3.34 Testosterone 220 - 1000 ng/dL 74 (L) Testosterone Free % 0.5 - 3.2 % 1.6 Testosterone Free 40 - 240 pg/mL 11.8 (L) Hemoglobin A1C 4.0 - 6.0 % 5.2 Estimated Average Glucose 103 Prolactin 2.0 - 14.0 ng/mL 4.7 LH 1.0 - 7.0 mU/mL 0.6 (L) FSH 1 - 10 mU/mL 1.2 PSA Screening 0.00 - 2.59 ng/mL 0.37 TSH 0.400 - 5.500 uU/mL 4.230 Free T4 0.7 - 1.8 ng/dL 1.1 Vitamin D 25 Hydroxy 31.0 - 80.0 ng/mL 24.8 (L) TSH without Reflex10/22/2014 [facility] [place] [place] Component Name Value Range TSH 5.42 (H) Comment: Test Performed by [facility], [address] [place] [address] [id number] 0.36-3.74 micUnt/mL Hemoglobin (g/dL) Date Value 03/23/2012 15.4 Hematocrit (%) Date Value 03/23/2012 44.6 WBC (k/uL) Date Value 03/23/2012 8.23 Platelet Count (k/uL) Date Value 03/23/2012 250 ASSESSMENT: Mr. Bravo is a 36 year old gentleman came for follow up visit regarding hypothyroid, hypogonadism, infertility and few other medical concerns as follows. RECOMMENDATIONS: (E29.1) Hypogonadism in male (primary encounter diagnosis) Comment: pathophysiology AND treatment options discussed. Prescribe testosterone. check level AND Rx as needed. Monitor side effects. Plan: TSH BLD, T4 FREE/FREE THYROX, TESTOSTERONE, FREE AND TOTAL, LUTEINIZING HORMONE, PROLACTIN BLD, CBC, PSA/PROSTSPECAG SCRN, testosterone cypionate (DEPO-TESTOSTERONE) 200 mg/mL injection (E34.9) Low testosterone Comment: pathophysiology AND treatment options discussed. check level AND Rx as needed. Plan: TESTOSTERONE, FREE AND TOTAL, CBC, PSA/PROSTSPECAG SCRN (E03.9) Acquired hypothyroidism Comment: pathophysiology AND treatment options discussed. Monitor TFT. Stable on LT4. continue current Rx. Plan: TSH BLD, T4 FREE/FREE THYROX, CBC, PSA/PROSTSPECAG SCRN (R53.83) Lack of energy Comment: likely multifactorial. Optimize thyroid, Vit D, and testosterone. encourage hydration and regular exercise. 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 Diet, exercise and food supplement discussed. Avoid high TSH. Plan: CBC, PSA/PROSTSPECAG SCRN (E55.9) Vitamin D deficiency Comment: check level AND Rx as needed. Plan: CBC, PSA/PROSTSPECAG SCRN, VITAMIN D 25 HYDROXY (R23.2) Hot flash in male Comment: optimize testosterone Rx. Supportive care. Plan: testosterone cypionate (DEPO-TESTOSTERONE) 200 mg/mL injection Tito Lutz MD June 16, 2017 CNOV Observed: 06/16/2017 Status: COMPLETED Source: [place] 1:45 PM [facility] REPOSITORY Office Visit (ENDMED) MAN BRAVO ([id number]) 1980 M Date Time Provider Department 06/16/17 1:45 PM TITO LUTZ During your visit today, we recorded the following information about you: Pulse Blood pressure Weight Height 70/minute 106/76 108 kg 1.817 m Tito Lutz MD 07/16/2017 7:19 PM Signed Last Visit: May 05, 2015 Reason for follow up: new complaints of hypothyroidism and low measurement of serum testosterone HISTORY OF PRESENT ILLNESS; Mr. Bravo is a 36 year old gentleman came for follow up visit with possible hypothyroidism (new) and low testosterone. He has known of this problem since June 2013. He is on pain meds for long time. In 2006 feel from a ladder and injured his back, s/p surgery, since then he has chronic back pain and using meds. Current pain meds for back problem is methadone, has spinal stimulators, he was complaining low libido, erection problem was since Feb 2013, and he had his blood test done showing low testosterone. Context: low measurement of serum testosterone was identified June 2013. Patient denies history of anosmia chemotherapy excessive ETOH consumption head injury resulting in LOC headaches mumps neurosurgery peripheral vision abnormality radiation therapy testicular infection testicular injury/trauma reports history of back injury from a fall from ladder in 2006 Patient denies history of recreational drug use and performance enhancing drugs and reports history of none Modifying factors: Patient has not been begun on andogen replacement therapy Puberty was normal, 2 kids Mr. Bravo currently reports the following signs AND symptoms: poor libido, erectile dysfunction, fatigue, decline in strength and depressed mood and denies the following symptoms: decline in facial hair growth, testicular atrophy, gynecomastia and weight gain. The patient denies use of ketoconazole and reports use of opioids for his back pain from injury, used Vicodin, then percocet (5-6 pills per day) from 2006 through 2009, 1.5 yr off pain meds, then again started with percocet 5-6 pills a day and then on methadone. Also having hot flashes since May 2013. Nov 07, 2014. So currently he is not taking any. He was having period of Rt sided weakness so he was seeing an neurology and he was undergoing evaluation by neurology including spinal tap and labs. During that time his labs showed high TSH, (Oct 2014). He was not give nay meds, and repeated a test last week and was told to have low thyroid again. He came to see us for thyroid and low testosterone. May 05, 2015: after last visit ([facility] was first visit), he didn't come back for follow up till today, however, his labs showed low testosterone with low LH and low normal FSH, so we went ahead and got a CT scan of the pituitary gland as he can't undergo MRI due to presence of spinal stimulator. CT scan of the pituitary was normal. He was seeing an urologist started him on testosterone injections in 2013, and then a repeat lab showed high Hb/Hct and so he stopped taking since then and he is off since December 16, 2016: still getting hot flashes coupe of time a day, even when he is on Testosterone, has back pain and taking methadone for that, he also has h/o hypothyroidism on LT4 25 mcg once a day, taking testosterone for hypogonadism 100 mg IM once a week. When he takes testosterone his energy is good but not 100%, when taking testosterone his frequency of hot flashes are slightly less once a day not 3-4 times a day. Total 3 kids, last one was born May 2016. And doesn't want any more. No more night sweats. June 16, 2017: still didn't get his testosterone injections, we need 2 testosterone level from his insurance point of view to get approval, he understood, still having low energy and hot flashes, occasional night sweats, Overall he has the following additional concerns: low energy, hot flashes, and low energy. PAST MEDICAL HISTORY Diagnosis Date - Back pain - PMH - PAST MEDICAL HISTORY OF hypokalemic periodic pyralysis PAST SURGICAL HISTORY Procedure Laterality Date - PAST SURGICAL HISTORY OF 11/13 lumbar surgery - PAST SURGICAL HISTORY OF 2008 Spinal cord stimulator [employer] - [place] ANESTH,DX ARTHROSCOPIC PROC KNEE JOINT 2000, 2001 right torn meniscus x 2 - THUMB 2002 gamekeeper's thumb surg FAMILY HISTORY Problem Relation Age of Onset - Hypertension Father - Cancer Father basal cell - multiple sclerosis [OTHER] Father also father's sister - Diabetes Maternal Grandfather - Heart Maternal Grandfather - Diabetes Paternal Grandfather - Heart Paternal Grandfather SOCIAL HISTORY Marital Status: Social History Substance Use Topics - Smoking status: Never Smoker - Smokeless tobacco: Current User Types: Chew - Alcohol use No Family and social history reviewed and updated in the system. Tobacco Use: Types: Chew Alcohol Use: No Drug Use: No Sexual Activity: Patient is sexually active, with female partner(s). No reported control method. 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 Current Outpatient Prescriptions: [START ON 07/01/2017] methadone (DOLOPHINE) 10 mg tablet Take 3 tablets by mouth twice daily for 30 days.Earliest Fill Date: 07/01/17 Disp: 180 tablet Rfl: 0 methadone (DOLOPHINE) 10 mg tablet Take 3 tablets by mouth twice daily for 30 days.Earliest Fill Date: 06/01/17 Disp: 180 tablet Rfl: 0 linaclotide (LINZESS) 290 mcg cap Take 1 capsule by mouth once daily. Disp: 30 capsule Rfl: 1 levothyroxine (SYNTHROID) 25 mcg tablet TAKE 1 TABLET BY MOUTH ONCE DAILY. Disp: 90 tablet Rfl: 0 sertraline (ZOLOFT) 100 mg tablet Take 200 mg by mouth once daily. Disp: Rfl: potassium chloride(K-DUR 20 MEQ TAB) Take two tablets three times a day as needed Disp: 0 Rfl: 0 AMILORIDE 5 MG TAB Take one tablet once a day Disp: 0 Rfl: 0 testosterone cypionate (DEPO-TESTOSTERONE) 200 mg/mL injection INJECT 0.5 ML IM ONCE WEEKLY Disp: 10 mL Rfl: 2 No current facility-administered medications for this visit. Allergies As of Date: 06/16/2017 Allergen Noted Reaction VICODIN [HYDROCODONE-ACETAMINOPHE*11/15/2011 Hives Fully Assessed 06/16/2017 REVIEW OF SYSTEMS: June 16, 2017 Constitutional: no fever, or chills, trying to loose weight. Lost 6 lbs since Skin: no rashes, pruritis or dry skin Cardiovascular: denies chest pain, heart palpitations or orthopnea Pulmonary: denies wheezing, productive cough or exertional dyspnea Gastrointestonal: denies nausea, vomiting, diarrhea or constipation Genitourianry: still positive history of nocturia (2-3 times per night), denies polyuria, frequency and urgency, Musculoskeletal: denies difficulty with ambulation, or focal weakness, pain positive in knees, elbows and back (lower), had some weakness in his Rt side, now gone after he is taking potassium. Neurological: no numbness, no tingling and no focal weakness Endocrine: negative for Diabetes, and negative for Payson's disease, but positive for Thyroid disease (recently) Hematologic: Negative for anemia, easy bleeding and bruising. All other systems: non-contributory PHYSICAL EXAM: BP 106/76 (BP Site: Left Arm, BP Position: Sitting, BP Cuff Size: Large Adult) Pulse 70 Ht 181.7 cm (5' 11.54) Wt 108 kg (238 lb 3.2 oz) SpO2 95% BMI 32.73 kg/m2 June 16, 2017 Appearance: alert, in no acute distress, obese Skin: Skin color, texture, turgor normal, no suspicious rashes or lesions Head: normocephalic, no masses, lesions, tenderness or abnormalities Eyes: Anicteric sclera. Pupils are equally round and reactive to light. Extraocular movements are intact. Oropharynx: Lips, mucosa, and tongue normal, teeth and gums normal, oropharynx normal Neck: Supple, no adenopathy; thyroid symmetric, normal size, no bruits Heart: RRR without murmur, gallop, or rubs. No ectopy Lungs: Lungs clear to auscultation. No wheezing, rhonchi, rales Abdomen: soft, non-tender, positive bowel sounds Genitourinary: Testicular volume 14 ml, Testicular consistency firm and Penis, normal Extremities: Normal, No deformities, No skin discoloration, No edema and Normal pulses bilaterally. DATA: Component Latest Ref Rng AND Units 03/03/2016 WBC 3.70 - 11.00 k/uL 6.68 RBC 4.20 - 6.00 m/uL 5.56 Hemoglobin 13.0 - 17.0 g/dL 17.6 (H) Hematocrit 39.0 - 51.0 % 50.0 MCV 80.0 - 100.0 fL 89.9 MCH 26.0 - 34.0 pG 31.7 MCHC 30.5 - 36.0 g/dL 35.2 RDW-CV 11.5 - 15.0 % 12.6 Platelet Count 150 - 400 k/uL 224 MPV 9.0 - 12.7 fL 9.4 Absol Gran Count 1.45 - 7.50 k/uL 3.89 Aldosterone 3.1 - 35.4 ng/dL 19.1 Direct Renin pg/mL 12.9 Aldosterone/Renin Act Rat <4 1 TSH 0.400 - 5.500 uU/mL 2.690 Free T4 0.9 - 1.7 ng/dL 1.0 Free T3 2.3 - 4.1 pg/mL 3.8 Microsomal Antibody <5.6 IU/mL 263.4 (H) Vitamin D 25 Hydroxy 31.0 - 80.0 ng/mL 19.5 (L) 08/05/2015 ?3:10 PM - Interface, Results In Component Results Component Value Range AND Units Status Performing Lab Semen Volume 2.6 >1.5 mL Final CCANDR Comment: Testing performed at [facility]. Contact Dr. Juanjose Rojas, PhD, [facility] for any questions ([phone]). Semen pH 7.4 >7.2 Final CCANDR Concentration 97.60 >15 M/mL Final [facility]ANDR % Motile Sperm 52 >40 % Final [facility] Total Count Sperm 253.76 M Final [facility] Total Motile Sperm 131.96 M Final [facility] Forward Progression 4 Final [facility]ANDR Comment: (NOTE) INTERPRETATION: ?0 = No motility ? ?1 = Weak, twitching in place ? ?2 = Poor to moderate, erratic ? ?3 = Good motility, unidirectional ? ?4 = Rapid unidirectional Sperm Diff, ?James 5 >4 % Final [facility]ANDR Abnormal Head 95 % Final [facility] Color, Semen [place] Final [facility]ANDR Undiff Rnd Cell Rout Semen Anl 2.14 (H) <1.0 M/mL Final [facility]ANDR Semen Viscosity HIGH Final CCANDR Semen Age 30 Min Final [facility]ANDR Comment: MINUTES Abstinence Time, Semen GREATER THAN 2 WEEKS Days Final CCANDR Collection Time 1120 Final [facility]ANDR Receipt Time 1121 Final [facility]ANDR Slide No. Semen Rout [id number] Final CCANDR Semen Comment 1 Final CCANDR VTS USED FOR HIGH VISCOSITY Semen Comment 2 Final CCANDR MANUAL COUNT AND MOTILITY USED. Component Latest Ref Rng AND Units 09/26/2013 12/23/2014 Testosterone 220 - 1,000 ng/dL 74 (L) 173 (L) Testosterone Free % 0.5 - 3.2 % 1.6 Testosterone Free 40 - 240 pg/mL 11.8 (L) Component Latest Ref Rng AND Units 03/03/2016 05/05/2016 Cannabinoid Quant, Urine <16 ng/mL <16 Benzoylecognine Quant, Urine <24 ng/mL <24 6-Acetylmorphine Quant, Urine <5 ng/mL <5 Amphetamine Quant, Urine <5 ng/mL <5 Methamphetamine Quant, Urine <8 ng/mL <8 Buprenorphine Quant, Urine <20 ng/mL <20 Norbuprenorphine Quant, Urine <20 ng/mL <20 Methadone Quant, Urine <16 ng/mL 1870 (H) EDDP Quant, Urine <6 ng/mL >4178 (H) Tramadol Quant, Urine <25 ng/mL <25 Desmethyltramadol Quant, Urine <20 ng/mL <20 Fentanyl Quant, Urine <6 ng/mL <6 Norfentanyl Quant, Urine <6 ng/mL <6 Codeine Quant, Urine <11 ng/mL <11 Morphine Quant, Urine <10 ng/mL <10 Dihydrocodeine Quant, Urine <5 ng/mL <5 Hydrocodone Quant, Urine <8 ng/mL <8 Oxycodone Quant, Urine <5 ng/mL 66 (H) Hydromorphone Quant, Urine <5 ng/mL <5 Oxymorphone Quant, Urine <5 ng/mL 281 (H) Creatinine,Ur Pain Vivar >19 mg/dL >50 Urine pH, Pain Vivar 4 - 10 4-10 Specific [place],Ur Pain Vivar 1.005 - 1.020 1.005-1.020 Oxidants,Ur Negative Negative Specimen Quality, Ur Pain Vivar Specimen quality results within acceptable limits. Note,Ur Pain Vivar This test is for Medical use only. WBC 3.70 - 11.00 k/uL 6.68 RBC 4.20 - 6.00 m/uL 5.56 Hemoglobin 13.0 - 17.0 g/dL 17.6 (H) Hematocrit 39.0 - 51.0 % 50.0 MCV 80.0 - 100.0 fL 89.9 MCH 26.0 - 34.0 pG 31.7 MCHC 30.5 - 36.0 g/dL 35.2 RDW-CV 11.5 - 15.0 % 12.6 Platelet Count 150 - 400 k/uL 224 MPV 9.0 - 12.7 fL 9.4 Absol Gran Count 1.45 - 7.50 k/uL 3.89 Aldosterone 3.1 - 35.4 ng/dL 19.1 Direct Renin pg/mL 12.9 Aldosterone/Renin Act Rat <4 1 TSH 0.400 - 5.500 uU/mL 2.690 Free T4 0.9 - 1.7 ng/dL 1.0 Free T3 2.3 - 4.1 pg/mL 3.8 Microsomal Antibody <5.6 IU/mL 263.4 (H) Vitamin D 25 Hydroxy 31.0 - 80.0 ng/mL 19.5 (L) Component Latest Ref Rng 09/26/2013 Protein, Total 6.0 - 8.4 g/dL 7.4 Albumin 3.5 - 5.0 g/dL 4.4 Calcium 8.5 - 10.5 mg/dL 9.7 Bilirubin, Total 0.0 - 1.5 mg/dL 0.4 Alkaline Phosphatase 40 - 150 U/L 78 AST 7 - 40 U/L 26 Glucose 65 - 100 mg/dL 113 (H) BUN 10 - 25 mg/dL 13 Creatinine 0.70 - 1.40 mg/dL 1.02 Sodium 135 - 146 mmol/L 141 Potassium 3.5 - 5.0 mmol/L 3.5 Chloride 98 - 110 mmol/L 102 CO2 23 - 32 mmol/L 28 Anion Gap 0 - 15 mmol/L 11 ALT 5 - 50 U/L 20 eGFR- >60 eGFR-All Other Races >60 WBC 3.70 - 11.00 k/uL 5.76 RBC 4.20 - 6.00 m/uL 4.74 Hemoglobin 13.0 - 17.0 g/dL 14.4 Hematocrit 39.0 - 51.0 % 40.9 MCV 80.0 - 100.0 fL 86.3 MCH 26.0 - 34.0 pG 30.4 MCHC 30.5 - 36.0 g/dL 35.2 RDW-CV 11.5 - 15.0 % 12.5 Platelet Count 150 - 400 k/uL 216 MPV 9.0 - 12.7 fL 8.6 (L) Absol Gran Count 1.45 - 7.50 k/uL 3.34 Testosterone 220 - 1000 ng/dL 74 (L) Testosterone Free % 0.5 - 3.2 % 1.6 Testosterone Free 40 - 240 pg/mL 11.8 (L) Hemoglobin A1C 4.0 - 6.0 % 5.2 Estimated Average Glucose 103 Prolactin 2.0 - 14.0 ng/mL 4.7 LH 1.0 - 7.0 mU/mL 0.6 (L) FSH 1 - 10 mU/mL 1.2 PSA Screening 0.00 - 2.59 ng/mL 0.37 TSH 0.400 - 5.500 uU/mL 4.230 Free T4 0.7 - 1.8 ng/dL 1.1 Vitamin D 25 Hydroxy 31.0 - 80.0 ng/mL 24.8 (L) TSH without Reflex10/22/2014 [facility] [place], [place] Component Name Value Range TSH 5.42 (H) Comment: Test Performed by [facility], [address] [place] [id number] 0.36-3.74 micUnt/mL Hemoglobin (g/dL) Date Value 03/23/2012 15.4 Hematocrit (%) Date Value 03/23/2012 44.6 WBC (k/uL) Date Value 03/23/2012 8.23 Platelet Count (k/uL) Date Value 03/23/2012 250 ASSESSMENT: Mr. Bravo is a 36 year old gentleman came for follow up visit regarding hypothyroid, hypogonadism, infertility and few other medical concerns as follows. RECOMMENDATIONS: (E29.1) Hypogonadism in male (primary encounter diagnosis) Comment: pathophysiology AND treatment options discussed. Prescribe testosterone. check level AND Rx as needed. Monitor side effects. Plan: TSH BLD, T4 FREE/FREE THYROX, TESTOSTERONE, FREE AND TOTAL, LUTEINIZING HORMONE, PROLACTIN BLD, CBC, PSA/PROSTSPECAG SCRN, testosterone cypionate (DEPO-TESTOSTERONE) 200 mg/mL injection (E34.9) Low testosterone Comment: pathophysiology AND treatment options discussed. check level AND Rx as needed. Plan: TESTOSTERONE, FREE AND TOTAL, CBC, PSA/PROSTSPECAG SCRN (E03.9) Acquired hypothyroidism Comment: pathophysiology AND treatment options discussed. Monitor TFT. Stable on LT4. continue current Rx. Plan: TSH BLD, T4 FREE/FREE THYROX, CBC, PSA/PROSTSPECAG SCRN (R53.83) Lack of energy Comment: likely multifactorial. Optimize thyroid, Vit D, and testosterone. encourage hydration and regular exercise. 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 Diet, exercise and food supplement discussed. Avoid high TSH. Plan: CBC, PSA/PROSTSPECAG SCRN (E55.9) Vitamin D deficiency Comment: check level AND Rx as needed. Plan: CBC, PSA/PROSTSPECAG SCRN, VITAMIN D 25 HYDROXY (R23.2) Hot flash in male Comment: optimize testosterone Rx. Supportive care. Plan: testosterone cypionate (DEPO-TESTOSTERONE) 200 mg/mL injection Tito Lutz MD June 16, 2017 Referring Provider: YOAN KHALIL [[id number]] Allergies As of Date: 06/16/2017 Noted Allergy Reaction VICODIN (HYDROCODONE-ACETAMINOPHE*11/15/2011 4 - Hives Date Reviewed: 06/16/2017 Reviewed by: Angellina Jael Ma - Fully Assessed Reason for Visit: Thyroid Problem [110] Low Testosterone [2926] Primary Visit Diagnosis:Hypogonadism in male [E29.1] Other Visit Diagnoses:Low testosterone [E34.9] Acquired hypothyroidism [E03.9] Lack of energy [R53.83] Constitutional obesity [E66.8] Vitamin D deficiency [E55.9] Hot flash in male [R23.2] Order(s):TSH BLD [SQTSH] Order #: [id number] FUTURE T4 FREE/FREE THYROX [SQFT4] Order #: [id number] FUTURE TESTOSTERONE, FREE AND TOTAL [SQFTESTO] Order #: [id number] FUTURE LUTEINIZING HORMONE [SQLH] Order #: [id number] FUTURE PROLACTIN BLD [SQPROL] Order #: [id number] FUTURE CBC [SQCBC] Order #: [id number] FUTURE PSA/PROSTSPECAG SCRN [SQPSAS1] Order #: [id number] FUTURE VITAMIN D 25 HYDROXY [SQVITD] Order #: [id number] FUTURE testosterone cypionate (DEPO-TESTOSTERONE) 200 mg/mL injectionINJECT 0.5 ML IM ONCE WEEKLYDisp: 10 mLRfl: 2 Prescriptions as of 06/16/2017 Sig: METHADONE 10 MG TABLET Take 3 tablets by mouth twice* METHADONE 10 MG TABLET Take 3 tablets by mouth twice* LINACLOTIDE 290 MCG CAPSULE Take 1 capsule by mouth once * LEVOTHYROXINE 25 MCG TABLET TAKE 1 TABLET BY MOUTH ONCE D* SERTRALINE 100 MG TABLET Take 200 mg by mouth once genoveva* * K-DUR 20 MEQ TABLET,EXTENDED * Take two tablets three times * * AMILORIDE 5 MG TABLET Take one tablet once a day TESTOSTERONE CYPIONATE 200 MG* INJECT 0.5 ML IM ONCE WEEKLY Problem List As Of Date 06/16/2017 Noted Resolved POSTLAMINECT SYND-LUMBAR [M96.1] INVALID FOR* ABNORMAL COAGULATION PROFILE [R79.1] INVALID FOR* Lumbar spondylosis [M47.816] INVALID FOR* Prescriptions ordered this encounter Disp Refills Start End TESTOSTERONE CYPIONATE 200 MG/ML INT* 10 mL 2 06/16/2017 07/17/2017 Class: Print RX Sig: INJECT 0.5 ML IM ONCE WEEKLY Medications Discontinued During This Encounter testosterone cypionate (DEPO-TESTOST* 10 mL 2 12/16/2016 06/16/2017 Class: Print RX Cmt: This request is for a new prescription for a controlled substance as required by Federal/State law. Sig: INJECT 0.5 ML IM ONCE WEEKLY Disc: Reason for discontinue is not on file. Disposition: Return in about 6 months (around 12/17/2017). Follow-up and Disposition History Recorded Encounter Status:Closed by TITO LUTZ MD on 07/16/17 QUANT PAIN PANEL, Collected: 05/23/2017 Status: F Source: [facility] 1:23 PM [facility] REPOSITORY TYPE CODE TESTS RESULT OUT OF REFERENCE UNITS RANGE LAB UQCANN <16 ng/mL <16 Cannabinoid, Urine Result Comment: Tetrahydrocannabinol carboxylic acid (THCA) is a metabolite of ximmj-1-szpleidyisneeujynqzc which is the main active component of marijuana. LAB UQBNZL <24 ng/mL Benzoylecognine, Ur <24 Result Comment: Benzoylecognine is a metabolite of cocaine. LAB UQACMR <5 ng/mL 6-Acetylmorphine, Ur <5 Result Comment: 6-LEE (6-monoacetylmorphine, also known as 6-acetylmorphine) is a unique metabolite of heroin. Presence of 6-LEE indicates use of heroin. 6-LEE is further metabolized to morphine and absence of 6-LEE does not rule out the use of heroin. LAB UQAMPH <5 ng/mL Amphetamine, Urine <5 LAB UQMAMP <8 ng/mL Methamphetamine, Ur <8 LAB UQBUPR <20 ng/mL Buprenorphine, Ur <20 LAB UQNBUP <20 ng/mL Norbuprenorphine, Ur <20 Result Comment: Norbuprenorphine is the primary active metabolite of buprenorphine. LAB UQMTHD <16 ng/mL Methadone, High Urine >4897 Result Comment: Presence of methadone indicates use of a methadone containing drug. Methadone is metabolized to EDDP (0-yqlzpulthp-8,6-kjkkcinl-6,3-diphenylpyrrolidine). Urine methadone levels vary wide ly depending on metabolism and urine pH. Urine EDDP levels are less affected by pH and are preferable for assessing compliance with methadone therapy. The absence of EDDP and presence of methadone in a urine specimen very likely indicate adult eration by direct addition of methadone to the urine specimen. LAB UQEDDP <6 ng/mL High EDDP, Urine >4178 Result Comment: EDDP (2-jupyugukjd-3,9-aybtciop-7,3-diphenylpyrrolidine) is a metabolite of methadone, and its presence indicates use of a methadone-containing drug. LAB UQTRAM <25 ng/mL Tramadol, Urine <25 LAB UQDTRM <20 ng/mL Desmethyltramadol <20 ,Ur Result Comment: Desmethyltramadol is a metabolite of tramadol. LAB UQFNTL <6 ng/mL Fentanyl, Urine <6 LAB UQNFTL <6 ng/mL Norfentanyl, Urine <6 Result Comment: Norfentanyl is a metabolite of fentanyl. LAB UQCODE <11 ng/mL Codeine, Urine <11 LAB UQMORP <10 ng/mL Morphine, Urine <10 Result Comment: Morphine is a metabolite of codeine and heroin. LAB UQDCDN <5 ng/mL Dihydrocodeine, Ur <5 LAB UQHCOD <8 ng/mL Hydrocodone, Urine <8 Result Comment: Hydrocodone is a metabolite of dihydrocodeine. LAB UQOXYC <5 ng/mL Oxycodone, Urine <5 LAB UQHMOR <5 ng/mL Hydromorphone, Ur <5 Result Comment: Hydromorphone is a metabolite of hydrocodone. LAB UQOXYM <5 ng/mL Oxymorphone, Urine <5 Result Comment: Oxymorphone is a metabolite of oxycodone. LAB UQCREA >19 mg/dL Creatinine, Urine >50 LAB UQPH 4-10 pH, Urine 4-10 LAB UQSPGR 1.005-1.020 Specific [place],Ur 1.005-1.020 LAB UQOXID Negative Oxidants, Urine Negative LAB UQNOTE Note This test is for Medical use only. Result Comment: This test was developed and its performance characteristics determined by [facility] [place] ([facility] It has not been cleared or approved by the FDA. [facility] is regulated under CLIA as qualified to perform high-complexity testing. This test is used for clinical purposes. It should not be regarded as investigational or for research. LAB UQSPQ Specimen Specimen Quality quality results within acceptable limits. Performed By: #### UQNTPP #### [facility] [address] [place] [id number] CNOV Observed: 05/23/2017 Status: COMPLETED Source: [facility] 11:30 AM [facility] REPOSITORY Office Visit (PAINMN) MAN BRAVO ([id number]) 1980 M Date Time Provider Department 05/23/17 11:30 AM PANKAJ CORONA) PAINMN During your visit today, we recorded the following information about you: Pankaj Corona PA-C, MAVIS 05/23/2017 1:01 PM Signed Chronic Pain Management Follow-Up Evaluation Patient of: Dr. Aceves Last seen: 03/24/2017 CC: low back pain Date of visit : May 23, 2017 SUBJECTIVE: Man Morris Bravo presents to [facility] for a follow-up appointment for post laminectomy syndrome. All issues started when patient fell off ladder in 2006 and resulted in herniated disc. He had micro disctomy in 2006, SCS in 2008. Last revision surgery was in 2012. SCS help with leg pain, but not back pain. Plan at last visit 03/24/2017 -Continue current medication regimen as established by Dr. Aceves -Refilled Methadone 30mg BID for 2 months -Refilled Linzess for 2 months -Follow up with Dr. Espinoza/Dr. Miranda as scheduled. -RTC in 2 months for med refill, then in [address] Aceves ? Since the last visit, Man Bravo states the pain has been worsening. Current pain intensity is 7 on a scale of 0 -10. Current stimulator is helpful for pain legs so they are looking for getting more coverage for low back. Worker's comp has approved for an office visit with Dr. Miranda which is now scheduled for July for surgical/SCS eval. Pain Location: lower back and both legs Duration: years. Pain character: pressure Exacerbating factors: sitting, getting up from sitting and walking Alleviating factors: medications Pain Medications: - Opioids: Methadone 30mg BID-current, percocet in the past - NSAIDs: none - Anti-Depressants: Zoloft 200mg QD - Anti-Convulsants: none - Others: lidocaine cream Opioid agreement: Yes, last signed 08/04/15 Pain Panel: 05/05/2016 and is consistent with medication use OARRS report: Reviewed: The patient's OARRS report was reviewed and is consistent with the reported medication use. Pain medications reviewed: Yes Pain Procedures: none Physical Therapy/Home Exercise: No Imaging: IMPRESSION: Negative ? Results-Findings * * *Final Report* * * ? DATE OF EXAM: May 05 2015 11:55AM ? MDX ? 1446 ?- ?XR LUMBAR AP/LAT/OBL/L5S1 ?/ PROCEDURE REASON: POST LAMINECT SYND LUMBAR m96.1 * * * * Physician Interpretation * * * * RESULT: PROCEDURE: ?Lumbar spine INDICATION: ?POST LAMINECTOMY SYND LUMBAR m96.1. TECHNIQUE: ?XR LUMBAR AP/LAT/OBL/L5S1 COMPARISON: ?04/04/2012 and 03/23/2012 FINDINGS: ? There is normal alignment without fracture or subluxation.No significant disc space narrowing is seen. ?No pars defects or significant facet arthrosis is seen. ?Sacroiliac joints are unremarkable. ?Spinal cord stimulators extend into the thoracic region. REVIEW OF SYSTEMS: GENERAL: No weight loss, malaise or fevers. HEENT: Negative for frequent or significant headaches. RESPIRATORY: Negative for cough, wheezing or shortness of breath. CARDIOVASCULAR: Negative for chest pain, leg swelling or palpitations. GI: Negative for abdominal discomfort, blood in stools or black stools or change in bowel habits. MUSCULOSKELETAL: see HPI PSYCH: Negative for sleep disturbance, mood disorder and recent psychosocial stressors. HEMATOLOGY/LYMPHOLOGY: Negative for prolonged bleeding, bruising easily or swollen nodes. NEURO: No history of syncope, paralysis, seizures or tremors. All other reviewed and negative other than HPI. Past Medical History: PAST MEDICAL HISTORY Diagnosis Date - Back pain - PMH - PAST MEDICAL HISTORY OF hypokalemic periodic pyralysis Past Surgical History: PAST SURGICAL HISTORY Procedure Laterality Date - PAST SURGICAL HISTORY OF 11/13 lumbar surgery - PAST SURGICAL HISTORY OF 2008 Spinal cord stimulator Medtronic - [place] ANESTH,DX ARTHROSCOPIC PROC KNEE JOINT 2000, 2001 right torn meniscus x 2 - THUMB 2003 gamekeeper's thumb surg Family History: FAMILY HISTORY Problem Relation Age of Onset - Hypertension Father - Cancer Father basal cell - multiple sclerosis [OTHER] Father also father's sister - Diabetes Maternal Grandfather - Heart Maternal Grandfather - Diabetes Paternal Grandfather - Heart Paternal Grandfather Social History: Social History Marital status: Spouse name: Years of education: 12 Number of children: 2 Occupational History Occupation Employer 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 OBJECTIVE: General appearance: Well appearing, in no acute distress, alert. Psych: Mood and affect appropriate. AANDamp;O x3 Skin: Skin color, texture, turgor normal, no rashes or lesions. Head/face: Atraumatic, normocephalic. Neck: No pain with neck flexion, extension, or lateral flexion. LUNGS: unlabored respirations HEART:Regular rate and rhythm, Normal heart sounds, S1 and S2 and No murmurs. Back: Straight leg raising in the sitting and supine positions is negative to radicular pain. No pain to palpation over the spine or costovertebral angles. Normal range of motion without pain reproduction. Musculoskeletal: Shoulder, hip, sacroiliac and knee provocative maneuvers are negative. Bilateral upper and lower extremity strength is normal and symmetric. No atrophy or tone abnormalities are noted. Gait: normal ASSESSMENT: 36 year old male with with chronic low back pain and bilateral lower extremity pain secondary to post laminectomy syndrome. He currently has a Medtronic paddle lead SCS system in place, implanted by Dr. Espinoza in 2008, which has worked very well for his bilateral lower extremity pain; however, it has not addressed his axial low back pain. He is currently following with Dr. Espinoza for SCS programming as well as exploring different options such as a high frequency Philip stimulator. He is on methadone 30mg BID. Urine pain panel done today, patient states he took his Methadone today. (M96.1) Postlaminectomy syndrome, lumbar region (primary encounter diagnosis) (M47.816) Lumbar spondylosis (F11.90) Chronic, continuous use of opioids PLAN: -Continue current medication regimen as established by Dr. Aceves -Refilled Methadone 30mg BID for 2 months -Refilled Linzess for 2 months -EKG ordered to monitor QTC while on Methadone- to be reviewed next OV -Urine pain panel done today in office, will be reviewed at next office visit -Follow up with Dr. Espinoza/Dr. Miranda as scheduled. -RTC in [address] Aceves for annual office visit/med refill The above plan and management options were discussed at length with patient. Patient is in agreement with the above and verbalized understanding. Pankaj Corona PA-C May 23, 2017 Referring Provider: ILAN ACEVES [[id number]] Allergies As of Date: 05/23/2017 Noted Allergy Reaction VICODIN (HYDROCODONE-ACETAMINOPHE*11/15/2011 4 - Hives Date Reviewed: 01/13/2017 Reviewed by: Shawna Bertrand - Fully Assessed Primary Visit Diagnosis:Postlaminectomy syndrome, lumbar region [M96.1] Other Visit Diagnoses:Lumbar spondylosis [M47.816] Chronic, continuous use of opioids [F11.90] Order(s):[START ON 07/01/2017] methadone (DOLOPHINE) 10 mg tabletTake 3 tablets by mouth twice daily for 30 days. Earliest Fill Date: 07/01/17Disp: 180 tabletRfl: 0 [START ON 06/01/2017] methadone (DOLOPHINE) 10 mg tabletTake 3 tablets by mouth twice daily for 30 days. Earliest Fill Date: 06/01/17Disp: 180 tabletRfl: 0 linaclotide (LINZESS) 290 mcg capTake 1 capsule by mouth once daily.Disp: 30 capsuleRfl: 1 ECG COMPLETE W INTERPRETATION [ECG01] Order #: [id number] FUTURE PAIN PANEL, UR QUANT [SQUQNTPP] Order #: [id number] Prescriptions as of 05/23/2017 Sig: METHADONE 10 MG TABLET Take 3 tablets by mouth twice* METHADONE 10 MG TABLET Take 3 tablets by mouth twice* LINACLOTIDE 290 MCG CAPSULE Take 1 capsule by mouth once * LEVOTHYROXINE 25 MCG TABLET TAKE 1 TABLET BY MOUTH ONCE D* TESTOSTERONE CYPIONATE 200 MG* INJECT 0.5 ML IM ONCE WEEKLY SERTRALINE 100 MG TABLET Take 200 mg by mouth once genoveva* * K-DUR 20 MEQ TABLET,EXTENDED * Take two tablets three times * * AMILORIDE 5 MG TABLET Take one tablet once a day Problem List As Of Date 05/23/2017 Noted Resolved POSTLAMINECT SYND-LUMBAR [M96.1] INVALID FOR* ABNORMAL COAGULATION PROFILE [R79.1] INVALID FOR* Lumbar spondylosis [M47.816] INVALID FOR* Prescriptions ordered this encounter Disp Refills Start End METHADONE 10 MG TABLET 180 * 0 07/01/2017 07/31/2017 Class: Print RX Route: ORAL Sig: Take 3 tablets by mouth twice daily for 30 days. Earliest Fill Date: 07/01/17 METHADONE 10 MG TABLET 180 * 0 06/01/2017 07/01/2017 Class: Print RX Route: ORAL Sig: Take 3 tablets by mouth twice daily for 30 days. Earliest Fill Date: 06/01/17 LINACLOTIDE 290 MCG CAPSULE 30 c* 1 05/23/2017 Route: ORAL Sig: Take 1 capsule by mouth once daily. Medications Discontinued During This Encounter methadone (DOLOPHINE) 10 mg tablet 180 * 0 05/02/2017 05/23/2017 Class: Print RX Route: ORAL Sig: Take 3 tablets by mouth twice daily for 30 days. Earliest Fill Date: 05/02/17 Disc: Reason for discontinue is not on file. methadone (DOLOPHINE) 10 mg tablet 180 * 0 04/02/2017 05/23/2017 Class: Print RX Route: ORAL Sig: Take 3 tablets by mouth twice daily for 30 days. Earliest Fill Date: 04/02/17 Disc: Reason for discontinue is not on file. LINZESS 290 mcg cap 30 c* 0 05/02/2017 05/23/2017 Sig: TAKE 1 CAPSULE BY MOUTH ONCE DAILY. Disc: Reason for discontinue is not on file. Encounter Status:Closed by PANKAJ CORONA on 05/23/17 PROGRESS Observed: 05/23/2017 Status: COMPLETED Source: [place] 11:04 AM [facility] REPOSITORY HNO ID: [id number] Author: Pankaj Mendoza) MAVIS Corona Service: (none) Author Type: Physician Esthetics Instructor Type: Progress Notes Filed: 05/23/2017 1:01 PM Note Text: Chronic Pain Management Follow-Up Evaluation Patient of: Dr. Aceves Last seen: 03/24/2017 CC: low back pain Date of visit : May 23, 2017 SUBJECTIVE: Man Bravo presents to [facility] Department for a follow-up appointment for post laminectomy syndrome. All issues started when patient fell off ladder in 2006 and resulted in herniated disc. He had micro disctomy in 2006, SCS in 2008. Last revision surgery was in 2012. SCS help with leg pain, but not back pain. Plan at last visit 03/24/2017 -Continue current medication regimen as established by Dr. Aceves -Refilled Methadone 30mg BID for 2 months -Refilled Linzess for 2 months -Follow up with Dr. Espinoza/Dr. Miranda as scheduled. -RTC in 2 months for med refill, then in [address] Aceves ? Since the last visit, Man Bravo states the pain has been worsening. Current pain intensity is 7 on a scale of 0 -10. Current stimulator is helpful for pain legs so they are looking for getting more coverage for low back. Worker's comp has approved for an office visit with Dr. Miranda which is now scheduled for July for surgical/SCS eval. Pain Location: lower back and both legs Duration: years. Pain character: pressure Exacerbating factors: sitting, getting up from sitting and walking Alleviating factors: medications Pain Medications: - Opioids: Methadone 30mg BID-current, percocet in the past - NSAIDs: none - Anti-Depressants: Zoloft 200mg QD - Anti-Convulsants: none - Others: lidocaine cream Opioid agreement: Yes, last signed 08/04/15 Pain Panel: 05/05/2016 and is consistent with medication use OARRS report: Reviewed: The patient's OARRS report was reviewed and is consistent with the reported medication use. Pain medications reviewed: Yes Pain Procedures: none Physical Therapy/Home Exercise: No Imaging: IMPRESSION: Negative ? Results-Findings * * *Final Report* * * ? DATE OF EXAM: May 05 2015 11:55AM ? MDX ? 1446 ?- ?XR LUMBAR AP/LAT/OBL/L5S1 ?/ PROCEDURE REASON: POST LAMINECT SYND LUMBAR m96.1 * * * * Physician Interpretation * * * * RESULT: PROCEDURE: ?Lumbar spine INDICATION: ?POST LAMINECTOMY SYND LUMBAR m96.1. TECHNIQUE: ?XR LUMBAR AP/LAT/OBL/L5S1 COMPARISON: ?04/04/2012 and 03/23/2012 FINDINGS: ? There is normal alignment without fracture or subluxation.No significant disc space narrowing is seen. ?No pars defects or significant facet arthrosis is seen. ?Sacroiliac joints are unremarkable. ?Spinal cord stimulators extend into the thoracic region. REVIEW OF SYSTEMS: GENERAL: No weight loss, malaise or fevers. HEENT: Negative for frequent or significant headaches. RESPIRATORY: Negative for cough, wheezing or shortness of breath. CARDIOVASCULAR: Negative for chest pain, leg swelling or palpitations. GI: Negative for abdominal discomfort, blood in stools or black stools or change in bowel habits. MUSCULOSKELETAL: see HPI PSYCH: Negative for sleep disturbance, mood disorder and recent psychosocial stressors. HEMATOLOGY/LYMPHOLOGY: Negative for prolonged bleeding, bruising easily or swollen nodes. NEURO: No history of syncope, paralysis, seizures or tremors. All other reviewed and negative other than HPI. Past Medical History: PAST MEDICAL HISTORY Diagnosis Date - Back pain - PMH - PAST MEDICAL HISTORY OF hypokalemic periodic pyralysis Past Surgical History: PAST SURGICAL HISTORY Procedure Laterality Date - PAST SURGICAL HISTORY OF 11/13 lumbar surgery - PAST SURGICAL HISTORY OF 2008 Spinal cord stimulator Medtronic - [place] ANESTH,DX ARTHROSCOPIC PROC KNEE JOINT 2000, 2001 right torn meniscus x 2 - THUMB 2003 gamekeeper's thumb surg Family History: FAMILY HISTORY Problem Relation Age of Onset - Hypertension Father - Cancer Father basal cell - multiple sclerosis [OTHER] Father also father's sister - Diabetes Maternal Grandfather - Heart Maternal Grandfather - Diabetes Paternal Grandfather - Heart Paternal Grandfather Social History: Social History Marital status: Spouse name: Years of education: 12 Number of children: 2 Occupational History Occupation Employer 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 OBJECTIVE: General appearance: Well appearing, in no acute distress, alert. Psych: Mood and affect appropriate. AANDO x3 Skin: Skin color, texture, turgor normal, no rashes or lesions. Head/face: Atraumatic, normocephalic. Neck: No pain with neck flexion, extension, or lateral flexion. LUNGS: unlabored respirations HEART:Regular rate and rhythm, Normal heart sounds, S1 and S2 and No murmurs. Back: Straight leg raising in the sitting and supine positions is negative to radicular pain. No pain to palpation over the spine or costovertebral angles. Normal range of motion without pain reproduction. Musculoskeletal: Shoulder, hip, sacroiliac and knee provocative maneuvers are negative. Bilateral upper and lower extremity strength is normal and symmetric. No atrophy or tone abnormalities are noted. Gait: normal ASSESSMENT: 36 year old male with with chronic low back pain and bilateral lower extremity pain secondary to post laminectomy syndrome. He currently has a Medtronic paddle lead SCS system in place, implanted by Dr. Espinoza in 2008, which has worked very well for his bilateral lower extremity pain; however, it has not addressed his axial low back pain. He is currently following with Dr. Espinoza for SCS programming as well as exploring different options such as a high frequency Philip stimulator. He is on methadone 30mg BID. Urine pain panel done today, patient states he took his Methadone today. (M96.1) Postlaminectomy syndrome, lumbar region (primary encounter diagnosis) (M47.816) Lumbar spondylosis (F11.90) Chronic, continuous use of opioids PLAN: -Continue current medication regimen as established by Dr. Aceves -Refilled Methadone 30mg BID for 2 months -Refilled Linzess for 2 months -EKG ordered to monitor QTC while on Methadone- to be reviewed next OV -Urine pain panel done today in office, will be reviewed at next office visit -Follow up with Dr. Espinoza/Dr. Miranda as scheduled. -RTC in [address] Aceves for annual office visit/med refill The above plan and management options were discussed at length with patient. Patient is in agreement with the above and verbalized understanding. Pankaj Corona PA-C May 23, 2017 PROGRESS Observed: 03/24/2017 Status: COMPLETED Source: [place] 11:14 AM [facility] REPOSITORY HNO ID: [id number] Author: Pankaj Mendoza) MAVIS Corona Service: (none) Author Type: Physician Esthetics Instructor Type: Progress Notes Filed: 03/24/2017 1:07 PM Note Text: Chronic Pain Management Follow-Up Evaluation Patient of: Dr. Aceves Last seen: 01/17/2017 CC: low back pain Date of visit : March 24, 2017 SUBJECTIVE: Man Bravo presents to [facility] Department for a follow-up appointment for post laminectomy syndrome. All issues started when patient fell off ladder in 2006 and resulted in herniated disc. He had micro disctomy in 2006, SCS in 2008. Last revision surgery was in 2012. SCS help with leg pain, but not back pain. Plan at last visit 01/17/2017 -Continue current medication regimen as established by Dr. Aceves -Refilled Methadone 30mg BID for 2 months -Refilled Linzess for 2 months -Follow up with Dr. Espinoza/Dr. Miranda as scheduled. -RTC in 2 months for med refill Since the last visit, Man Bravo states the pain has been worsening. Current pain intensity is 7 on a scale of 0 -10. Saw Dr. Espinoza last month for possible SCS replacement. Current stimulator is helpful for pain legs so they are looking for getting more coverage for low back. He has been approved from for eval to be done with Dr. Miranda. Pain Location: lower back and both legs Duration: years. Pain character: pressure Exacerbating factors: sitting, getting up from sitting and walking Alleviating factors: medications Pain Medications: - Opioids: Methadone 30mg BID-current, percocet in the past - NSAIDs: none - Anti-Depressants: none - Anti-Convulsants: none - Others: lidocaine cream Opioid agreement: Yes, last signed 08/04/15 Pain Panel: 05/05/2016 and is consistent with medication use OARRS report: Reviewed: The patient's OARRS report was reviewed and is consistent with the reported medication use. Pain medications reviewed: Yes Pain Procedures: none Physical Therapy/Home Exercise: No Imaging: IMPRESSION: Negative ? Results-Findings * * *Final Report* * * ? DATE OF EXAM: May 05 2015 11:55AM ? MDX ? 1446 ?- ?XR LUMBAR AP/LAT/OBL/L5S1 ?/ PROCEDURE REASON: POST LAMINECT SYND LUMBAR m96.1 * * * * Physician Interpretation * * * * RESULT: PROCEDURE: ?Lumbar spine INDICATION: ?POST LAMINECTOMY SYND LUMBAR m96.1. TECHNIQUE: ?XR LUMBAR AP/LAT/OBL/L5S1 COMPARISON: ?04/04/2012 and 03/23/2012 FINDINGS: ? There is normal alignment without fracture or subluxation.No significant disc space narrowing is seen. ?No pars defects or significant facet arthrosis is seen. ?Sacroiliac joints are unremarkable. ?Spinal cord stimulators extend into the thoracic region. REVIEW OF SYSTEMS: GENERAL: No weight loss, malaise or fevers. HEENT: Negative for frequent or significant headaches. RESPIRATORY: Negative for cough, wheezing or shortness of breath. CARDIOVASCULAR: Negative for chest pain, leg swelling or palpitations. GI: Negative for abdominal discomfort, blood in stools or black stools or change in bowel habits. MUSCULOSKELETAL: see HPI PSYCH: Negative for sleep disturbance, mood disorder and recent psychosocial stressors. HEMATOLOGY/LYMPHOLOGY: Negative for prolonged bleeding, bruising easily or swollen nodes. NEURO: No history of syncope, paralysis, seizures or tremors. All other reviewed and negative other than HPI. Past Medical History: PAST MEDICAL HISTORY Diagnosis Date - Back pain - PMH - PAST MEDICAL HISTORY OF hypokalemic periodic pyralysis Past Surgical History: PAST SURGICAL HISTORY Procedure Laterality Date - PAST SURGICAL HISTORY OF 11/13 lumbar surgery - PAST SURGICAL HISTORY OF 2008 Spinal cord stimulator Medtronic - [place] ANESTH,DX ARTHROSCOPIC PROC KNEE JOINT 2000, 2001 right torn meniscus x 2 - THUMB 2003 gamekeeper's thumb surg Family History: FAMILY HISTORY Problem Relation Age of Onset - Hypertension Father - Cancer Father basal cell - multiple sclerosis [OTHER] Father also father's sister - Diabetes Maternal Grandfather - Heart Maternal Grandfather - Diabetes Paternal Grandfather - Heart Paternal Grandfather Social History: Social History Marital status: Spouse name: Years of education: 12 Number of children: 2 Occupational History Occupation Employer 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 OBJECTIVE: General appearance: Well appearing, in no acute distress, alert. Psych: Mood and affect appropriate. AANDO x3 Skin: Skin color, texture, turgor normal, no rashes or lesions. Head/face: Atraumatic, normocephalic. Neck: No pain with neck flexion, extension, or lateral flexion. LUNGS: unlabored respirations HEART:Regular rate and rhythm, Normal heart sounds, S1 and S2 and No murmurs. Back: Straight leg raising in the sitting and supine positions is negative to radicular pain. No pain to palpation over the spine or costovertebral angles. Normal range of motion without pain reproduction. Musculoskeletal: Shoulder, hip, sacroiliac and knee provocative maneuvers are negative. Bilateral upper and lower extremity strength is normal and symmetric. No atrophy or tone abnormalities are noted. Gait: normal ASSESSMENT: 36 year old male with with chronic low back pain and bilateral lower extremity pain secondary to post laminectomy syndrome. He currently has a Medtronic paddle lead SCS system in place, implanted by Dr. Espinoza in 2008, which has worked very well for his bilateral lower extremity pain; however, it has not addressed his axial low back pain. He is currently following with Dr. Espinoza for SCS programming as well as exploring different options such as a high frequency Philip stimulator. He is on methadone 30mg BID. He had issues filling the January prescription until mid February due to lack of Methadone quantity at his local [facility] pharmacy and was unable to fill the February script. (M96.1) Postlaminectomy syndrome, lumbar region (primary encounter diagnosis) (M47.816) Lumbar spondylosis PLAN: -Continue current medication regimen as established by Dr. Aceves -Refilled Methadone 30mg BID for 2 months -Refilled Linzess for 2 months -Follow up with Dr. Espinoza/Dr. Miranda as scheduled. -RTC in 2 months for med refill, then in [address] Aceves The above plan and management options were discussed at length with patient. Patient is in agreement with the above and verbalized understanding. Pankaj Corona PA-C March 24, 2017 ALLERGIES ALLERGIES DATE TYPE / CODE NAME / CODE REACTION SEVERITY SOURCE 10/20/2017 Drug hydrocodone/ Unknown Unknown [facility]160 [id number](R [facility] 68776(SNOMED XNORM) Repository CT) 10/20/2017 Drug acetaminophe Unknown Unknown [facility] All[facility]/4160 n/[id number] Hospital 99344(SNOMED (RXNORM) Repository CT) 11/15/2011 DRUG/[id number] HYDROCODONE- HIVES [facility] 03(SNOMED ACETAMINOPHE [facility]) N Repository ENCOUNTERS ENCOUNTERS ADMIT/DISCHARGE ACCOUNT NUMBER ADMITTING ENCOUNTER LOCATION SOURCE CLASS 01/20/2018/01/26/20 [id number] Ambulatory [address] Repository 01/19/2018 [id number] Ambulatory [facility] ding:RAD Repository 12/06/2017/12/11/19 [id number] Ambulatory [address] ding:DROP [facility] Repository 12/06/2017/12/07/19 [id number] Ambulatory BBuilding:[address] Repository 12/01/2017/12/03/19 [id number] [facility]id[facility] [facility] ding:PCURoom Repository : NOO727Sxr: 1 12/01/2017 [id number] Isidro, Ambulatory BMSBuilding: Ayala Anand BMS.[facility] Repository 12/01/2017 [id number] Isidro, Ambulatory BMSBuilding: Ayala Metcalfs F BMS.Formerly [facility] Repository 12/01/2017/12/02/19 [id number] Emergency BBuilding:ER Erinn [address] [place] [address] Repository 11/21/2017/11/23/19 [id number] Ambulatory [address] Repository 10/20/2017 [id number] Ambulatory [facility] ding:RAD Repository 09/26/2017/09/28/19 [id number] Ambulatory [address] Repository 08/30/2017/08/31/19 [id number] Ambulatory [address] Repository 08/30/2017/09/01/19 [id number] Ambulatory [address] Repository 07/27/2017/08/05/19 [id number] Ambulatory [address] Repository 07/25/2017/07/28/19 [id number] Ambulatory [address] Repository 06/23/2017/06/24/19 [id number] Ambulatory [address] Repository 06/20/2017/06/21/19 [id number] Ambulatory [address] Repository 06/16/2017/06/17/19 [id number] Ambulatory [address] Repository 05/23/2017/05/24/19 [id number] Ambulatory [address] Repository 03/24/2017/03/28/19 [id number] Ambulatory [address] Repository PAYERS PAYERS ENCOUNTER GUARANTOR PAYER SUBSCRIBER SOURCE 01/19/2018 MAN A Primary MAN A Cade [id number] Insurance:AETNAPolicy NICKLESDOB: [facility] [place]: [id number] [id number] Repository [address]Wwu: 330) Date:3429-51-47XA [phone] () [id number] KENYA MURO [id number]: 01/19/2018 Secondary NOT GIVENUNK Ayala Insurance:SELF PAY [facility] Number: Effective Repository Date:2018-01-10 12/06/2017 MAN A Primary MAN A [facility] NICKLESDOB: Insurance:AETNA OF [place] NICKLESDOB: [facility] E AECPolicy Number: [id number] [facility] [id number] [place], [place] Date:2017-12-06 - [place], [place] [address]Tcu: [phone] [id number]: Name:[facility] Ana M [id number] [phone] ()Tel: [phone]) KENYA Muro () (WP) [phone]: [phone] 12/06/2017 MAN A Primary MAN A [facility] NICKLESDOB: Insurance:AETNA OF [place] NICKLESDOB: [facility] E AECPolicy Number: [id number] [facility]ository [facility] [id number] E [place], [place] Date:2017-12-06 - [place], [place] [address]Swu: [phone] [id number]: Name:[facility] Ana M [id number] ()Tel: [phone]) KENYA Muro (HP) (WP) [phone]: [phone] 12/01/2017 MAN A Primary MAN A Ayala [id number] E Insurance:AETNAPolicy NICKLESDOB: [facility] [place] Number: [id number], [place] [id number] Repository [address]Fef: [phone]) Date:1112-51-46RH [phone] () [id number] KENYA MURO [id number]: 12/01/2017 Secondary NOT GIVENUNK Ayala Insurance:SELF PAY [facility] Number: Effective Repository Date:2017-12-01 12/01/2017 MAN A Primary MAN A Ayala [id number] E Insurance:AETNAPolicy NICKLESDOB: [facility] [place] Number: [id number], [place] [id number] Repository [address]Prq: [phone]) Date:7349-19-47AV [phone] () [id number] TESSYKENYA [address]NM: 12/01/2017 Secondary NOT GIVENUNK Ayala Insurance:SELF PAY [facility] Number: Effective Repository Date:2017-12-01 12/01/2017 MAN A Primary MAN A Ayala [id number] E Insurance:AETNAPolicy NICKLESDOB: [facility] [place] Number: [id number] [id number] Repository [address]Fcc: ([phone]) Date:5171-89-59XT [phone] () [id number] KENYA MURO [address]WA: 12/01/2017 Secondary NOT GIVENUNK Ayala Insurance:SELF PAY [facility] Effective Repository Date:2017-12-01 12/01/2017 MAN A Primary MAN A [facility] NICKLETYDOB: Insurance:AETJOSE [facility] NICKLESDOB: [facility] E AECPolicy Number: [id number] Repository [place] [id number] E [place], [place] Date:2017-12-01 - [place], [place] [address]Hxe: [phone] [id number]: Name:[employer] SUPERVISORTiarra Viramontes [id number] ()Tel: [phone]) KENYA Muro () (WP) [phone]: (WP [phone] 10/20/2017 [facility] Insurance:AETNAGarnet HealthB: [facility] Number: [id number], [place] [id number] Repository [address]Smu: [phone]) Date:9681-71-95RX [phone] () [id number] KENYA MURO [id number]: 10/20/2017 Secondary NOT GIVENUNK Ayala Insurance:SELF PAY [facility] Number: Effective Repository Date:2017-10-13
== END ==
PROVIDERS: Referring Provider Orthopaedic Surgery; Visit Provider Orthopaedic Surgery
DX: M75.41 Impingement syndrome of right shoulder (principal); G89.29 Other chronic pain
CPT/HCPCS: 23350; 73040; 73200; A9577; Q9967

== ENCOUNTER 2018-10-06 08:00 | Outpatient (RCR) | payer OTHER, SELFPAY ==
--- NOTE | 2018-05-03 19:26 | HP.PTEVAL ---
Patient's Visit Information JENNIFER RODRIGUEZ is a 37 year old M referred to Physical Therapy by SOLIS COOPER with a diagnosis of Bicep Tendodesis, slight RC tear Repar 04-13-18. Date of Evaluation: 05/03/18 Physical Therapist: PRUDENCIO Carballo - Visit Plan Frequency: 2-3x /Week Duration: 3 Months Plan: 2-3X/ week to FOLLOW PROTOCOL (filed in brown folder) for PROM, Scapular AROM, and progressing ROM and strength per protocol - Subjective Findings: Pt has surgery on 04-13-18 down at [facility]...Dr Campa. They did a minor labral and RC repar and bicep tenodesis. He is using his sling until sees Dr Campa which is May 29. They found a bacteria in the shoulder and not sure how the bacteria got in the shoulder. He had prior surgery on Nov 30, 2017 (by Dr Rubalcava)..... He left a SLAP tear and a bicep tendon tear. During therapy he was doing somthings on his own and he felt something tear and it was intense. Saw next day and did a CT scan and could not find anything different and they treated him with anti-inflammatories and then saw another DR. He can not have MRI's and it was tough to read a CT scan. His pain has been about a 6/10 and he does not want to take the oxy. He is sleeping in a recliner. He is R handed. 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 more paperwork, driving and sitting. He is back to work. He is not sleeping throught the night. - Pain R shoulder pain Pain Intensity (Out of 10): 6 - Objective PROM: R Shoulder.... ER Neutral, Abd 87 degrees, flexion 90 degrees. Shoulder scapular retraction on the L was very limited in the sling. Instructed pt in pendulums and explained onlly wrist movement at this time is allowed. - Goals Goal 1:: I HEP Goal Time Frame: 4-6 Weeks Goal 2:: Increase R shoulder PROM to 160 degrees elevation and 40 degrees ER Goal Time Frame: 4-6 Weeks Goal 3:: Increase R shoulder strength to 4/5 Goal Time Frame: 12-16 Weeks Goal 4:: Decrease overall pain to 0/10 with ADL's Goal Time Frame: 6-8 Weeks - Rehabilitation Potential Rehabilitation Potential: Good - Anticipated Interventions Patient/Client Instruction: Educate patient on: Condition, Plan of Care For the Purpose of:: To decrease pain, To decrease swelling/inflammation, To increase ROM, To improve nutrient delivery to tissue, To improve muscle performance and motor function, To improve ability to perform ADL's, To increase tolerance to activity/condition/position, To improve performance and independence with ADL's, To decrease level of supervision to perform tasks, To improve ability of physical actions for home/community/work/leisure, To improve gait and locomotor functions, To improve health of tissue, To increase flexibility/ROM Therapeutic Exercise to Include: Strength training, Postural training, Flexibilty training, Passive ROM, Active ROM, Scapular Strength/Stabilization For the Purpose of:: To decrease pain, To decrease swelling/inflammation, To increase ROM, To improve nutrient delivery to tissue, To improve muscle performance and motor function, To improve ability to perform ADL's, To increase tolerance to activity/condition/position, To decrease level of supervision to perform tasks, To improve gait and locomotor functions, To improve health of tissue, To decrease soft tissue restriction, To increase flexibility/ROM Manual Therapy Techniques to Include: Passive ROM For the Purpose of:: To increase ROM IF ES: Yes Cryotherapy (ice pack, ice massage): Yes For the Purpose of:: To decrease pain, To decrease swelling/inflammation, To improve nutrient delivery to tissue Thank you for the opportunity to evaluate your patient. For Medicare and Medicare HMO plans, please review the plan of care and approve it. It will need to be FAXED BACK to us at [phone] for Medicare purposes. For Medicare only, by signing this I certify the plan of care. Please let me know if there are questions or concerns regarding this plan of care. Physician Signature: Date:
--- NOTE | 2018-11-20 09:49 | HP.PT.NRP ---
HP - Discharge Summary (1) - Patient Information JENNIFER RODRIGUEZ was seen in my office for initial evaluation on 05/03/18. The following Plan of Care was established for this patient: Initial Frequency: 2-3x /Week Initial Duration: 3 Months - Anticipated Interventions Patient/Client Instruction: Educate patient on: Condition, Plan of Care For the Purpose of:: To decrease pain, To decrease swelling/inflammation, To increase ROM, To improve nutrient delivery to tissue, To improve muscle performance and motor function, To improve ability to perform ADL's, To increase tolerance to activity/condition/position, To improve performance and independence with ADL's, To decrease level of supervision to perform tasks, To improve ability of physical actions for home/community/work/leisure, To improve gait and locomotor functions, To improve health of tissue, To increase flexibility/ROM Therapeutic Exercise to Include: Strength training, Postural training, Flexibilty training, Passive ROM, Active ROM, Scapular Strength/Stabilization For the Purpose of:: To decrease pain, To decrease swelling/inflammation, To increase ROM, To improve nutrient delivery to tissue, To improve muscle performance and motor function, To improve ability to perform ADL's, To increase tolerance to activity/condition/position, To decrease level of supervision to perform tasks, To improve gait and locomotor functions, To improve health of tissue, To decrease soft tissue restriction, To increase flexibility/ROM Manual Therapy Techniques to Include: Passive ROM For the Purpose of:: To increase ROM IF ES: Yes Cryotherapy (ice pack, ice massage): Yes For the Purpose of:: To decrease pain, To decrease swelling/inflammation, To improve nutrient delivery to tissue This patient was last seen in our office 10/12/18. Pertinent comments regarding their Physical therapy will appear below: DC PT to HEP At this point I will be discontinuing this patient from physical therapy. I would be happy to see this patient again in the future if found appropriate by the physician. Thank you! Sharmin Calles, MPT
== END 2018-10-06 17:00 | disposition home or self-care (01) ==
LOC: PT 08:00
DX: M75.21 Bicipital tendinitis, right shoulder (principal); Z98.890 Other specified postprocedural states
CPT/HCPCS: 97014; 97110; 97140; 97161; G0283

== ENCOUNTER 2023-02-04 11:38 | Outpatient (CLI) | payer OTHER, SELFPAY ==
--- NOTE | 2023-02-04 11:37 | RAD_ITS ---
EXAM: XR LEFT SHOULDER COMPLETE, 2 OR MORE VIEWS CLINICAL INDICATION: R/O BICEP OR CUFF TEAR TECHNIQUE: Two or more views of the left shoulder. COMPARISON: No relevant prior studies available. FINDINGS: BONES/JOINTS: Post fluoroscopic images of the left shoulder demonstrates contrast in the shoulder joint. Extension of the contrast to the AC joint is not visualized. No acute fracture. No subluxation. Normal alignment. No sclerotic or destructive changes observed. SOFT TISSUES: Unremarkable. No soft tissue swelling or gas. No radiopaque foreign body. RAD/Shoulder min 2 Views IMPRESSION: No evidence for rotator cuff tear. Electronically Signed: Rigoberto Nobles MD at 14:30 EST ,
--- NOTE | 2023-02-04 11:41 | CT_ITS ---
STUDY: CT ARTHROGRAM OF LEFT SHOULDER REASON FOR EXAM: Male, 42 years old. Evaluate for biceps tendon tear. RADIATION DOSAGE (If Supplied By Facility): CTDIvol = ( 39.80 ) mGy, DLP = ( 1046.78 ) mGycm TECHNIQUE: The patient was scanned in a multi detector CT scanner. High resolution transaxial imaging was performed after administration of a solution containing Omnipaque contrast. Coronal and sagittal reconstruction and bone and soft tissue algorithm images were provided for interpretation. Individualized dose optimization techniques were used for this CT. COMPARISON: Shoulder arthrogram x-ray dated February 04, 2023. FINDINGS: Adequate distention of the joint with contrast. Normal glenohumeral articulation. Normal glenoid rim, neck and visualized scapula. Normal humeral head, neck and tuberosities. Normal biceps tendon without evidence of biceps tendon tear. Normal glenoid labrum. Normal visualized lateral clavicle. Mild AC joint hypertrophy with minimal narrowing of the subacromial space. There is a Type II morphology (curved), with a neutral orientation. Normal visualized muscles and soft tissue structures. CT/Extremity Upper WITH Contrast IMPRESSION: Mild AC joint hypertrophy with minimal narrowing of the subacromial base. Biceps tendon intact. No other abnormality. Electronically Signed: Carlos Vieira MD at 13:22 EST ,
[2023-02-04] MEDS: Lidocaine 2% (5ml sdv) 5 ML VIAL.MPF INFILT (12:10)
--- NOTE | 2023-02-04 13:22 | PCM.OP.PRO ---
Procedure Report Date of Procedure: 02/04/23 Assessment & Plan Assessment/Plan (1) Left shoulder pain: QUALIFIERS: Chronicity: unspecified Qualified Code(s): M25.512 - Pain in left shoulder PLAN: PROCEDURE: Arthrogram- left shoulder ORDERING PROVIDER: Dr. Valladares INDICATION: Male, 42 years old. Left shoulder pain. 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 Informed consent was obtained. TECHNIQUE: The patient was positioned supine. The overlying skin was prepped and draped in the usual sterile fashion. Following injection of local anesthetic with 2% lidocaine and under direct fluoroscopic guidance, a 22-gauge spinal needle was placed into the left glenohumeral space. 2 cc of Isovue 300 was injected for confirmation. Following this, 10 cc of arthrogram contrast (gadoterate, iopamidol, lidocaine, and epinephrine), compounded by pharmacy, was injected. All elements of maximal sterile barrier technique followed. Patient tolerated procedure well. IMPRESSION: Successful fluoroscopic guided arthrogram of the left shoulder. Procedures Radiology Radiology Xray Procedures: 06803 Arthrogram Shoulder
== END 2023-02-04 23:59 | disposition home or self-care (01) ==
LOC: RAD 11:38
PROVIDERS: Referring Provider Orthopaedic Surgery Sports Medicine; Visit Provider Orthopaedic Surgery Sports Medicine
DX: M25.512 Pain in left shoulder (principal)
CPT/HCPCS: 23350; 73030; 73040; 73201; Q9967

== ENCOUNTER 2023-03-10 12:36 | Observation (INO) | payer OTHER, SELFPAY ==
[2023-03-01 09:33] LABS: Hematocrit 49.2 % (40-54); Hemoglobin 16.9 g/dL (13.0-16.5); Mean Corp Hgb Conc 34.3 g/dL (32-36); Mean Corpuscular Hgb 31.8 pg (27.0-32.0); Mean Corpuscular Volume 92.5 fL (80-94); Mean Platelet Vol. 8.5 fl (6.2-12.0); Platelet Count 272 K/mm3 (150-450); RBC Distribution Width CV 13.3 % (11.6-14.6); RBC Distribution Width SD 44.6 fl (35.1-43.9); Red Blood Count 5.32 M/mm3 (4.6-6.2)
[2023-03-01 11:05] LABS: Anion Gap 6 (5-15); BUN 9 mg/dL (7-18); BUN/Creat Ratio 8.3 RATIO (10-20); Calcium,Total 10.1 mg/dL (8.5-10.1); Chloride 106 mmol/L (98-107); Creatinine, Serum 1.09 mg/dL (0.70-1.30); EST Glomerular Filtration Rate 79 mL/min (>60); Est Glom Filt Rate - Afr Amer 95 mL/min (>60); Glucose 107 mg/dL (74-106); Potassium 3.4 mmol/L (3.5-5.1); Sodium Level 138 mmol/L (136-145); Thyroid Stim Hormone (TSH) 2.01 uIU/mL (0.358-3.74)
[2023-03-10] VITALS (14 sets, daily range): BP systolic 103–144; BP diastolic 61–84; PULSE 82–121; RESP 15–20; TEMP 36.4–37.2; O2SAT 92–98; BMI 34.5
--- OUTSIDE RECORDS SUMMARY | 2023-03-10 07:54 | XMS RPT_ITS | CCD ---
Author Name Unknown Address [address] [place] [address] Organization [facility] Care Team Providers Care Java Web Architect Name Role Phone Booker SMITH, Aron Ojeda Unavailable Sherri Patterson DO Primary Care Provider Sherri Patterson DO Primary Care Provider REFUGIO WANG, DR POLANCO Primary Care Physician [phone] Sherri Patterson DO Primary Care Provider REFUGIO WANG, DR POLANCO Attending Unavailable REFUGIO WANG, DR POLANCO Primary Care Unavailable REFUGIO WANG, DR POLANCO Attending Unavailable REFUGIO WANG, DR POLANCO Primary Care Unavailable SHERRI PATTERSON Primary Care Unavailable SHAKILA VIDALES Attending Unavailable SHERRI PATTERSON Primary Care Unavailable SHAKILA VIDALES Referring Unavailable SHAKILA VIDALES Attending Unavailable SHERRI PATTERSON Primary Care Unavailable ILAN ACEVES Referring Unavailable SHAKILA VIDALES Attending Unavailable SHERRI PATTERSON Primary Care Unavailable ILAN ACEVES Referring Unavailable SHAKILA VIDALES Attending Unavailable Allergies Allergy Classification Reported Allergen(s) Allergy Type Date of Onset Reaction(s) Facility (1 source) Acetaminophen / HYDROcodone Drug Allergy 9 hives [facility] Work Phone: (1 source) Corticosteroids drug allergy 9 decreases potassium [facility] Work Phone: (8 sources) Acetaminophen / HYDROcodone; Translations: [acetaminophen-hydr ocodone] Drug Allergy 2 Hives [facility] (7 sources) Glucocorticoid preparation; Translations: [CORTICOSTEROIDS (GLUCOCORTICOIDS)] Drug Allergy 9 Other: See Comments [facility] (1 source) Corticosteroids and derivatives; Translations: [corticosteroids] Drug allergy Finding of potassium level (finding) [facility] [place] Medications Current Medications Medication Drug Class(es) Dates Sig (Normalized) Sig (Original) aMILoride hydrochloride 5 mg oral tablet (8 sources) Potassium-sparin g Diuretic Start: 02-05-2022 take 2 tablets by mouth once daily aMILoride 5 mg oral tablet See Instructions, TAKE 2 TABLETS BY MOUTH EVERY DAY, # 180 tab(s), 1 Refill(s), Pharmacy: [id number], 187, cm, 02/05/22 9:10:00 EST, Height, kg, 02/05/22 9:10:00 EST, Dosing Weight Start Date: 02/05/22 Status: Ordered Completed/Discontinued Medications Medication Drug Class(es) Dates Sig (Normalized) Sig (Original) TESTOSTERONE 200 MG/ML INTRAMUSCULAR SOLUTION (TESTOSTERONE ) (1 source) Start: 03-07-2018 inject 0.5 mL by intramuscular injection every week TESTOSTERONE 200 MG/ML INTRAMUSCULAR SOLUTION (TESTOSTERONE ) 0.5 ml injection once per week Adriana Novoa [employer] acetaminophen 325 mg oral tablet (2 sources) Start: 06-05-2020 End: 11-13-2021 take 2 tablets by mouth every four hours as needed acetaminophen (TYLENOL) 325 mg tablet Take 2 tablets by mouth every 4 hours as needed. 0 06/05/2020 11/13/2021 Discontinued Problems Active Problems Problem Classification Problem Date Documented Date Episodic/Chronic Anxiety disorders (1 source) Generalized anxiety disorder 07-31-2020 Chronic Cardiac dysrhythmias (6 sources) Ventricular tachycardia; Translations: [Ventricular tachycardia] Onset: 1 06-04-2020 Chronic Disorders of lipid metabolism (1 source) Hypertriglyceridemia 07-30-2021 Chronic Fluid and electrolyte disorders (7 sources) Hypokalemia; Translations: [Hypokalemia] 06-04-2020 Episodic Mood disorders (6 sources) Depressive disorder; Translations: [Depression] 06-04-2020 Chronic Other connective tissue disease (1 source) Bicipital tendinitis, right shoulder; Translations: [Bicipital tendinitis, right shoulder] Onset: 9 03-08-2018 Episodic Other endocrine disorders (1 source) Male hypogonadism 07-31-2020 Chronic Other nervous system disorders (1 source) 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 Other nervous system disorders (1 source) Other chronic pain; Translations: [Chronic bilateral low back pain with bilateral sciatica] Onset: 3 Chronic Residual codes; unclassified (1 source) Chronic back pain 12-01-2017 Episodic Residual codes; unclassified (1 source) Finding related to substance use 07-30-2021 Episodic Spondylosis; intervertebral disc disorders; other back problems (20 sources) Lumbar post-laminectomy syndrome; Translations: [Postlaminectomy syndrome, not elsewhere classified] Onset: 8 Chronic Thyroid disorders (7 sources) Hypothyroidism; Translations: [Hypothyroidism, unspecified] 06-04-2020 Chronic Past or Other Problems Problem Classification Problem Date Documented Date Episodic/Chronic Other nervous system disorders (6 sources) Acute postoperative pain; Translations: [Other acute postprocedural pain] Onset: 06-05-2020 06-05-2020 Episodic Other screening for suspected conditions (not mental disorders or infectious disease) (6 sources) Coag./bleeding tests abnormal; Translations: [Abnormal coagulation profile] Onset: 03-29-2008 03-29-2008 Episodic Spondylosis; intervertebral disc disorders; other back problems (6 sources) Chronic low back pain; Translations: [Lumbago with sciatica, left side] Onset: 05-05-2022 Episodic Substance-related disorders (5 sources) Continuous opioid dependence; Translations: [Opioid use, unspecified, uncomplicated] Onset: 05-05-2022 Episodic Unclassified (1 source) Problem Results Test Name Value Interpretation Reference Range Facil ity Vital Signs Date Time Vital Sign Value Performing Clinician Facility NEGATED: Highlighted [id number] 12:59-0500 BMI (Body Mass Index) 34.03 kg/m2 Misael Urbina AT [facility] Work Phone: NEGATED: Highlighted [id number] 12:59-0500 BP Diastolic 77 mm[Hg] Misael Urbina AT [facility] Work Phone: NEGATED: Highlighted [id number] 12:59-0500 BP Systolic 109 mm[Hg] Misael Urbina AT [facility] Work Phone: NEGATED: Highlighted [id number] 12:59-0500 Height 185.42 cm Misael Urbina AT [facility] Work Phone: NEGATED: Highlighted [id number] 12:59-0500 Height 185 cm Misael Urbina AT [facility] Work Phone: NEGATED: Highlighted [id number] 12:59-0500 Pulse (Heart Rate) 78 /min Misael Urbina AT [facility] Work Phone: NEGATED: Highlighted [id number] 12:59-0500 Weight 116.58 kg Misael Urbina AT [facility] Work Phone: NEGATED: Highlighted [id number] 12:59-0500 Weight 117 kg Misael Urbina AT [facility] Work Phone: Encounters Encounter Date Encounter Type Care Provider Facility Start: 02-16-2023 End: 02-16-2023 ambulatory SHERRI PATTERSON Facility:[facility] Start: 11-16-2022 End: 11-17-[address] SHERRI PATTERSON DO Facility:[facility] Start: 11-03-2022 End: 11-03-2022 ambulatory Shakila Vidales [employer] Work Phone: Pain Management Procedures Date Procedure Procedure Detail Performing Clinician Start: 06-03-2020 Miscellaneous (quali fier value) DR SHERRI PATTERSON DO Plan of Treatment Date Care Activity Detail Author Start: 10-08-2022 Influenza vaccination C [facility] Start: 11-12-2021 End: 01-12-2022 PAIN PANEL, UR QUANT [facility] Work Phone: Immunizations Immunization Date Immunization Notes Care Provider Kelton mendiola 07-09-2021 SARS-CoV-2 (COVID-19 ) Ad26 vaccine, recombinant DR SHERRI PATTERSON DO [facility] 02-21-2017 influenza virus vaccine, unspecified formulation Shakila Vidales [employer] Work Phone: [facility] 12-12-2012 zoster vaccine, live DR ELLEN PATTERSON DO [facility] 08-25-2012 tetanus toxoid, reduced diphtheria toxoid, and acellular pertussis vaccine, adsorbed DR SHERRI PATTERSON DO [facility] No information available. Misael Urbina AT [facility] Work Phone: Payers Date Payer Category Payer Unknown [id number] 2022 Private Health Insurance [id number] 2021 Private Health Insurance [id number] 2019 Medicaid [id number] 2006 Unknown [id number] 2006 Unknown [id number] 1980 Unknown [id number] 1980 Unknown [id number] Social History Date Type Detail Facility Start: 03-07-2018 End: 03-07-2018 Assertion Unknown if ever smoked [facility] Work Phone: Start: 02-16-2019 End: 05-26-2020 Tobacco smoking status NHIS Ex-smoker [facility] History of tobacco use Current smoker [facility] Start: 05-26-2020 Tobacco use and exposure User of smokeless tobacco [facility] History of tobacco use Chews Tobacco [facility] Start: 07-08-2021 Alcohol intake Current drinke r of alcohol (finding) [facility] Start: 07-08-2021 End: 08-05-2022 Alcohol intake [facility] Start: 07-08-2021 History SDOH Alcohol Comment social [facility] Start: 1980 Sex Assigned At Male C [facility] Start: 11-02-2021 End: 11-12-2021 Exposure to SARS-CoV-2 (event) Not sure [facility] Start: 07-08-2021 End: 08-05-2022 Tobacco use panel [facility] Adult Depression Screening Assessment 0 [facility] Start: 12-10-2019 Gender identity Identifies as male gender (finding) [facility] Start: 12-10-2019 Sexual orientation Heterosexual (fin ding) [facility] NEGATED: Highlighted rowStart: 03-07-2018 End: 03-07-2018 Tobacco use and exposure Former smoker [facility] Work Phone: Medical Equipment Procedure Code Equipment Code Equipment Origin al Text Equipment Identifier Dates [facility] [id number] Start: 06-03-2020 Lwo-Zi-V-Kind Implant - [id number] Start: 04-04-2012 Clinical Notes 10-21-2021 to 02-16-2023 Shakila Vidales APRN.CNP - 11/03/2022 1:09 PM EDTTelephone Encounter - Sujata Lee RN - 08/05/2022 3:13 PM Lisa Vidales APRN.CNP - 08/05/2022 1:10 PM EDT Note Date & Type Note Facility 02-16-2023 Note HNO ID: [id number] Author: SHAKILA VIDALES APRN.CNP Service: ? Author Type: Nurse Practitioner Type: Progress Notes Filed: 02/25/2023 13:00 Note Text: Chronic Pain Clinic Follow-Up Evaluation Date: February 16, 2023 - 2:13 PM Chief Complaint: Chronic Pain Last Annual Visit: 06/11/2020 SUBJECTIVE: Man Bravo is a 42 year old who presents to [facility] Pain Management Department for a follow up appointment for chronic pain. The plan from the last visit on 11/03/2022 was: Continue current treatment plan established by Dr. Aceves 2. The following approved medication requests have been transmitted electronically. Signed Prescriptions Disp Refills methadone (DOLOPHINE) 5 mg tablet 60 tablet 0 Sig: Take 1 tablet by mouth twice daily for 30 days. Do not start before April 20, 2021. REA Class: C-II ELVIRA: No methadone (DOLOPHINE) 5 mg tablet 60 tablet 0 Sig: Take 1 tablet by mouth twice daily as needed for pain for up to 30 days. Do not start before May 20, 2021. REA Class: C-II ELVIRA: No methadone (DOLOPHINE) 5 mg tablet 60 tablet 0 Sig: Take 1 tablet by mouth twice daily for 30 days. Do not start before June 19, 2021. REA Class: C-II ELVIRA: No 3. RTC in 3 months for medication refill and follow-up 4. Pain panel obtained 11/12/21 Since the last visit, shoulder surgery on 03/10/23 for bicep/shoulder problems. Patient denies any issues with his medications at this time. Pain Location: lower back Duration: years. Symptoms have been persistent. Pain character: aching, sharp and shooting Current pain intensity (on a scale of 0-10/10): 5 Best pain intensity (on a scale of 0-10/10): 4 Worst pain intensity (on a scale of 0-10/10): 9 Exacerbating factors: activity Alleviating factors: rest, SCS Sleep disturbance? Yes Previous pain treatments: physical therapy, medications, TENS, massage, surgery, injections Current Outpatient Medications: Current Outpatient Medications Medication Sig [START ON 03/11/2023] methadone (DOLOPHINE) 5 mg tablet Take 1 tablet by mouth every 12 hours as needed for pain for up to 30 days. Do not start before March 11, 2023. [START ON 04/10/2023] methadone (DOLOPHINE) 5 mg tablet Take 1 tablet by mouth every 12 hours as needed for pain for up to 30 days. Do not start before April 10, 2023. [START ON 05/10/2023] methadone (DOLOPHINE) 5 mg tablet Take 1 tablet by mouth every 12 hours as needed for pain for up to 30 days. Do not start before May 10, 2023. naloxone (NARCAN) 0.4 mg/mL soln Inject 1 mL intravenously as needed. sertraline (ZOLOFT) 100 mg tablet Take 1 tablet by mouth once daily. levothyroxine (SYNTHROID) 25 mcg tablet Take 1 tablet by mouth once daily. testosterone cypionate (DEPO-TESTOSTERONE) 200 mg/mL injection INJECT 0.5 ML IM ONCE WEEKLY potassium chloride(K-DUR 20 MEQ TAB) Take by mouth once daily. AMILORIDE 5 MG TAB Take one tablet once a day No current facility-administered medications for this visit. Current Anticoagulant Therapy: No OARRS: Reviewed: The patient's OARRS report was reviewed and is consistent with the reported medication use. PAIN PANEL: 11/12/2021 reviewed and appropriate OPIOID AGREEMENT: reviewed Pain medications reviewed: Yes Past Medical History: PAST MEDICAL HISTORY Diagnosis Date Back pain PMH - PAST MEDICAL HISTORY OF hypokalemic periodic pyralysis Past Surgical History: PAST SURGICAL HISTORY Procedure Laterality Date ANESTH DIAGNOSTIC ARTHROSCOPIC PROC KNEE JOINT 2000, 2001 right torn meniscus x 2 PAST SURGICAL HISTORY OF 11/13 lumbar surgery PAST SURGICAL HISTORY OF 2009 Spinal cord stimulator [employer] THUMB 2003 gamekeeper's thumb surg Family History: FAMILY HISTORY Problem Relation Age of Onset Hypertension Father Cancer Father basal cell other (multiple sclerosis) Father also father's sister Diabetes Maternal Grandfather Heart Maternal Grandfather Diabetes Paternal Grandfather Heart Paternal Grandfather Social History: Alcohol Use: Approximately 1.2 oz/week [which includes 2 Shots of liquor per week] (social) Tobacco Use: Quit 01/23/2003. Types: Chew Drug Use: No Questionnaires: Patient Entered Questionnaires Spine Red Flags 06/08/2020 04/06/2021 07/01/2021 Any type of cancer: No No No Unexplained fever: No No No Bowel or bladder disfunction: No No No Unintentional weight loss: No No No Osteoporosis: No No No PROMIS Score Percentiles Physical Health 07/29/2022 11/03/2022 02/13/2023 Physical Function Percentile 12 12 12 Sleep Percentile - - - Pain Interference Percentile 4 5 12 PROMIS Global Health Scale 11/03/2022 02/13/2023 02/14/2023 Physical Health Percentile 22* 31 31 Mental Health Percentile 26* 43 43 Percentiles provide an indication of how the patient's score ranks in relation to the general population. Higher percentile rankings indicate better function/quality of life. 50th percentile is the av (more content not included)... [facility] 11-03-2022 Note HNO ID: [id number] Author: Shakila Vidales APRN.DONNA Service: ? Author Type: Nurse Practitioner Type: Progress Notes Filed: 11/05/2022 1:08 PM Note Text: Chronic Pain Clinic Telephone Encounter Evaluation Man Bravo consented to the encounter being held via telephone Shakila Vidales APRN.DONNA and Man Bravo present during telemedicine encounter via Zoom. Date: November 03, 2022 Chief Complaint: Chronic Pain SUBJECTIVE: Man Bravo is a 42 year old who presents to [facility] Pain Management Department for a follow up appointment. The plan from the last visit on 08/05/2022 was: Continue current treatment plan established by Dr. Aceves 2. The following approved medication requests have been transmitted electronically. Signed Prescriptions Disp Refills methadone (DOLOPHINE) 5 mg tablet 60 tablet 0 Sig: Take 1 tablet by mouth twice daily for 30 days. Do not start before April 20, 2021. REA Class: C-II ELVIRA: No methadone (DOLOPHINE) 5 mg tablet 60 tablet 0 Sig: Take 1 tablet by mouth twice daily as needed for pain for up to 30 days. Do not start before May 20, 2021. REA Class: C-II ELVIRA: No methadone (DOLOPHINE) 5 mg tablet 60 tablet 0 Sig: Take 1 tablet by mouth twice daily for 30 days. Do not start before June 19, 2021. REA Class: C-II ELVIRA: No 3. RTC in 3 months for medication refill and follow-up 4. Pain panel obtained 11/12/21 Since the last visit, patient states that he is doing well and no changes. Patient did get a new job. Patient states that he will get EKG done soon. Pain Location: lower back Duration: years. Symptoms have been persistent. Pain character: aching, sharp and shooting Current pain intensity (on a scale of 0-10/10): 5 Best pain intensity (on a scale of 0-10/10): 4 Worst pain intensity (on a scale of 0-10/10): 9 Exacerbating factors: activity Alleviating factors: rest, SCS Sleep disturbance? Yes OARRS: Reviewed: The patient's OARRS report was reviewed and is consistent with the reported medication use. Annual Visit: 06/11/2020 Current Outpatient Medications: Current Outpatient Medications Medication Sig [START ON 11/05/2022] methadone (DOLOPHINE) 5 mg tablet Take 1 tablet by mouth every 12 hours as needed for pain for up to 30 days. Do not start before November 05, 2022. [START ON 12/05/2022] methadone (DOLOPHINE) 5 mg tablet Take 1 tablet by mouth every 12 hours as needed for pain for up to 30 days. Do not start before December 05, 2022. [START ON 01/04/2023] methadone (DOLOPHINE) 5 mg tablet Take 1 tablet by mouth every 12 hours as needed for pain for up to 30 days. Do not start before January 04, 2023. naloxone (NARCAN) 0.4 mg/mL soln Inject 1 mL intravenously as needed. sertraline (ZOLOFT) 100 mg tablet Take 1 tablet by mouth once daily. levothyroxine (SYNTHROID) 25 mcg tablet Take 1 tablet by mouth once daily. testosterone cypionate (DEPO-TESTOSTERONE) 200 mg/mL injection INJECT 0.5 ML IM ONCE WEEKLY potassium chloride(K-DUR 20 MEQ TAB) Take by mouth once daily. AMILORIDE 5 MG TAB Take one tablet once a day No current facility-administered medications for this visit. New Imaging and Diagnostic Studies: No ASSESSMENT: Man Bravo is a 42 year old male with chronic lower back pain that radiates to his right leg following a work accident. Patient has a PMHx of hypothyroidism, V-tach, and post laminectomy syndrome. Patient has received previous procedure SCS implant with >50% pain relief. Patient presents today for medication refill and follow-up. Patient denies any issues with his current medication regimen. Man Bravo will need to RTC in 3 months for medication refill and follow-up (virtual okay). (M54.42, M54.41, G89.29) Chronic bilateral low back pain with bilateral sciatica (M96.1) Lumbar post-laminectomy syndrome (F11.90) Chronic, continuous use of opioids (M96.1) POSTLAMINECT SYND-LUMBAR Plan: Continue current treatment plan established by Dr. Aceves 2. The following approved medication requests have been transmitted electronically. Signed Prescriptions Disp Refills methadone (DOLOPHINE) 5 mg tablet 60 tablet 0 Sig: Take 1 tablet by mouth twice daily for 30 days. Do not start before April 20, 2021. REA Class: C-II ELVIRA: No methadone (DOLOPHINE) 5 mg tablet 60 tablet 0 Sig: Take 1 tablet by mouth twice daily as needed for pain for up to 30 days. Do not start before May 20, 2021. REA Class: C-II ELVIRA: No methadone (DOLOPHINE) 5 mg tablet 60 tablet 0 Sig: Take 1 tablet by mouth twice daily for 30 days. Do not start before June 19, 2021. REA Class: C-II ELVIRA: No 3. RTC in 3 months for medication refill and follow-up 4. Pain panel obtained 11/12/21 The above plan and management options were discussed at length with patient. The patient is in agreement with the above and verbalized understanding. Total time spent on telephone discussi (more content not included)... [facility] 11-03-2022 History of Presen t illness Narrative Chronic Pain Clinic Telephone Encounter Evaluation Man Bravo consented to the encounter being held via telephone Shakila Vidales APRN.DONNA and Man Morris Bravo present during telemedicine encounter via Zoom. Date: November 03, 2022 Chief Complaint: Chronic Pain SUBJECTIVE: Man Bravo is a 42 year old who presents to [facility] Pain Management Department for a follow up appointment. The plan from the last visit on 08/05/2022 was: Continue current treatment plan established by Dr. Aceves 2. The following approved medication requests have been transmitted electronically. Signed Prescriptions Disp Refills methadone (DOLOPHINE) 5 mg tablet 60 tablet 0 Sig: Take 1 tablet by mouth twice daily for 30 days. Do not start before April 20, 2021. REA Class: C-II ELVIRA: No methadone (DOLOPHINE) 5 mg tablet 60 tablet 0 Sig: Take 1 tablet by mouth twice daily as needed for pain for up to 30 days. Do not start before May 20, 2021. REA Class: C-II ELVIRA: No methadone (DOLOPHINE) 5 mg tablet 60 tablet 0 Sig: Take 1 tablet by mouth twice daily for 30 days. Do not start before June 19, 2021. REA Class: C-II ELVIRA: No 3. RTC in 3 months for medication refill and follow-up 4. Pain panel obtained 11/12/21 Since the last visit, patient states that he is doing well and no changes. Patient did get a new job. Patient states that he will get EKG done soon. Pain Location: lower back Duration: years. Symptoms have been persistent. Pain character: aching, sharp and shooting Current pain intensity (on a scale of 0-10/10): 5 Best pain intensity (on a scale of 0-10/10): 4 Worst pain intensity (on a scale of 0-10/10): 9 Exacerbating factors: activity Alleviating factors: rest, SCS Sleep disturbance? Yes OARRS: Reviewed: The patient's OARRS report was reviewed and is consistent with the reported medication use. Annual Visit: 06/11/2020 Current Outpatient Medications: Current Outpatient Medications Medication Sig [START ON 11/05/2022] methadone (DOLOPHINE) 5 mg tablet Take 1 tablet by mouth every 12 hours as needed for pain for up to 30 days. Do not start before November 05, 2022. [START ON 12/05/2022] methadone (DOLOPHINE) 5 mg tablet Take 1 tablet by mouth every 12 hours as needed for pain for up to 30 days. Do not start before December 05, 2022. [START ON 01/04/2023] methadone (DOLOPHINE) 5 mg tablet Take 1 tablet by mouth every 12 hours as needed for pain for up to 30 days. Do not start before January 04, 2023. naloxone (NARCAN) 0.4 mg/mL soln Inject 1 mL intravenously as needed. sertraline (ZOLOFT) 100 mg tablet Take 1 tablet by mouth once daily. levothyroxine (SYNTHROID) 25 mcg tablet Take 1 tablet by mouth once daily. testosterone cypionate (DEPO-TESTOSTERONE) 200 mg/mL injection INJECT 0.5 ML IM ONCE WEEKLY potassium chloride(K-DUR 20 MEQ TAB) Take by mouth once daily. AMILORIDE 5 MG TAB Take one tablet once a day No current facility-administered medications for this visit. New Imaging and Diagnostic Studies: No ASSESSMENT: Man Bravo is a 42 year old male with chronic lower back pain that radiates to his right leg following a work accident. Patient has a PMHx of hypothyroidism, V-tach, and post laminectomy syndrome. Patient has received previous procedure SCS implant with >50% pain relief. Patient presents today for medication refill and follow-up. Patient denies any issues with his current medication regimen. Man Bravo will need to RTC in 3 months for medication refill and follow-up (virtual okay). (M54.42, M54.41, G89.29) Chronic bilateral low back pain with bilateral sciatica (M96.1) Lumbar post-laminectomy syndrome (F11.90) Chronic, continuous use of opioids (M96.1) POSTLAMINECT SYND-LUMBAR Plan: Continue current treatment plan established by Dr. Aceves 2. The following approved medication requests have been transmitted electronically. Signed Prescriptions Disp Refills methadone (DOLOPHINE) 5 mg tablet 60 tablet 0 Sig: Take 1 tablet by mouth twice daily for 30 days. Do not start before April 20, 2021. REA Class: C-II ELVIRA: No methadone (DOLOPHINE) 5 mg tablet 60 tablet 0 Sig: Take 1 tablet by mouth twice daily as needed for pain for up to 30 days. Do not start before May 20, 2021. REA Class: C-II ELVIRA: No methadone (DOLOPHINE) 5 mg tablet 60 tablet 0 Sig: Take 1 tablet by mouth twice daily for 30 days. Do not start before June 19, 2021. REA Class: C-II ELVIRA: No 3. RTC in 3 months for medication refill and follow-up 4. Pain panel obtained 11/12/21 The above plan and management options were discussed at length with patient. The patient is in agreement with the above and verbalized understanding. Total time spent on telephone discussion: 15 minutes Shakila Vidales APRN.DONNA November 03, 2022 Some element were copied from my note on 08/05/2022, which have been updated where appropriate, and reflect my current medical decision making from today. documented in this encounter [facility] 08-05-2022 Miscellaneous Notes Formattin g of this note might be different from the original. Prior Auth for methadone approved by [facility]. Sujata Lee RN documented in this encounter [facility] 08-05-2022 Note HNO ID: [id number] Author: Shakila Vidales APRN.DONNA Service: ? Author Type: Nurse Practitioner Type: Progress Notes Filed: 08/05/2022 1:55 PM Note Text: Chronic Pain Clinic Telephone Encounter Evaluation Man Bravo consented to the encounter being held via telephone Shakila Vidales APRN.CORNICE MAKER and Man Bravo present during telemedicine encounter via Zoom. Date: August 05, 2022 Chief Complaint: Chronic Pain SUBJECTIVE: Man Bravo is a 40 year old who presents to [facility] Pain Management Department for a follow up appointment. The plan from the last visit on 02/13/2021 was: Continue current treatment plan established by Dr. Aceves 2. The following approved medication requests have been transmitted electronically. Signed Prescriptions Disp Refills methadone (DOLOPHINE) 5 mg tablet 60 tablet 0 Sig: Take 1 tablet by mouth twice daily for 30 days. Do not start before February 17, 2021. REA Class: C-II ELVIRA: No methadone (DOLOPHINE) 5 mg tablet 60 tablet 0 Sig: Take 1 tablet by mouth twice daily as needed for pain for up to 30 days. Do not start before March 19, 2021. REA Class: C-II ELVIRA: No 3. RTC in 2 months for medication refill and follow-up 4. Orders placed for EKG, will need repeat in May. Since the last visit, patient lost his job. Patient denies any issues with his medication at this time. Patient states that he is doing well on this regimen. Pain Location: lower back Duration: years. Symptoms have been persistent. Pain character: aching, sharp and shooting Current pain intensity (on a scale of 0-10/10): 5 Best pain intensity (on a scale of 0-10/10): 4 Worst pain intensity (on a scale of 0-10/10): 9 Exacerbating factors: activity Alleviating factors: rest, SCS Sleep disturbance? Yes OARRS: Reviewed: The patient's OARRS report was reviewed and is consistent with the reported medication use. Annual Visit: 06/11/2020 Current Outpatient Medications: Current Outpatient Medications Medication Sig methadone (DOLOPHINE) 5 mg tablet Take 1 tablet by mouth every 12 hours as needed for pain for up to 30 days. [START ON 09/04/2022] methadone (DOLOPHINE) 5 mg tablet Take 1 tablet by mouth every 12 hours as needed for pain for up to 30 days. Do not start before September 04, 2022. [START ON 10/04/2022] methadone (DOLOPHINE) 5 mg tablet Take 1 tablet by mouth every 12 hours as needed for pain for up to 30 days. Do not start before October 04, 2022. naloxone (NARCAN) 0.4 mg/mL soln Inject 1 mL intravenously as needed. sertraline (ZOLOFT) 100 mg tablet Take 1 tablet by mouth once daily. levothyroxine (SYNTHROID) 25 mcg tablet Take 1 tablet by mouth once daily. testosterone cypionate (DEPO-TESTOSTERONE) 200 mg/mL injection INJECT 0.5 ML IM ONCE WEEKLY potassium chloride(K-DUR 20 MEQ TAB) Take by mouth once daily. AMILORIDE 5 MG TAB Take one tablet once a day No current facility-administered medications for this visit. New Imaging and Diagnostic Studies: No ASSESSMENT: Man Bravo is a 41 year old male with chronic lower back pain that radiates to his right leg following a work accident. Patient has a PMHx of hypothyroidism, V-tach, and post laminectomy syndrome. Patient has received previous procedure SCS implant with >50% pain relief. Patient presents today for medication refill and follow-up. Patient denies any issues with his current medication regimen. Man Bravo will need to RTC in 3 months for medication refill and follow-up (virtual okay). (M54.42, M54.41, G89.29) Chronic bilateral low back pain with bilateral sciatica (M96.1) Lumbar post-laminectomy syndrome (F11.90) Chronic, continuous use of opioids (M96.1) POSTLAMINECT SYND-LUMBAR Plan: Continue current treatment plan established by Dr. Aceves 2. The following approved medication requests have been transmitted electronically. Signed Prescriptions Disp Refills methadone (DOLOPHINE) 5 mg tablet 60 tablet 0 Sig: Take 1 tablet by mouth twice daily for 30 days. Do not start before April 20, 2021. REA Class: C-II ELVIRA: No methadone (DOLOPHINE) 5 mg tablet 60 tablet 0 Sig: Take 1 tablet by mouth twice daily as needed for pain for up to 30 days. Do not start before May 20, 2021. REA Class: C-II ELVIRA: No methadone (DOLOPHINE) 5 mg tablet 60 tablet 0 Sig: Take 1 tablet by mouth twice daily for 30 days. Do not start before June 19, 2021. REA Class: C-II ELVIRA: No 3. RTC in 3 months for medication refill and follow-up 4. Pain panel obtained 11/12/21 The above plan and management options were discussed at length with patient. The patient is in agreement with the above and verbalized understanding. Total time spent on telephone discussion: 15 minutes Shakila Vidales APRN.DONNA August 05, 2022 Some element were copied from my note on 04/08/2021 and 05/05/2022, which have been updated where appropriate, and reflect my current medical (more content not included)... [facility] 08-05-2022 History of Presen t illness Narrative Chronic Pain Clinic Telephone Encounter Evaluation Man Bravo consented to the encounter being held via telephone Shakila Vidales APRN.DONNA and Man Morris Bravo present during telemedicine encounter via Zoom. Date: August 05, 2022 Chief Complaint: Chronic Pain SUBJECTIVE: Man Bravo is a 40 year old who presents to [facility] Pain Management Department for a follow up appointment. The plan from the last visit on 02/13/2021 was: Continue current treatment plan established by Dr. Aceves 2. The following approved medication requests have been transmitted electronically. Signed Prescriptions Disp Refills methadone (DOLOPHINE) 5 mg tablet 60 tablet 0 Sig: Take 1 tablet by mouth twice daily for 30 days. Do not start before February 17, 2021. REA Class: C-II ELVIRA: No methadone (DOLOPHINE) 5 mg tablet 60 tablet 0 Sig: Take 1 tablet by mouth twice daily as needed for pain for up to 30 days. Do not start before March 19, 2021. REA Class: C-II ELVIRA: No 3. RTC in 2 months for medication refill and follow-up 4. Orders placed for EKG, will need repeat in May. Since the last visit, patient lost his job. Patient denies any issues with his medication at this time. Patient states that he is doing well on this regimen. Pain Location: lower back Duration: years. Symptoms have been persistent. Pain character: aching, sharp and shooting Current pain intensity (on a scale of 0-10/10): 5 Best pain intensity (on a scale of 0-10/10): 4 Worst pain intensity (on a scale of 0-10/10): 9 Exacerbating factors: activity Alleviating factors: rest, SCS Sleep disturbance? Yes OARRS: Reviewed: The patient's OARRS report was reviewed and is consistent with the reported medication use. Annual Visit: 06/11/2020 Current Outpatient Medications: Current Outpatient Medications Medication Sig methadone (DOLOPHINE) 5 mg tablet Take 1 tablet by mouth every 12 hours as needed for pain for up to 30 days. [START ON 09/04/2022] methadone (DOLOPHINE) 5 mg tablet Take 1 tablet by mouth every 12 hours as needed for pain for up to 30 days. Do not start before September 04, 2022. [START ON 10/04/2022] methadone (DOLOPHINE) 5 mg tablet Take 1 tablet by mouth every 12 hours as needed for pain for up to 30 days. Do not start before October 04, 2022. naloxone (NARCAN) 0.4 mg/mL soln Inject 1 mL intravenously as needed. sertraline (ZOLOFT) 100 mg tablet Take 1 tablet by mouth once daily. levothyroxine (SYNTHROID) 25 mcg tablet Take 1 tablet by mouth once daily. testosterone cypionate (DEPO-TESTOSTERONE) 200 mg/mL injection INJECT 0.5 ML IM ONCE WEEKLY potassium chloride(K-DUR 20 MEQ TAB) Take by mouth once daily. AMILORIDE 5 MG TAB Take one tablet once a day No current facility-administered medications for this visit. New Imaging and Diagnostic Studies: No ASSESSMENT: Man Bravo is a 41 year old male with chronic lower back pain that radiates to his right leg following a work accident. Patient has a PMHx of hypothyroidism, V-tach, and post laminectomy syndrome. Patient has received previous procedure SCS implant with >50% pain relief. Patient presents today for medication refill and follow-up. Patient denies any issues with his current medication regimen. Man Bravo will need to RTC in 3 months for medication refill and follow-up (virtual okay). (M54.42, M54.41, G89.29) Chronic bilateral low back pain with bilateral sciatica (M96.1) Lumbar post-laminectomy syndrome (F11.90) Chronic, continuous use of opioids (M96.1) POSTLAMINECT SYND-LUMBAR Plan: Continue current treatment plan established by Dr. Aceves 2. The following approved medication requests have been transmitted electronically. Signed Prescriptions Disp Refills methadone (DOLOPHINE) 5 mg tablet 60 tablet 0 Sig: Take 1 tablet by mouth twice daily for 30 days. Do not start before April 20, 2021. REA Class: C-II ELVIRA: No methadone (DOLOPHINE) 5 mg tablet 60 tablet 0 Sig: Take 1 tablet by mouth twice daily as needed for pain for up to 30 days. Do not start before May 20, 2021. REA Class: C-II ELVIRA: No methadone (DOLOPHINE) 5 mg tablet 60 tablet 0 Sig: Take 1 tablet by mouth twice daily for 30 days. Do not start before June 19, 2021. REA Class: C-II ELVIRA: No 3. RTC in 3 months for medication refill and follow-up 4. Pain panel obtained 11/12/21 The above plan and management options were discussed at length with patient. The patient is in agreement with the above and verbalized understanding. Total time spent on telephone discussion: 15 minutes Shakila Vdiales APRN.CNP August 05, 2022 Some element were copied from my note on 04/08/2021 and 05/05/2022, which have been updated where appropriate, and reflect my current medical decision making from today documented in this encounter [facility] 05-05-2022 Note HNO ID: [id number] Author: Shakila Vidales APRN.CNP Service: ? Author Type: Nurse Practitioner Type: Progress Notes Filed: 05/07/2022 8:36 AM Note Text: Chronic Pain Clinic Follow-Up Evaluation Date: May 05, 2022 Chief Complaint: Chronic pain Last Annual Visit: 07/08/2021 SUBJECTIVE: Man Bravo is a 41 year old who presents to [facility] Department for a follow up appointment for medication refill. The plan from the last visit on 11/12/2021 was: Continue treatment plan as established by Dr. Aceves. 2. The following approved medication requests have been transmitted electronically. Requested Prescriptions Signed Prescriptions Disp Refills methadone (DOLOPHINE) 5 mg tablet 60 tablet 0 Sig: Take 1 tablet by mouth every 12 hours as needed for pain for up to 30 days. Do not start before November 24, 2021. methadone (DOLOPHINE) 5 mg tablet 60 tablet 0 Sig: Take 1 tablet by mouth every 12 hours as needed for pain for up to 30 days. Do not start before December 24, 2021. methadone (DOLOPHINE) 5 mg tablet 60 tablet 0 Sig: Take 1 tablet by mouth twice daily for 30 days. Do not start before January 23, 2022. 3. Pain panel obtained today and Opioid agreement reviewed 4. RTC in 3 months for medication refill and follow-up (in-person with [employer] present) 5. Orders placed: none 6. Patient encouraged to continue daily physical therapy exercises Since the last visit, patient denies any issues. Patient states that his pain is fairly bad today and is unsure why. Patient is seen with [employer] today for some reprogramming. Looks like [facility] can now do Virtual appointment so he would like to stay with Dr. Aceves. Pain Location: lower back Duration: years. Symptoms have been persistent. Pain character: aching, sharp, and shooting Best pain intensity (on a scale of 0-10/10): 4 Worst pain intensity (on a scale of 0-10/10): 9 Exacerbating factors: activity, lifting Alleviating factors: medications and rest, SCS Sleep disturbance? Yes Previous pain treatments: physical therapy, medications, TENS, massage, surgery, injections Current Outpatient Medications: Current Outpatient Medications Medication Sig methadone (DOLOPHINE) 5 mg tablet Take 1 tablet by mouth every 12 hours as needed for pain for up to 30 days. [START ON 06/04/2022] methadone (DOLOPHINE) 5 mg tablet Take 1 tablet by mouth every 12 hours as needed for pain for up to 30 days. Do not start before June 04, 2022. [START ON 07/04/2022] methadone (DOLOPHINE) 5 mg tablet Take 1 tablet by mouth every 12 hours as needed for pain for up to 30 days. Do not start before July 04, 2022. naloxone (NARCAN) 0.4 mg/mL soln Inject 1 mL intravenously as needed. sertraline (ZOLOFT) 100 mg tablet Take 1 tablet by mouth once daily. levothyroxine (SYNTHROID) 25 mcg tablet Take 1 tablet by mouth once daily. testosterone cypionate (DEPO-TESTOSTERONE) 200 mg/mL injection INJECT 0.5 ML IM ONCE WEEKLY potassium chloride(K-DUR 20 MEQ TAB) Take by mouth once daily. AMILORIDE 5 MG TAB Take one tablet once a day No current facility-administered medications for this visit. Current Anticoagulant Therapy: No OARRS: Reviewed: The patient's OARRS report was reviewed and is consistent with the reported medication use. Pain panel: 11/12/2021 reviewed and appropriate with prescribed medications Opioid agreement: reviewed Pain medications reviewed: Yes Past Medical History: PAST MEDICAL HISTORY Diagnosis Date Back pain PMH - PAST MEDICAL HISTORY OF hypokalemic periodic pyralysis Past Surgical History: PAST SURGICAL HISTORY Procedure Laterality Date ANESTH DIAGNOSTIC ARTHROSCOPIC PROC KNEE JOINT 2000, 2001 right torn meniscus x 2 PAST SURGICAL HISTORY OF 11/13 lumbar surgery PAST SURGICAL HISTORY OF 2008 Spinal cord stimulator [employer] THUMB 2002 gamekeeper's thumb surg Family History: FAMILY HISTORY Problem Relation Age of Onset Hypertension Father Cancer Father basal cell other (multiple sclerosis) Father also father's sister Diabetes Maternal Grandfather Heart Maternal Grandfather Diabetes Paternal Grandfather Heart Paternal Grandfather Social History: Alcohol Use: Approximately 1.2 oz/week [which includes 2 Shots of liquor per week] (social) Tobacco Use: Quit 01/23/2003. Types: Chew Drug Use: No Review of Systems: The Review of Systems is negative in detail except as noted in the above history of present illness. Physical Examination: General:well appearing, alert, and in no acute distress Skin: skin color, texture, turgor normal, no rashes or lesions HEENT: normocephalic, atraumatic, sclera non-icteric Musculoskeletal: Neck: Supple; good ROM. Back: Tenderness on palpation over the lumbar spine. , Pain reproduced with extension of the lumbar spine. , Limited range of motion with backward extension, rotation to the right and left Extremitie (more content not included)... [facility] 05-05-2022 History of Presen t illness Narrative Chronic Pain Clinic Follow-Up Evaluation Date: May 05, 2022 Chief Complaint: Chronic pain Last Annual Visit: 07/08/2021 SUBJECTIVE: Man Bravo is a 41 year old who presents to [facility] Department for a follow up appointment for medication refill. The plan from the last visit on 11/12/2021 was: Continue treatment plan as established by Dr. Aceves. 2. The following approved medication requests have been transmitted electronically. Requested Prescriptions Signed Prescriptions Disp Refills methadone (DOLOPHINE) 5 mg tablet 60 tablet 0 Sig: Take 1 tablet by mouth every 12 hours as needed for pain for up to 30 days. Do not start before November 24, 2021. methadone (DOLOPHINE) 5 mg tablet 60 tablet 0 Sig: Take 1 tablet by mouth every 12 hours as needed for pain for up to 30 days. Do not start before December 24, 2021. methadone (DOLOPHINE) 5 mg tablet 60 tablet 0 Sig: Take 1 tablet by mouth twice daily for 30 days. Do not start before January 23, 2022. 3. Pain panel obtained today and Opioid agreement reviewed 4. RTC in 3 months for medication refill and follow-up (in-person with [employer] present) 5. Orders placed: none 6. Patient encouraged to continue daily physical therapy exercises Since the last visit, patient denies any issues. Patient states that his pain is fairly bad today and is unsure why. Patient is seen with [employer] today for some reprogramming. Looks like [facility] can now do Virtual appointment so he would like to stay with Dr. Aceves. Pain Location: lower back Duration: years. Symptoms have been persistent. Pain character: aching, sharp, and shooting Best pain intensity (on a scale of 0-10/10): 4 Worst pain intensity (on a scale of 0-10/10): 9 Exacerbating factors: activity, lifting Alleviating factors: medications and rest, SCS Sleep disturbance? Yes Previous pain treatments: physical therapy, medications, TENS, massage, surgery, injections Current Outpatient Medications: Current Outpatient Medications Medication Sig methadone (DOLOPHINE) 5 mg tablet Take 1 tablet by mouth every 12 hours as needed for pain for up to 30 days. [START ON 06/04/2022] methadone (DOLOPHINE) 5 mg tablet Take 1 tablet by mouth every 12 hours as needed for pain for up to 30 days. Do not start before June 04, 2022. [START ON 07/04/2022] methadone (DOLOPHINE) 5 mg tablet Take 1 tablet by mouth every 12 hours as needed for pain for up to 30 days. Do not start before July 04, 2022. naloxone (NARCAN) 0.4 mg/mL soln Inject 1 mL intravenously as needed. sertraline (ZOLOFT) 100 mg tablet Take 1 tablet by mouth once daily. levothyroxine (SYNTHROID) 25 mcg tablet Take 1 tablet by mouth once daily. testosterone cypionate (DEPO-TESTOSTERONE) 200 mg/mL injection INJECT 0.5 ML IM ONCE WEEKLY potassium chloride(K-DUR 20 MEQ TAB) Take by mouth once daily. AMILORIDE 5 MG TAB Take one tablet once a day No current facility-administered medications for this visit. Current Anticoagulant Therapy: No OARRS: Reviewed: The patient's OARRS report was reviewed and is consistent with the reported medication use. Pain panel: 11/12/2021 reviewed and appropriate with prescribed medications Opioid agreement: reviewed Pain medications reviewed: Yes Past Medical History: PAST MEDICAL HISTORY Diagnosis Date Back pain PMH - PAST MEDICAL HISTORY OF hypokalemic periodic pyralysis Past Surgical History: PAST SURGICAL HISTORY Procedure Laterality Date ANESTH DIAGNOSTIC ARTHROSCOPIC PROC KNEE JOINT 2000, 2001 right torn meniscus x 2 PAST SURGICAL HISTORY OF 11/13 lumbar surgery PAST SURGICAL HISTORY OF 2009 Spinal cord stimulator [employer] THUMB 2002 gamekeeper's thumb surg Family History: FAMILY HISTORY Problem Relation Age of Onset Hypertension Father Cancer Father basal cell other (multiple sclerosis) Father also father's sister Diabetes Maternal Grandfather Heart Maternal Grandfather Diabetes Paternal Grandfather Heart Paternal Grandfather Social History: Alcohol Use: Approximately 1.2 oz/week [which includes 2 Shots of liquor per week] (social) Tobacco Use: Quit 01/23/2003. Types: Chew Drug Use: No Review of Systems: The Review of Systems is negative in detail except as noted in the above history of present illness. Physical Examination: General:well appearing, alert, and in no acute distress Skin: skin color, texture, turgor normal, no rashes or lesions HEENT: normocephalic, atraumatic, sclera non-icteric Musculoskeletal: Neck: Supple; good ROM. Back: Tenderness on palpation over the lumbar spine. , Pain reproduced with extension of the lumbar spine. , Limited range of motion with backward extension, rotation to the right and left Extremities: see HPI, Extremities normal. No deformities, edema, or skin discoloration Neurological: Mental Status: alert, oriented to person, place, and time Motor Strength: Motor strength and tone are 5/5 all throughout. Sensory: Sensation was intact to light touch all throughout. Gait: Antalgic. New Imaging and Diagnostic Studies: No ASSESSMENT: Man Bravo is a 41 year old male with chronic lower back pain that radiates to his right leg following a work accident. Patient has a PMHx of hypothyroidism, V-tach, and post laminectomy syndrome. Patient has received previous procedure SCS implant with >50% pain relief. [employer] present today to reprogram and hopefully get some better relief. Patient presents today for medication refill and follow-up. Patient denies any issues with his current medication regimen. Man Bravo will need to RTC in 3 months for medication refill and follow-up (virtual okay). (M54.42, M54.41, G89.29) Chronic bilateral low back pain with bilateral sciatica (M96.1) Lumbar post-laminectomy syndrome (F11.90) Chronic, continuous use of opioids (M96.1) POSTLAMINECT SYND-LUMBAR Plan: Continue treatment plan as established by Dr. Aceves. 2. The following approved medication requests have been transmitted electronically. Requested Prescriptions Signed Prescriptions Disp Refills methadone (DOLOPHINE) 5 mg tablet 60 tablet 0 Sig: Take 1 tablet by mouth every 12 hours as needed for pain for up to 30 days. methadone (DOLOPHINE) 5 mg tablet 60 tablet 0 Sig: Take 1 tablet by mouth every 12 hours as needed for pain for up to 30 days. Do not start before June 04, 2022. methadone (DOLOPHINE) 5 mg tablet 60 tablet 0 Sig: Take 1 tablet by mouth every 12 hours as needed for pain for up to 30 days. Do not start before July 04, 2022. 3. Pain panel obtained 11/12/2021 and Opioid agreement reviewed 4. RTC in 3 months for medication refill and follow-up (Virtual okay) 5. Orders placed: EKG to monitor QTC with methadone (still needed, printed the order) 6. Patient encouraged to continue daily physical therapy exercises The above plan and management options were discussed at length with the patient. The patient is in agreement with the above and verbalized understanding. Medical Decision Making: Problems: Low: Stable chronic illness Data: Unique test result(s) reviewed: 1 Risk: Moderate: Drug management Medical Decision Making Level: 3 - Low Shakila Vidales APRN.DONNA May 07, 2022 Some element were copied from my note on 02/26/2022, which have been updated where appropriate, and reflect my current medical decision making from today documented in this encounter [facility] 11-12-2021 History of Presen t illness Narrative Chronic Pain Clinic Follow-Up Evaluation Date: November 12, 2021 - 3:58 PM Chief Complaint: Chronic Pain Last Annual Visit: 07/08/2021 SUBJECTIVE: Man Bravo is a 41 year old who presents to [facility] Department for a follow up appointment for chronic pain. The plan from the last visit on 07/08/2021 was: 1) Continue methadone 5mg q12H PRN for 30 days Prescription for July and August combined into one as [place] leaving the country and unable to fill in between refills Opioid agreement signed 2) EKG to monitor QTc 3) RTC 3 months for med refill. 4) Counseled patient regarding the importance of stress management. Since the last visit, patient states that he is not getting relief from the stimulator at this point in his pain control. Patient states that he would like to try reprogramming at next office appointment to determine what the issue may be with his coverage since it use to help >50% of his pain. Patient states that he is willing to do and try anything to help with his pain. Pain Location: lower back Duration: years. Symptoms have been persistent. Pain character: aching, sharp, and shooting Current pain intensity (on a scale of 0-10/10): 5 Best pain intensity (on a scale of 0-10/10): 4 Worst pain intensity (on a scale of 0-10/10): 9 Exacerbating factors: activity Alleviating factors: medications and rest, SCS Sleep disturbance? Yes Previous pain treatments: physical therapy, medications, TENS, massage, surgery, injections Current Outpatient Medications: Current Outpatient Medications Medication Sig [START ON 11/24/2021] methadone (DOLOPHINE) 5 mg tablet Take 1 tablet by mouth every 12 hours as needed for pain for up to 30 days. Do not start before November 24, 2021. [START ON 12/24/2021] methadone (DOLOPHINE) 5 mg tablet Take 1 tablet by mouth every 12 hours as needed for pain for up to 30 days. Do not start before December 24, 2021. [START ON 01/23/2022] methadone (DOLOPHINE) 5 mg tablet Take 1 tablet by mouth twice daily for 30 days. Do not start before January 23, 2022. acetaminophen (TYLENOL) 325 mg tablet Take 2 tablets by mouth every 4 hours as needed. naloxone (NARCAN) 0.4 mg/mL soln Inject 1 mL intravenously as needed. sertraline (ZOLOFT) 100 mg tablet Take 1 tablet by mouth once daily. levothyroxine (SYNTHROID) 25 mcg tablet Take 1 tablet by mouth once daily. testosterone cypionate (DEPO-TESTOSTERONE) 200 mg/mL injection INJECT 0.5 ML IM ONCE WEEKLY potassium chloride(K-DUR 20 MEQ TAB) Take by mouth once daily. AMILORIDE 5 MG TAB Take one tablet once a day No current facility-administered medications for this visit. Current Anticoagulant Therapy: No OARRS: Reviewed: The patient's OARRS report was reviewed and is consistent with the reported medication use. Pain panel: 11/14/2020 reviewed and appropriate with prescribed medications Opioid agreement: reviewed Pain medications reviewed: Yes Past Medical History: PAST MEDICAL HISTORY Diagnosis Date Back pain PMH - PAST MEDICAL HISTORY OF hypokalemic periodic pyralysis Past Surgical History: PAST SURGICAL HISTORY Procedure Laterality Date ANESTH DIAGNOSTIC ARTHROSCOPIC PROC KNEE JOINT 2000, 2001 right torn meniscus x 2 PAST SURGICAL HISTORY OF 11/13 lumbar surgery PAST SURGICAL HISTORY OF 2009 Spinal cord stimulator [employer] THUMB 2003 gamekeeper's thumb surg Family History: FAMILY HISTORY Problem Relation Age of Onset Hypertension Father Cancer Father basal cell other (multiple sclerosis) Father also father's sister Diabetes Maternal Grandfather Heart Maternal Grandfather Diabetes Paternal Grandfather Heart Paternal Grandfather Social History: Alcohol Use: Approximately 1.2 oz/week [which includes 2 Shots of liquor per week] (social) Tobacco Use: Quit 01/23/2003. Types: Chew Drug Use: No Review of Systems: The Review of Systems is negative in detail except as noted in the above history of present illness. Physical Examination: General:well appearing, alert, and in no acute distress Skin: skin color, texture, turgor normal, no rashes or lesions HEENT: normocephalic, atraumatic, sclera non-icteric Musculoskeletal: Neck: Supple; good ROM. Back: Tenderness on palpation over the lumbar spine. , Pain reproduced with extension of the lumbar spine. , Limited range of motion with backward extension, rotation to the right and left Extremities: see HPI, Extremities normal. No deformities, edema, or skin discoloration Neurological: Mental Status: alert, oriented to person, place, and time Motor Strength: Motor strength and tone are 5/5 all throughout. Sensory: Sensation was intact to light touch all throughout. Gait: Antalgic. New Imaging and Diagnostic Studies: No 05/26/2020 Thoracic XR and lumbar XR: IMPRESSION: Spinal stimulator with leads terminating at T6-T7. Mild degenerative change thoracic and lumbar spine. ASSESSMENT: Man Bravo is a 41 year old male with chronic lower back pain that radiates to his right leg following a work accident. Patient has a PMHx of hypothyroidism, V-tach, and post laminectomy syndrome. Patient has received previous procedure SCS -implant with >50% relief at the time of implant but since does not feel like it is helping with his pain at all. We discussed that seeing [employer] to reprogram would be the next best step. Patient is willing to do anything to find ways to help with his pain. Patient presents today for medication refill and follow-up. Patient denies any issues with his current medication regimen. Man Bravo will need to RTC in 3 for medication refill and follow-up (in-person [facility] patient). (M54.42, M54.41, G89.29) Chronic bilateral low back pain with bilateral sciatica (M96.1) Lumbar post-laminectomy syndrome (F11.90) Chronic, continuous use of opioids (M96.1) POSTLAMINECT SYND-LUMBAR Plan: Continue treatment plan as established by Dr. Aceves. 2. The following approved medication requests have been transmitted electronically. Requested Prescriptions Signed Prescriptions Disp Refills methadone (DOLOPHINE) 5 mg tablet 60 tablet 0 Sig: Take 1 tablet by mouth every 12 hours as needed for pain for up to 30 days. Do not start before November 24, 2021. methadone (DOLOPHINE) 5 mg tablet 60 tablet 0 Sig: Take 1 tablet by mouth every 12 hours as needed for pain for up to 30 days. Do not start before December 24, 2021. methadone (DOLOPHINE) 5 mg tablet 60 tablet 0 Sig: Take 1 tablet by mouth twice daily for 30 days. Do not start before January 23, 2022. 3. Pain panel obtained today and Opioid agreement reviewed 4. RTC in 3 months for medication refill and follow-up (in-person with [employer] present) 5. Orders placed: none 6. Patient encouraged to continue daily physical therapy exercises The above plan and management options were discussed at length with the patient. The patient is in agreement with the above and verbalized understanding. I spent a total of 30 minutes on the date of the service which included preparing to see the patient, [id number] patient care, completing clinical documentation, obtaining and/or reviewing separately obtained history, performing a medically appropriate examination, counseling and educating the patient/family/caregiver, ordering medications, tests, or procedures, communicating with other HCPs (not separately reported), and care coordination (not separately reported). Shakila Vidales APRN.CNP November 12, 2021 documented in this encounter [facility] 10-21-2021 Miscellaneous Notes Formattin g of this note is different from the original. Discussing with patient via [employer] message. The following approved medication requests have been transmitted electronically. Requested Prescriptions Refused Prescriptions Disp Refills methadone (DOLOPHINE) 5 mg tablet 60 tablet 0 Sig: Take 1 tablet by mouth twice daily for 30 days. Refused By: SHAKILA VIDALES Reason for Refusal: Request already responded to by other means (for example, phone, fax) Shakila Vidales APRN.CNP documented in this encounter [facility] Evaluation + Plan note Future Appointments Appointment Date:05/07/2022 07:45:00 AM Scheduled Provider:SHERRI PATTERSON DO Location:[facility] Appointment Type:PC [facility] Diagnosis Chronic bilateral low back pain with bilateral sciatica Lumbar post-laminectomy syndrome Postlaminectomy syndrome, lumbar region Chronic, continuous use of opioids Opioid type dependence, continuous POSTLAMINECT SYND-LUMBAR Postlaminectomy syndrome, lumbar region [facility] Diagnosis Chronic bilateral low back pain with bilateral sciatica Lumbar post-laminectomy syndrome Postlaminectomy syndrome, lumbar region Chronic, continuous use of opioids Opioid type dependence, continuous POSTLAMINECT SYND-LUMBAR Postlaminectomy syndrome, lumbar region [facility] Diagnosis Chronic bilateral low back pain with bilateral sciatica Lumbar post-laminectomy syndrome Postlaminectomy syndrome, lumbar region Chronic, continuous use of opioids Opioid type dependence, continuous POSTLAMINECT SYND-LUMBAR Postlaminectomy syndrome, lumbar region [facility] Diagnosis Chronic bilateral low back pain with bilateral sciatica Lumbar post-laminectomy syndrome Postlaminectomy syndrome, lumbar region Chronic, continuous use of opioids Opioid type dependence, continuous POSTLAMINECT SYND-LUMBAR Postlaminectomy syndrome, lumbar region [facility] Narrative No data available for this section [facility] Hospital Discharge instructions No data available for this section [facility] Progress note No data available for this section [facility] Chief Complaint Chief Complaint Description Start Date right shoulder pain Preliminary chief co mplaint data, not yet signed by the author as of Instructions Instruction Description Start Date CompletedPatient advised to follow-up with Primary Care Physician for BMI management. Advance Directives There may be information available, but it has not been provided by the sender. No Advanced Directives Records FoundNo Advanced Directives Records Found Assessments There may be information available, but it has not been provided by the sender. Review of System There may be information available, but it has not been provided by the sender. Family History There may be information available, but it has not been provided by the sender.No Family History Records FoundNo Family History Records Found History of Present Illness There may be information available, but it has not been provided by the sender. Reason for Referral Specialty Diagnoses / Procedures Referred By Contac t Referred To Contact Diagnoses Postlaminectomy syndrome, lumbar region Shakila Vidales APRN.[place] [phone] Referral ID Status Reason Start Date Expiration Date Visits Re quested Visits Authorized [id number] Closed 1 1 Specialty Diagnoses / Procedures Referred By Contac t Referred To Contact Diagnoses Chronic bilateral low back pain with bilateral sciatica Lumbar post-laminectomy syndrome Chronic, continuous use of opioids Shakila Vidales APRN.[facility] [address] [place], [place] [id number] Referral ID Status Reason Start Date Expiration Date V isits Requested Visits Authorized [id number] Authorized 07/17/2023 1 1 Referral ID Status Reason Start Date Expiration Date Visits Re quested Visits Authorized [id number] Closed 1 1 Summary Purpose Additional Source Comments Reason for Visit (unrecogniz ed section and content) Reason Onset Date Comments Refill Request 10/20/2021 Specialty Diagnoses / Procedures Referred By Contac t Referred To Contact Pain Management / PAIN MANAGEMENT Diagnoses Med refill Procedures REFERRAL TO [facility] FINANCIAL COUNSEL[facility] EST PAIN Shakila Vidales APRN.[facility] [address] [place] [address] Shakila Vidales APRN.[facility] [address] [place] [address] Referral ID Status Reason Start Date Expiration Date V isits Requested Visits Authorized [id number] Pending Review 11/12/2021 02/10/2022 1 1 Specialty Diagnoses / Procedures Referred By Contac t Referred To Contact Pain Management / PAIN MANAGEMENT Diagnoses pump reprogramming Procedures REFERRAL TO [facility]CIAL COUNSEL[facility] Ialn Crowder MD [address] [place] [address] Shakila Vidales, MASTER CRAFTSMAN.[employer] [address] [place] [address] Referral ID Status Reason Start Date Expiration Date V isits Requested Visits Authorized [id number] Pending Review 04/22/2022 07/21/2022 1 1 Reason Comments Chronic Pain Specialty Diagnoses / Procedures Referred By Contac t Referred To Contact Pain Management / PAIN MANAGEMENT Diagnoses Medication refill Procedures REFERRAL TO [facility] FINANCIAL COUNSELOR VIDEO SPEC Ilan Shea MD [address] [place] [address] Shakila Vidales, [place] [address] Referral ID Status Reason Start Date Expiration Date V isits Requested Visits Authorized [id number] Pending Review 08/05/2022 11/03/2022 1 1 Reason Comments Insurance Authorization Reason Comments Chronic Pain Specialty Diagnoses / Procedures Referred By Contac t Referred To Contact Pain Management / PAIN MANAGEMENT Diagnoses Medication refill Procedures REFERRAL TO [facility] FINANCIAL COUNSEL[facility] VIDEO SPEC Ilan Shea MD [address] [place] [address] Shakila Vidales, [place] [address] Referral ID Status Reason Start Date Expiration Date Visits Re quested Visits Authorized [id number] Closed 08/05/2022 11/03/2022 1 1 Source Comments (unrecognize d section and content) In the event this informatio n is protected by the Federal Confidentiality of Alcohol and Drug Abuse Patient Records regulations: The Federal rules restrict any use of the information to criminally investigate or prosecute any alcohol or drug abuse patient.[facility] the event this information is protected by the Federal Confidentiality of Alcohol and Drug Abuse Patient Records regulations: The Federal rules restrict any use of the information to criminally investigate or prosecute any alcohol or drug abuse patient.[facility] the event this information is protected by the Federal Confidentiality of Alcohol and Drug Abuse Patient Records regulations: The Federal rules restrict any use of the information to criminally investigate or prosecute any alcohol or drug abuse patient.[facility] the event this information is protected by the Federal Confidentiality of Alcohol and Drug Abuse Patient Records regulations: The Federal rules restrict any use of the information to criminally investigate or prosecute any alcohol or drug abuse patient.[facility] the event this information is protected by the Federal Confidentiality of Alcohol and Drug Abuse Patient Records regulations: The Federal rules restrict any use of the information to criminally investigate or prosecute any alcohol or drug abuse patient.[facility] the event this information is protected by the Federal Confidentiality of Alcohol and Drug Abuse Patient Records regulations: The Federal rules restrict any use of the information to criminally investigate or prosecute any alcohol or drug abuse patient.[facility] Care Teams (unrecognized sec tion and content) Java Web Architect Relationship Specialty Start Date End Date Sherri Patterson DO PCP - General Family Medicine 12/16/16 Java Web Architect Relationship Specialty Start Date End Date Sherri Patterson DO PCP - General Family Medicine 12/16/16 Java Web Architect Relationship Specialty Start Date End Date Sherri Patterson DO PCP - General Family Medicine 12/16/16 Java Web Architect Relationship Specialty Start Date End Date Sherri Patterson DO PCP - General Family Medicine 12/16/16 Java Web Architect Relationship Specialty Start Date End Date Sherri Patterson DO PCP - General Family Medicine 12/16/16 Care Team (unrecognized sect ion and content) Care Team Personnel Name: SHERRI PATTERSON DO Position: P4 Physician - Primary Care Member Role: Primary Care Physician Address: Address: [address] [place] [id number] Care Team Related Persons Name: AMARA BRAVO Address: Home [address], [place] [id number] Name: SHERRI BRAVO Address: Home [address], [place] [id number] (unrecognized sect ion and content) No Status Records FoundNo Status Records Found INFORMATION SOURCE (unrecogn ized section and content) DATE CREATED AUTHOR AUTHOR'S ORGANIZ ATION 02/26/2023 [facility] FOR RECORDS PERTAINING TO PATIENTS WHO ARE OR HAVE BEEN ENROLLED IN A CHEMICAL DEPENDENCY/SUBSTANCEABUSE PROGRAM, SOME INFORMATION MAY BE OMITTED. This clinical summary was aggregated from multiple sources. Caution should be exercised in using it in the provision of clinical care. This summary normalizes information from multiple sources, and as a consequence, information in this document may materially change the coding, format and clinical context of patient data. In addition, data may be omitted in some cases. CLINICAL DECISIONS SHOULD BE BASED ON THE PRIMARY CLINICAL RECORDS. [employer] provides no warranty or guarantee of the accuracy or completeness of information in this document.
[2023-03-10] MEDS: Lactated Ringers 1,000 ML 15 ML IV (08:27)
[2023-03-10 08:52] LABS: Potassium 3.4 mmol/L (3.5-5.1)
[2023-03-10] MEDS: Magnesium 1 GM over 15 mins IV (09:41)
--- NOTE | 2023-03-10 10:27 | HP.PCM_ITS ---
HPI - General HPI Narrative JENNIFER RODRIGUEZ, is a 42 M who presents for left shoulder arthroscopy, subacromial decompression, possible rotator cuff repair, possible biceps tenodesis. no changes to h and p. patient interested to be admitted post op. due to potassium issues in the past. will consult with hospitalist. rab, narcotic counselling and post op instructions discussed. shoulder marked, plan for block. MR#: [id number] Acct: [id number] Name: JENNIFER RODRIGUEZ Rep #: [id number] : 1980 Provider: Dr. Misael Valladares MD Age/Sex: 42/M Location: [facility] [place] Status: Signed Intake Vital Signs 12/02/2306:59 Height 6 ft 1 in Weight: 264 lb 8 oz BMI 34.9 Intake Visit Reasons: LEFT SHOULDER Chief Complaint: Left shoulder pain Is patient in pain?: Yes Allergies Corticosteroids (Glucocorticoids) Allergy (Mild, Verified 02/10/23 15:47) hypokalemiahydrocodone [From Vicodin] Allergy (Verified 02/10/23 15:47) Unknown Medications Synthroid 25 mcg PO DAILY thyroid 12/01/17 [History Confirmed 02/10/23] amiloride 5 mg tablet 10 mg PO DAILY keep K+ up 12/01/17 [History Confirmed 02/10/23] methadone 10 mg tablet 30 mg PO BID back pain 12/01/17 [History Confirmed 02/10/23] sertraline 100 mg tablet (Zoloft) 100 mg PO DAILY anxiety 12/01/17 [History Confirmed 02/10/23] testosterone cypionate 100 mg/mL intramuscular oil (Depo-Testosterone) 0.5 ml IM QWEEK 12/01/17 [History Confirmed 02/10/23] [facility] Medical History (Updated 02/10/23 @ 13:51 by Misael Valladares MD) Impingement of left shoulder Left shoulder pain Surgical History (Updated 12/02/22 @ 08:06 by Aaron Cochran, RN) History of arthroplasty of right shoulder History of back surgery S/P right rotator cuff repair Family History (Updated 12/02/22 @ 08:06 by Aaron Cochran, RN) Father Hypertension Cancer Social History Smoking Status: Never smoker HPI LEFT SHOULDER Details: This documentation accurately reflects the service provided and the decisions made by me, Dr. Misael Valladares MD 02/10/23 9429. Part of today?s visit was documented by [ ], acting as scribe. JENNIFER RODRIGUEZ is a 42 year old M here today for FU L shoulder CT arthro for pain and contra indication for MRI. Ortho Exam General General: Yes no acute distress Neurologic: Yes alert and Yes oriented x3 Psychologic: Yes reasonable and appropriate Supplemental Info [facility] Imaging Services [address] [place] [address] Extremity Upper WITH Contrast MR#: [id number] Acct: [id number] Name: JENNIFER RODRIGUEZ Rep #: [id number] : 1980 M 42 From: Carlos Vieira MD PCP: Dr. Ana Patterson, DO Status: REG CLI Study: Extremity Upper WITH Contrast Date of Exam: 02/04/23 Exam# [id number] Ordering Dr: Misael Valladares MD STUDY: CT ARTHROGRAM OF LEFT SHOULDER REASON FOR EXAM: Male, 42 years old. Evaluate for biceps tendon tear. RADIATION DOSAGE (If Supplied By Facility): CTDIvol = ( 39.80 ) mGy, DLP = ( 1046.78 ) mGycm TECHNIQUE: The patient was scanned in a multi detector CT scanner. High resolution transaxial imaging was performed after administration of a solution containing Omnipaque contrast. Coronal and sagittal reconstruction and bone and soft tissue algorithm images were provided for interpretation. Individualized dose optimization techniques were used for this CT. COMPARISON: Shoulder arthrogram x-ray dated February 04, 2023. FINDINGS: Adequate distention of the joint with contrast. Normal glenohumeral articulation. Normal glenoid rim, neck and visualized scapula. Normal humeral head, neck and tuberosities. Normal biceps tendon without evidence of biceps tendon tear. Normal glenoid labrum. Normal visualized lateral clavicle. Mild AC joint hypertrophy with minimal narrowing of the subacromial space. There is a Type II morphology (curved), with a neutral orientation. Normal visualized muscles and soft tissue structures. CT/Extremity Upper WITH Contrast IMPRESSION: Mild AC joint hypertrophy with minimal narrowing of the subacromial base. Biceps tendon intact. No other abnormality. Electronically Signed: Carlos Vieira MD at 13:22 EST Reading Location ID and State: [address] [place] [address] , Service support , Coding Level of Care Code Off vis,est,level 4 Diagnoses Left shoulder pain, unspecified chronicity M25.512 Chronicity: unspecified Impingement of left shoulder M25.812 Assessment and Plan Assessment and Plan (1) Left shoulder pain: Status: Acute Qualifiers: Chronicity: unspecified Qualified Code(s): M25.512 - Pain in left shoulder Plan: 42-year-old man with continued ongoing left shoulder pain and cramping pain with overhead lifting. The patient has a history of a rotator cuff repair and biceps tenodesis on the other side and this feels similar to the patient. He has failed conservative management including subacromial cortisone injections. The CT arthrogram looks normal although this test is known to be not as sensitive or specific as a MRI which unfortunately patient cannot get due to a implanted spinal cord stimulator. We discussed the pros and cons risks and benefits of continued nonoperative management versus surgery which would be in the form of left shoulder arthroscopy, subacromial decompression, possible rotator cuff repair, possible biceps tenodesis. The patient would like to go ahead with surgery signed the consent form for that. He also has a history of hypokalemic periodic paralysis - so asked him to let his pre op visit nurses know and this combined with hx of methadone may increase risks of surgery. Recovery 2 weeks sling, 6 weeks for rom and 3-6 months before heavy lifting. Patient understands wished to go ahead with surgery no further questions or concerns. Pros and cons risks and benefits were discussed with the patient including but not limited to infection, pain, stiffness, bleeding, damage to surrounding structures, neurovascular injury, recurrence or retear, failure or wear of hardware or fixation, instability, fracture, deep vein thrombosis and pulmonary embolism, anesthetic risks, , patient dissatisfaction, need for further surgery and other risks. Patient understood and wished to proceed with surgery, and signed the informed consent documentation. (2) Impingement of left shoulder: [facility] Medical History Alcohol use Arthritis Back pain Depression Former smoker History of echocardiogram History of stress test Hypokalemia Impingement of left shoulder Left shoulder pain Migraine headache MRSA infection Wears contact lenses Wears glasses Home Medications Synthroid 25 mcg PO DAILY thyroid 12/01/17 [History Last Taken 03/10/23] amiloride 5 mg tablet 10 mg PO DAILY keep K+ up 12/01/17 [History Last Taken 03/10/23] methadone 10 mg tablet 5 mg PO BID back pain 12/01/17 [History Last Taken 03/09/23] sertraline 100 mg tablet (Zoloft) 100 mg PO DAILY anxiety 12/01/17 [History Last Taken 03/09/23] testosterone cypionate 100 mg/mL intramuscular oil (Depo-Testosterone) 0.5 ml IM QWEEK 12/01/17 [History Last Taken 03/09/23] Allergy/AdvReac Type Severity Reaction Status Date / Time Corticosteroids Allergy Mild hypokalemia Verified 03/10/23 08:23 (Glucocorticoids) hydrocodone [From Vicodin] Allergy Unknown Verified 03/10/23 08:23 Family History (Updated 12/02/22 @ 08:06 by Aaron Cochran RN) Father Hypertension Cancer Surgical History History of arthroplasty of right shoulder History of back surgery History of cardiac catheterization History of hand surgery History of tonsillectomy S/P right rotator cuff repair Social History Smoking Status: Former smoker Vital Signs Vital Signs Vital Signs: 03/10/23 08:23 03/10/23 08:23 Temperature 97.6 F L Temperature Source Temporal Pulse Rate 82 Respiratory Rate 18 Respiratory Pattern Normal Blood Pressure 141/82 H Blood Pressure Mean 101 Blood Pressure Source Monitor Blood Pressure Position Semi-Fowlers Blood Pressure Location Right Arm Pulse Ox 96 Oxygen Delivery Method Room Air Weight Weight: 261 lb 14.546 oz Body Mass Index (BMI) 34.5 Results Lab / Micro Data 03/01/23 08:41 03/10/23 08:20 Labs: Laboratory Results - last 24 hr 03/10/23 08:20: Potassium 3.4 L
[2023-03-10] MEDS: Cefazolin 2 GM in 0.9% Normal Saline (100mL Bag) 100 ML IV (10:43)
[2023-03-10] MEDS: Epinephrine (1 mg/ml) 1 MG/ML VIAL (11:07)
--- NOTE | 2023-03-10 12:30 | OP.PCM_ITS ---
Problems Associated Problem List Diagnoses (1) Impingement of left shoulder: (2) Left shoulder pain: (3) Left rotator cuff tear: (4) SLAP lesion of left shoulder: Report of Operation Date of Procedure: 03/10/23 Pre-Operative Diagnosis: L shoulder pain, impingement syndrome Post-Operative Diagnosis: L shoulder impingement, rotator cuff tear, slap tear LHB Surgery/Procedure Performed:: Left shoulder arthroscopy, subacromial decompression, rotator cuff repair, biceps tenodesis Surgeon: Misael Valladares Type of Anesthesia: Block,Regional and General Anesthesiologist: Manoj Valverde Estimated Blood Loss (mL): 50 Description of Procedure: Patient brought the operating room theater. Placed supine on the table. General anesthesia induced. 2 g IV Ancef given prior to start of procedure. Patient transferred left side up lateral decubitus beanbag positioner. Axillary roll used. All bony prominences padded. SCDs on the leg. Upper extremity 10 pounds inline traction with 35 degrees of abduction. Upper extremity prepped and draped in the usual sterile fashion chlorhexidine-based prep solution migraine 3 minutes drying time prior to draping. Preoperative timeout performed to confirm the site patient the surgery. Began by inserting the arthroscope into the intra-articular portion the shoulder. Did an inside out anterior localized with spinal needle localization portal through the rotator interval just posterior to the biceps tendon. Normal cartilage. Biceps had a type 2 slap. I performed an intra-articular biceps tenotomy. Smoothed the stump. Small leading edge over 50 % partial thickness SS tear. Axillary recess normal. Subscapularis Normal. Arthroscopy pictures taken and saved onto the system. I then placed the scope into the subacromial space. I remove the bursa, moderate amount. Did a subacromial decompression 5 mm to flat magin using high speed liu, undersurface the acromion. Identified the tear. Gentle debridement of margin. I placed 2 knotless all suture Arthrex self punching 2.6 mm anchors just medial to the tear. Passed the repair suture from each anchor through the knotless mechanism from the other anchor, to create medial row trans tendon horizontal mattress repair. I then used 1 limb from each suture to a arthrex 4.75 mm Arthrex bio composite swivel lock anchor, to create a triangle configuration. This achieved good compression at the footprint no dogear so I removed the stay suture. Next I turned my attention to the open part of the procedure. Made a longitudinal incision over the long head of biceps tendon at the upper proximal medial aspect of the humerus. Carried dissection down through skin and subcutaneous tissue incised the fascia in line with skin incision. Identified the LHB tendon. I placed 5 locking suture limbs through the tendon using the Arthrex Skip needle with loop suture. I locked this distally. I shorten the biceps tendon. I used a spade tip drill bit to drill a unicortical hole. I flipped the button delivered the tendon to the repair tunnel. I then passed 1 suture limb back through the tendon and 5 interrupted half hitches with the sutures cut short to lock the tendon in place. Wounds were thoroughly irrigated subcutaneous tissue closed with 2-0 Vicryl suture and skin with 3-0 Monocryl. Skin cleaned with wet and dry dressing. 10 cc of quarter percent bupivacaine for local anesthesia. Skin cleaned with wet dry dressing followed application of Steri-Strips Adaptic 4 x 4 gauze ABD d ressing and cloth tape with a sling for the upper extremity. Patient woken up from a general anesthetic transferred off the operating table and taken postanesthetic care unit in stable condition. All sponge needle instrument counts were correct. cpt 73930?and [id number] Complications none Admit VTE Documentation VTE Present on Admission: No VTE Mechan Device Prophylaxis: SCD's VTE Pharm Prophylaxis ordered?: No Reason prophylaxis not ordered:: Treatment Not Indicated Procedures Musculoskeletal 20xxx-29xxx: Other Procedure See Report
[2023-03-10 14:42] LABS: Potassium 4.4 mmol/L (3.5-5.1)
--- NOTE | 2023-03-10 15:17 | PCM.PN.HOSP ---
Subjective Subjective Doing well, seen in PACU. Had essentially left rotator cuff surgery and is being admitted secondary to concerns for his history of periodic hypokalemic paralysis Objective Data Objective Data Vital Signs: Vital Signs Temp Pulse Resp BP Pulse Ox O2 Del Method O2 Flow Rate 98.7 F 112 H 16 126/77 H 96 Nasal Cannula 2 03/10/23 14:15 03/10/23 14:15 03/10/23 14:15 03/10/23 14:15 03/10/23 14:15 03/10/23 14:15 03/10/23 14:15 Oxygen Flow Rate (L/min) 2 Oxygen Delivery Method Nasal Cannula Weight: 261 lb 14.546 oz Body Mass Index (BMI) 34.5 Intake & Output: Intake and Output for Last 24 Hours 03/09/23 03/10/23 03/11/23 03:59 03:59 03:59 Intake Total 212 / 212 Balance 212 / 212 Lab / Micro Data 03/01/23 08:41 03/10/23 14:12 Labs: Laboratory Results - last 24 hr 03/10/23 08:20: Potassium 3.4 L 03/10/23 14:12: Potassium 4.4 Physical Exam Narrative General: Alert, Oriented x3, Cooperative, No apparent distress HEENT: Atraumatic, PERRLA, EOMI, Normocephalic Oral: Moist Mucosa Neck: Supple, No JVD Lungs: Diminished, Normal air movement, No rhonchi, No wheeze, No rales Cardiovascular: Regular rate, Regular Rhythm, Normal S1, Normal S2, No murmurs Abdomen: Soft, Non Tender, Non-Distended, No Hepato-splenomegaly Extremities: No edema, Capillary Refill Less than 3 Seconds Skin: No rashes, No breakdown Musculoskeletal: Left arm in sling Neurological: No focal neurological deficits, Motor Exam 5/5 strength throughout, Sensory exam intact to light touch and pain Psych/Mental Status: Normal Affect, Appropriate Assessment & Plan Assessment/Plan (1) Left rotator cuff tear: PLAN: Plan 1. Left rate Tatar cuff tear status postrepair on 03/10/2023/chronic pain ? Pain management per primary ? Discharge planning per primary 2. Periodic paralysis ? He is on amiloride to help prevent this but will recheck a BMP on admission and then 1 tomorrow morning ? Necessary can aggressively replace potassium, he states that he takes it periodically whenever he is feeling weak ? She was admitted in 2018 for severe hypokalemia leading to paralysis 3. Hypothyroidism ? Stable ? Continue with Synthroid 4. Anxiety/depression ? Stable ? Continue Zoloft DVT: Ambulation Charges/Coding Visit Charges Office Visits / Consults: 16931 OV L4 Est 30min
[2023-03-10] MEDS: Oxycodone/Apap 5/325 Tablet PO ×2 (15:26→20:00)
[2023-03-10 16:31] LABS: Anion Gap 2 (5-15); BUN 11 mg/dL (7-18); BUN/Creat Ratio 10.4 RATIO (10-20); Calcium,Total 8.6 mg/dL (8.5-10.1); Chloride 110 mmol/L (98-107); Creatinine, Serum 1.06 mg/dL (0.70-1.30); EST Glomerular Filtration Rate 81 mL/min (>60); Est Glom Filt Rate - Afr Amer 98 mL/min (>60); Estimated Creatinine Clearance 122.58 ml/min; Glucose 113 mg/dL (74-106); Potassium 4.1 mmol/L (3.5-5.1); Sodium Level 139 mmol/L (136-145)
--- OUTSIDE RECORDS SUMMARY | 2023-03-10 18:38 | XMS RPT_ITS | CCD ---
Author Name Unknown Address [address] [place] [address] Organization [facility] Care Team Providers Care Tree Trimmer Helper Name Role Phone Booker SMITH, Aron Ojeda Unavailable Sherri Patterson DO Primary Care Provider Sherri Patterson DO Primary Care Provider REFUGIO WANG, DR POLANCO Primary Care Physician [phone] Sherri Patterson DO Primary Care Provider REFUGIO WANG, DR POLANCO Attending Unavailable REFUGIO WANG, DR POLANCO Primary Care Unavailable REFUGIO WAGN, DR POLANCO Attending Unavailable REFUGIO WANG, DR [...] Acetaminophen / HYDROcodone Drug Allergy 9 hives [facility] Work Phone: (1 source) Corticosteroids drug allergy 9 decreases potassium [facility] Work Phone: (8 sources) Acetaminophen / HYDROcodone; Translations: [acetaminophen-hydr ocodone] Drug Allergy 2 Hives [facility] (7 sources) Glucocorticoid preparation; Translations: [CORTICOSTEROIDS (GLUCOCORTICOIDS)] Drug Allergy 9 Other: See Comments [facility] (1 source) Corticosteroids and derivatives; Translations: [corticosteroids] Drug allergy Finding of potassium level (finding) Erinn [facility] [place] Medications Current Medications Medication Drug Class(es) Dates Sig (Normalized) Sig (Original) aMILoride hydrochloride 5 mg oral tablet (8 sources) Potassium-sparin g Diuretic Start: 02-05-2022 take 2 tablets by mouth once daily aMILoride 5 mg oral tablet See Instructions, TAKE 2 TABLETS BY MOUTH EVERY DAY, # 180 tab(s), 1 Refill(s), Pharmacy: [id number], 187, cm, 02/05/22 9:10:00 EST, Height, kg, 02/05/22 9:10:00 EST, Dosing Weight Start Date: 02/05/22 Status: Ordered Completed/Discontinued Medications Medication Drug Class(es) Dates Sig (Normalized) Sig (Original) TESTOSTERONE 200 MG/ML INTRAMUSCULAR SOLUTION (TESTOSTERONE ) (1 source) Start: 03-07-2018 inject 0.5 mL by intramuscular injection every week TESTOSTERONE 200 MG/ML INTRAMUSCULAR SOLUTION (TESTOSTERONE ) 0.5 ml injection once per week Adriana Novoa TRAFFIC MONITOR SPECIALIST acetaminophen 325 mg oral tablet (2 sources) [...] Sign Value Performing Clinician Facility NEGATED: Highlighted [id number] 12:59-0500 BMI (Body Mass Index) 34.03 kg/m2 Misael Urbina AT [facility] Work Phone: NEGATED: Highlighted [id number] 12:59-0500 BP Diastolic 77 mm[Hg] Misael Urbina AT [facility] Work Phone: NEGATED: Highlighted [id number] 12:59-0500 BP Systolic 109 mm[Hg] Misael Urbina AT [facility] Work Phone: NEGATED: Highlighted [id number] 12:59-0500 Height 185.42 cm Misael Urbina AT [facility] Work Phone: NEGATED: Highlighted [id number] 12:59-0500 Height 185 cm Misael Urbina AT [facility] Work Phone: NEGATED: Highlighted [id number] 12:59-0500 Pulse (Heart Rate) 78 /min Misael Urbina AT [facility] Work Phone: NEGATED: Highlighted [id number] 12:59-0500 Weight 116.58 kg Misael Urbina AT [facility] Work Phone: NEGATED: Highlighted [id number] 12:59-0500 Weight 117 kg Misael Urbina AT [facility] Work Phone: Encounters Encounter Date Encounter Type Care Provider Facility Start: 02-16-2023 End: 02-16-2023 ambulatory SHERRI PATTERSON Facility:[facility] Start: 11-16-2022 End: 11-17-[address] SHERRI PATTERSON DO Facility:[facility] Start: 11-03-2022 End: 11-03-2022 ambulatory Shakila Vidales LANGUAGE INSTRUCTOR.EQUIPMENT MAINTENANCE TECH Work Phone: Pain Management Procedures Date Procedure Procedure Detail Performing Clinician Start: 06-03-2020 Miscellaneous (quali fier value) DR SHERRI PATTERSON DO Plan of Treatment Date Care Activity Detail Author Start: 10-08-2022 Influenza vaccination [facility] Start: 11-12-2021 End: 01-12-2022 PAIN PANEL, UR QUANT [facility] Work Phone: Immunizations Immunization Date Immunization Notes Care Provider Kelton mendiola 07-09-2021 SARS-CoV-2 (COVID-19 ) Ad26 vaccine, recombinant DR SHERRI PATTERSON DO [facility] 02-21-2017 influenza virus vaccine, unspecified formulation Shakila Vidales EQUIPMENT MAINTENANCE TECH Work Phone: [facility] 12-12-2012 zoster vaccine, live DR ELLEN PATTERSON DO [facility] 08-25-2012 tetanus toxoid, reduced diphtheria toxoid, and acellular pertussis vaccine, adsorbed DR SHERIR PATTERSON DO [facility] No information available. Misael Urbina AT [facility] Work Phone: Payers Date Payer Category Payer Unknown [id number] 2022 Private Health Insurance [id number] 2021 Private Health Insurance [id number] 2019 Medicaid [id number] 2006 Unknown [id number] 2006 Unknown [id number] 1980 Unknown [id number] 1980 Unknown [id number] Social History Date Type Detail Facility Start: 03-07-2018 End: 03-07-2018 Assertion Unknown if ever smoked [facility] Work Phone: Start: 02-16-2019 End: 05-26-2020 Tobacco smoking status NHIS Ex-smoker [facility] History of tobacco use Current smoker [facility] Start: 05-26-2020 Tobacco use and exposure User of smokeless tobacco [facility] History of tobacco use Chews Tobacco [facility] Start: 07-08-2021 Alcohol intake Current drinke r of alcohol (finding) [facility] Start: 07-08-2021 End: 08-05-2022 Alcohol intake [facility] Start: 07-08-2021 History SDOH Alcohol Comment social [facility] Start: 1980 Sex Assigned At Male C [facility] Start: 11-02-2021 End: 11-12-2021 Exposure to SARS-CoV-2 (event) Not sure [facility] Start: 07-08-2021 End: 08-05-2022 Tobacco use panel [facility] Adult Depression Screening Assessment 0 [facility] Start: 12-10-2019 Gender identity Identifies as male gender (finding) [facility] Start: 12-10-2019 Sexual orientation Heterosexual (fin ding) [facility] NEGATED: Highlighted rowStart: 03-07-2018 End: 03-07-2018 Tobacco use and exposure Former smoker [facility] Work Phone: Medical Equipment Procedure Code Equipment Code Equipment Origin al Text Equipment Identifier Dates [facility] [id number] Start: 06-03-2020 Lhs-Gv-E-Kind Implant - [id number] Start: 04-04-2012 Clinical Notes 10-21-2021 to 02-16-2023 Shakila Vidales APRN.CNP - 11/03/2022 1:09 PM EDTTelephone Encounter - Sujata Lee RN - 08/05/2022 3:13 PM Lisa Vidales APRN.CNP - 08/05/2022 1:10 PM EDT Note Date & Type Note Facility 02-16-2023 Note HNO ID: [id number] Author: SHAKILA VIDALES APRN.CNP Service: ? Author Type: Nurse Practitioner Type: Progress Notes Filed: 02/25/2023 13:00 Note Text: Chronic Pain Clinic Follow-Up Evaluation Date: February 16, 2023 - 2:13 PM Chief Complaint: Chronic Pain Last Annual Visit: 06/11/2020 SUBJECTIVE: Man Bravo is a 42 year old who presents to [facility] for a follow up [...] is the av (more content not included)... [facility] 11-03-2022 Note HNO ID: [id number] Author: Shakila Vidales APRN.DONNA Service: ? Author [...] 42 year old who presents to [facility] for a follow up [...] on telephone discussi (more content not included)... [facility] 11-03-2022 History of Presen t illness Narrative Chronic Pain Clinic Telephone Encounter Evaluation Man Bravo consented to the encounter being held via telephone Shakila Vidales APRN.DONNA and Man Morris Bravo present during telemedicine encounter via Zoom. Date: November 03, 2022 Chief Complaint: Chronic Pain SUBJECTIVE: Man Bravo is a 42 year old who presents to [facility] for a follow up [...] making from today. documented in this encounter [facility] 08-05-2022 Miscellaneous Notes Formattin g of this note might be different from the original. Prior Auth for methadone approved by [facility]. Sujata Lee RN documented in this encounter [facility] 08-05-2022 Note HNO ID: [id number] Author: Shakila Vidales APRN.DONNA Service: ? Author Type: Nurse Practitioner Type: Progress Notes Filed: 08/05/2022 1:55 PM Note Text: Chronic Pain Clinic Telephone Encounter Evaluation Man Bravo consented to the encounter being held via telephone Shakila Vidales APRN.EQUIPMENT MAINTENANCE TECH and Man Bravo present during telemedicine encounter via Zoom. Date: August 05, 2022 Chief Complaint: Chronic Pain SUBJECTIVE: Man Bravo is a 40 year old who presents to [facility] for a follow up [...] my current medical (more content not included)... [facility] 08-05-2022 History of Presen t illness Narrative Chronic Pain Clinic Telephone Encounter Evaluation Man Bravo consented to the encounter being held via telephone Shakila Vidales APRN.DONNA and Man Morris Bravo present during telemedicine encounter via Zoom. Date: August 05, 2022 Chief Complaint: Chronic Pain SUBJECTIVE: Man Bravo is a 40 year old who presents to [facility] for a follow up [...] on telephone discussion: 15 minutes Shakila Vidales APRN.CNP August 05, 2022 Some element were copied from my note on 04/08/2021 and 05/05/2022, which have been updated where appropriate, and reflect my current medical decision making from today documented in this encounter [facility] 05-05-2022 Note HNO ID: [id number] Author: Shakila Vidales APRN.CNP Service: ? Author Type: Nurse Practitioner Type: Progress Notes Filed: 05/07/2022 8:36 AM Note Text: Chronic Pain Clinic Follow-Up Evaluation Date: May 05, 2022 Chief Complaint: Chronic pain Last Annual Visit: 07/08/2021 SUBJECTIVE: Man Bravo is a 41 year old who presents to [facility] for a follow up [...] [employer] today for some reprogramming. Looks like [facility] can now do Virtual appointment so he [...] and left Extremitie (more content not included)... [facility] 05-05-2022 History of Presen t illness Narrative Chronic Pain Clinic Follow-Up Evaluation Date: May 05, 2022 Chief Complaint: Chronic pain Last Annual Visit: 07/08/2021 SUBJECTIVE: Man Bravo is a 41 year old who presents to [facility] for a follow up [...] [employer] today for some reprogramming. Looks like [facility] can now do Virtual appointment so he [...] making from today documented in this encounter [facility] 11-12-2021 History of Presen t illness Narrative Chronic Pain Clinic Follow-Up Evaluation Date: November 12, 2021 - 3:58 PM Chief Complaint: Chronic Pain Last Annual Visit: 07/08/2021 SUBJECTIVE: Man Bravo is a 41 year old who presents to [facility] for a follow up [...] 3 for medication refill and follow-up (in-person [facility] patient). (M54.42, M54.41, G89.29) Chronic bilateral low [...] which included preparing to see the patient, [id number] patient care, completing clinical documentation, obtaining and/or reviewing separately obtained history, performing a medically appropriate examination, counseling and educating the patient/family/caregiver, ordering medications, tests, or procedures, communicating with other HCPs (not separately reported), and care coordination (not separately reported). Shakila Vidales APRN.CNP November 12, 2021 documented in this encounter [facility] 10-21-2021 Miscellaneous Notes Formattin g of this note is different from the original. Discussing with patient via [employer] message. The following approved medication requests have been transmitted electronically. Requested Prescriptions Refused Prescriptions Disp Refills methadone (DOLOPHINE) 5 mg tablet 60 tablet 0 Sig: Take 1 tablet by mouth twice daily for 30 days. Refused By: SHAKILA VIDALES Reason for Refusal: Request already responded to by other means (for example, phone, fax) Shakila Vidales APRN.CNP documented in this encounter [facility] Evaluation + Plan note Future Appointments Appointment Date:05/07/2022 07:45:00 AM Scheduled Provider:SHERRI PATTERSON DO [facility] Appointment Type:PC OV [facility] Diagnosis Chronic bilateral low back pain with bilateral sciatica Lumbar post-laminectomy syndrome Postlaminectomy syndrome, lumbar region Chronic, continuous use of opioids Opioid type dependence, continuous POSTLAMINECT SYND-LUMBAR Postlaminectomy syndrome, lumbar region [facility] Diagnosis Chronic bilateral low back pain with bilateral sciatica Lumbar post-laminectomy syndrome Postlaminectomy syndrome, lumbar region Chronic, continuous use of opioids Opioid type dependence, continuous POSTLAMINECT SYND-LUMBAR Postlaminectomy syndrome, lumbar region [facility] Diagnosis Chronic bilateral low back pain with bilateral sciatica Lumbar post-laminectomy syndrome Postlaminectomy syndrome, lumbar region Chronic, continuous use of opioids Opioid type dependence, continuous POSTLAMINECT SYND-LUMBAR Postlaminectomy syndrome, lumbar region [facility] Diagnosis Chronic bilateral low back pain with bilateral sciatica Lumbar post-laminectomy syndrome Postlaminectomy syndrome, lumbar region Chronic, continuous use of opioids Opioid type dependence, continuous POSTLAMINECT SYND-LUMBAR Postlaminectomy syndrome, lumbar region [facility] Narrative No data available for this section [facility] Hospital Discharge instructions No data available for this section [facility] Progress note No data available for this section [facility] Chief Complaint Chief Complaint Description Start [...] Diagnoses Postlaminectomy syndrome, lumbar region Shakila Vidales APRN.[place] [id number] Referral ID Status Reason Start Date Expiration Date Visits Re quested Visits Authorized [id number] Closed 1 1 Specialty Diagnoses / Procedures Referred By Contac t Referred To Contact Diagnoses Chronic bilateral low back pain with bilateral sciatica Lumbar post-laminectomy syndrome Chronic, continuous use of opioids Shakila Vidales APRN.[facility] [address] [place], [place] [id number] Referral ID Status Reason Start Date Expiration Date V isits Requested Visits Authorized [id number] Authorized 07/17/2023 1 1 Referral ID Status Reason Start Date Expiration Date Visits Re quested Visits Authorized [id number] Closed 1 1 Summary Purpose Additional Source Comments Reason for Visit (unrecogniz ed section and content) Reason Onset Date Comments Refill Request 10/20/2021 Specialty Diagnoses / Procedures Referred By Contac t Referred To Contact Pain Management / PAIN MANAGEMENT Diagnoses Med refill Procedures REFERRAL TO [facility] FINANCIAL COUNSELOR EST PAIN Shakila Vidales APRN.[facility] [address] [place] [address] Shakila Vidales APRN.[facility] [address] [place] [address] Referral ID Status Reason Start Date Expiration Date V isits Requested Visits Authorized [id number] Pending Review 11/12/2021 02/10/2022 1 1 Specialty Diagnoses / Procedures Referred By Contac t Referred To Contact Pain Management / PAIN MANAGEMENT Diagnoses pump reprogramming Procedures REFERRAL TO [facility] FINANCIAL COUNSELOR Ilan Crowder MD [address] [place] [address] Shakila Vidales, LANGUAGE INSTRUCTOR.EQUIPMENT MAINTENANCE TECH [address] [place] [address] Referral ID Status Reason Start Date Expiration Date V isits Requested Visits Authorized [id number] Pending Review 04/22/2022 07/21/2022 1 1 Reason Comments Chronic Pain Specialty Diagnoses / Procedures Referred By Contac t Referred To Contact Pain Management / PAIN MANAGEMENT Diagnoses Medication refill Procedures REFERRAL TO [facility] FINANCIAL COUNSELOR VIDEO SPEC Ilan Shea MD [address] [place] [address] Shakila Vidales, [place] [address] Referral ID Status Reason Start Date Expiration Date V isits Requested Visits Authorized [id number] Pending Review 08/05/2022 11/03/2022 1 1 Reason Comments Insurance Authorization Reason Comments Chronic Pain Specialty Diagnoses / Procedures Referred By Contac t Referred To Contact Pain Management / PAIN MANAGEMENT Diagnoses Medication refill Procedures REFERRAL TO [facility] FINANCIAL COUNSELOR VIDEO SPEC Ilan Shea MD [address] [place] [address] Shakila Vidales, [place] [address] Referral ID Status Reason Start Date Expiration Date Visits Re quested Visits Authorized [id number] Closed 08/05/2022 11/03/2022 1 1 Source Comments (unrecognize d section and content) In the event this informatio n is protected by the Federal Confidentiality of Alcohol and Drug Abuse Patient Records regulations: The Federal rules restrict any use of the information to criminally investigate or prosecute any alcohol or drug abuse patient.[facility] the event this information is protected by the Federal Confidentiality of Alcohol and Drug Abuse Patient Records regulations: The Federal rules restrict any use of the information to criminally investigate or prosecute any alcohol or drug abuse patient.[facility] the event this information is protected by the Federal Confidentiality of Alcohol and Drug Abuse Patient Records regulations: The Federal rules restrict any use of the information to criminally investigate or prosecute any alcohol or drug abuse patient.[facility] the event this information is protected by the Federal Confidentiality of Alcohol and Drug Abuse Patient Records regulations: The Federal rules restrict any use of the information to criminally investigate or prosecute any alcohol or drug abuse patient.[facility] the event this information is protected by the Federal Confidentiality of Alcohol and Drug Abuse Patient Records regulations: The Federal rules restrict any use of the information to criminally investigate or prosecute any alcohol or drug abuse patient.[facility] the event this information is protected by the Federal Confidentiality of Alcohol and Drug Abuse Patient Records regulations: The Federal rules restrict any use of the information to criminally investigate or prosecute any alcohol or drug abuse patient.[facility] Care Teams (unrecognized sec tion and content) Tree Trimmer Helper Relationship Specialty Start Date End Date Sherri Patterson DO PCP - General Family Medicine 12/16/16 Tree Trimmer Helper Relationship Specialty Start Date End Date Sherri Patterson DO PCP - General Family Medicine 12/16/16 Tree Trimmer Helper Relationship Specialty Start Date End Date Sherri Patterson DO PCP - General Family Medicine 12/16/16 Tree Trimmer Helper Relationship Specialty Start Date End Date Sherri Patterson DO PCP - General Family Medicine 12/16/16 Tree Trimmer Helper Relationship Specialty Start Date End Date Sherri Patterson DO PCP - General Family Medicine 12/16/16 Care Team (unrecognized sect ion and content) Care Team Personnel Name: SHERRI PATTERSON DO Position: P4 Physician - Primary Care Member Role: Primary Care Physician Address: Address: [address] [place] [id number] Care Team Related Persons Name: AMARA BRAVO Address: Home [address], [place] [id number] Name: SHERRI BRAVO Address: Home [address], [place] [id number] (unrecognized sect ion and content) No Status Records FoundNo Status Records Found INFORMATION SOURCE (unrecogn ized section and content) DATE CREATED AUTHOR AUTHOR'S ORGANIZ ATION 02/26/2023 [facility] FOR RECORDS PERTAINING TO PATIENTS WHO ARE [...] BE BASED ON THE PRIMARY CLINICAL RECORDS. [employer] provides no warranty or guarantee of the accuracy or completeness of information in this document.
[2023-03-11] MEDS: Oxycodone/Apap 5/325 Tablet PO ×4 (00:03→15:02)
[2023-03-11 05:00] VITALS: BP 106/62; PULSE 120; RESP 15; TEMP 37.8; O2SAT 92
[2023-03-11] MEDS: Levothyroxine 25 MCG TABLET PO (05:30)
[2023-03-11 06:43] LABS: Anion Gap 3 (5-15); BUN 9 mg/dL (7-18); Calcium,Total 8.4 mg/dL (8.5-10.1); Chloride 106 mmol/L (98-107); Creatinine, Serum 1.12 mg/dL (0.70-1.30); EST Glomerular Filtration Rate 76 mL/min (>60); Est Glom Filt Rate - Afr Amer 92 mL/min (>60); Estimated Creatinine Clearance 116.01 ml/min; Glucose 106 mg/dL (74-106); Potassium 3.6 mmol/L (3.5-5.1); Sodium Level 138 mmol/L (136-145)
[2023-03-11] MEDS: Sertraline 100 MG Tablet PO (08:27)
[2023-03-11] MEDS: Potassium Chloride Oral Tablet 20 MEQ 40 MEQ PO (08:27)
[2023-03-11 08:41] VITALS: BP 107/60; PULSE 116; RESP 18; TEMP 37.7; O2SAT 94
--- NOTE | 2023-03-11 10:23 | CASEMGMT ---
LEOPOLDO NAGEL Assessment: Face to Face with pt for initial transition planning/care coordination assessment. RN ROBE introduced self and role at [facility], pt voices understanding and consents to assessment. Pt is A&O x4 and answers all questions appropriately at this time. Pt sitting up in bed in no distress with at bedside. Care providers, pharmacy, and demographics verified/updated. Admitting Dx: L shoulder arthroscopy, subacromial decompression PCP:Leonardo Specialists:thiago Valladares; otoniel Aceves Preferred Pharmacy: [facility] Insurance: [employer] Prescription Benefit: yes LNOK: Ana Barvo, Living Arrangements: Pt lives with and 3 dtrs in a two story home with a couple of steps to enter. Pt reports he is I in ADL's and denies concerns at home. Transportation: Pt drives self and denies concerns with transportation. Pt is able to transport pt as well. DME:Denies HHC/SNF: Denies hx of Pt states no concerns with going home at time of dc. Pt states no further concerns/needs. CM to follow. Advised pt to ask CM if any further question/concerns/needs arise, voices understanding. Pt Goal: Home Plan: Home
--- NOTE | 2023-03-11 10:28 | PCM.PN.HOSP ---
Subjective Subjective Doing well, no issues overnight. He is febrile from atelectasis encourage ambulation. He is also complaining of somewhat more significant pain today and his shoulder hurts whenever he moves. Objective Data Objective Data Vital Signs: Vital Signs Temp Pulse Resp BP Pulse Ox O2 Del Method O2 Flow Rate 99.8 F H 116 H 18 107/60 94 Room Air 2 03/11/23 08:41 03/11/23 08:41 03/11/23 08:41 03/11/23 08:41 03/11/23 08:41 03/11/23 08:41 03/10/23 15:00 Oxygen Flow Rate (L/min) 2 Oxygen Delivery Method Room Air Weight: 261 lb 14.546 oz Body Mass Index (BMI) 34.5 Intake & Output: Intake and Output for Last 24 Hours 03/10/23 03/11/23 03/12/23 03:59 03:59 03:59 Intake Total 2162 / 2162 500 / 500 Balance 2162 / 2162 500 / 500 Lab / Micro Data 03/01/23 08:41 03/11/23 05:05 Labs: Laboratory Results - last 24 hr 03/10/23 14:12: Potassium 4.4 03/10/23 15:58: Sodium 139, Potassium 4.1, Chloride 110 H, Carbon Dioxide 27.0, Anion Gap 2 L, BUN 11, Creatinine 1.06, Estim Creat Clear Calc 122.58, Est GFR (MDRD) Af Amer 98, Est GFR (MDRD) Non-Af 81, BUN/Creatinine Ratio 10.4, Glucose 113 H, Calcium 8.6 03/11/23 05:05: Sodium 138, Potassium 3.6, Chloride 106, Carbon Dioxide 29.0, Anion Gap 3 L, BUN 9, Creatinine 1.12, Estim Creat Clear Calc 116.01, Est GFR (MDRD) Af Amer 92, Est GFR (MDRD) Non-Af 76, BUN/Creatinine Ratio 8.0 L, Glucose 106, Calcium 8.4 L Physical Exam Narrative General: Alert, Oriented x3, Cooperative, No apparent distress HEENT: Atraumatic, PERRLA, EOMI, Normocephalic Oral: Moist Mucosa Neck: Supple, No JVD Lungs: Diminished, Normal air movement, No rhonchi, No wheeze, No rales Cardiovascular: Regular rate, Regular Rhythm, Normal S1, Normal S2, No murmurs Abdomen: Soft, Non Tender, Non-Distended, No Hepato-splenomegaly Extremities: No edema, Capillary Refill Less than 3 Seconds Skin: No rashes, No breakdown Musculoskeletal: Left arm in sling Neurological: No focal neurological deficits, Motor Exam 5/5 strength throughout, Sensory exam intact to light touch and pain Psych/Mental Status: Normal Affect, Appropriate Assessment & Plan Assessment/Plan (1) Left rotator cuff tear: PLAN: Plan 1. Left rate Tatar cuff tear status postrepair on 03/10/2023/chronic pain ? Pain management per primary ? Discharge planning per primary ? Stable for discharge from medical perspective 2. Periodic paralysis ? Give 40 mg equivalents of potassium this morning and will plan to provide 4 days of p.o. potassium at home, he is already on potassium sparing diuretic ? Will need to follow-up with his PCP next week for a repeat BMP to monitor his potassium ? Necessary can aggressively replace potassium, he states that he takes it periodically whenever he is feeling weak ? She was admitted in 2018 for severe hypokalemia leading to paralysis 3. Hypothyroidism ? Stable ? Continue with Synthroid 4. Anxiety/depression ? Stable ? Continue Zoloft DVT: Ambulation Will sign off Charges/Coding Visit Charges Office Visits / Consults: 59670 OV L3 Est 20min
--- NOTE | 2023-03-11 14:02 | PCM.DC.SUM ---
Providers Date of Admission: 03/10/23 Primary Care Physician: Dr. Ana Patterson, DO hospitalist Reason For Visit: Left shoulder arthroscopy, subacromial decompressi Diagnosis Discharge Diagnosis (1) Left rotator cuff tear: Status: Acute Code(s): M75.102 - Unspecified rotator cuff tear or rupture of left shoulder, not specified as traumatic Medications at Discharge Home Medications Synthroid 25 mcg PO DAILY thyroid 12/01/17 amiloride 5 mg tablet 10 mg PO DAILY keep K+ up 12/01/17 methadone 10 mg tablet 5 mg PO BID back pain 12/01/17 sertraline 100 mg tablet (Zoloft) 100 mg PO DAILY anxiety 12/01/17 testosterone cypionate 100 mg/mL intramuscular oil (Depo-Testosterone) 0.5 ml IM QWEEK 12/01/17 oxycodone-acetaminophen 5 mg-325 mg tablet (Endocet) 1 tab PO Q4H PRN pain 5 days #20 tabs 03/11/23 potassium chloride 20 mEq tablet,extended release 20 meq PO DAILY #4 tabs 03/11/23 Hospital Course Operations arthroscopy, shoulder Summary of Care Provided Minutes Spent on Discharge: 15 Hospital Course: benign, potassium monitoring and supplementation per hospitalist Physical Exam Narrative patient pain under control per nursing and desiring to be discharged home Weight / BMI Weight Weight: 261 lb 14.546 oz Body Mass Index (BMI) 34.5 ABG / Lab / Microbiology Data 03/01/23 08:41 03/11/23 05:05 Laboratory: Laboratory Results - last 24 hr 03/10/23 14:12: Potassium 4.4 03/10/23 15:58: Sodium 139, Potassium 4.1, Chloride 110 H, Carbon Dioxide 27.0, Anion Gap 2 L, BUN 11, Creatinine 1.06, Estim Creat Clear Calc 122.58, Est GFR (MDRD) Af Amer 98, Est GFR (MDRD) Non-Af 81, BUN/Creatinine Ratio 10.4, Glucose 113 H, Calcium 8.6 03/11/23 05:05: Sodium 138, Potassium 3.6, Chloride 106, Carbon Dioxide 29.0, Anion Gap 3 L, BUN 9, Creatinine 1.12, Estim Creat Clear Calc 116.01, Est GFR (MDRD) Af Amer 92, Est GFR (MDRD) Non-Af 76, BUN/Creatinine Ratio 8.0 L, Glucose 106, Calcium 8.4 L D/C Instructions Lifting Restrictions: no lifting, pendulum exercsises 4x/day Call your doctor if your incision/area has: Continuous Slow Oozing, Sudden Increased Bleeding, Increased Pain/ Swelling, Increased Redness, Foul Smelling Discharge and Swelling at the incision site Call your doctor if you observe: Fever of 101 or Higher and Change in Color Change Dressing in: leave in place till F/U Additional Instructions: FU in office next week Please Follow Up With: Misael Valladares MD When: next week Meaningful Use Info Meaningful Use Diagnoses (Choose all that apply): None applicable Discharge Plan Admission Admit Date/Time: 03/10/23 12:36 Primary Reason for Your Visit: left shoulder surgery, admission post op for potassium Attending Provider: Misael Valladares Primary Care Provider: Ana Patterson Consulting Providers: Onesimo Felix Instructions Patient Instructions: After Shoulder Arthroscopy Discharge Orders/Prescriptions Prescriptions: New potassium chloride 20 mEq tablet extended release 20 meq PO DAILY Qty: 4 0RF oxycodone-acetaminophen [Endocet] 5-325 mg tablet 1 tab PO Q4H MDD 6 PRN (Reason: pain) 5 Days Qty: 20 0RF Continued methadone 10 MG tablet 5 mg PO BID testosterone cypionate [Depo-Testosterone] 100 MG/ML oil 0.5 ml IM QWEEK Patient Comments: on tuesday nights sertraline [Zoloft] 100 MG tablet 100 mg PO DAILY amiloride 5 MG tablet 10 mg PO DAILY Synthroid 25 mcg PO DAILY Referrals / Follow Up: Ana Patterson DO [Primary Care Provider] - Within 1 Week Misael Valladares MD [Med Staff - Active Staff] - Disposition Disposition (needs filled in before D/C Order can be placed): Home, Self Care
[2023-03-11 14:18] VITALS: BP 100/55; PULSE 115; RESP 18; TEMP 37.9; O2SAT 95
--- NOTE | 2023-03-11 15:06 | PHA.DC_ITS ---
Pharmacy [facility] has performed discharge medication reconciliation and counseling for this patient. The patient's discharge medication list was reviewed for discrepancies and discrepancies were resolved. The patient was counseled on the following discharge medications and changes in medications for homegoing were reviewed. 1. PERCOCET 2. POTASSIUM TABLETS The Reason for Use, instructions for use, and potential side effects were reviewed for all new medications. The patient's questions regarding all of their medications were answered. The patient was able to verbally demonstrate an understanding of their discharge medications. Patient was counselled by Daniel Hahn PharmD Candidate
== END 2023-03-11 15:24 | disposition home or self-care (01) ==
LOC: SDC 14:33 → MS3 14:33
PROVIDERS: Anesthesiology; Family Medicine; Admitting Provider Orthopaedic Surgery Sports Medicine; Referring Provider Orthopaedic Surgery Sports Medicine; Visit Provider Orthopaedic Surgery Sports Medicine
PROC: (CPT 29805; principal; 2023-03-10 09:20)
DX: M75.102 Unspecified rotator cuff tear or rupture of left shoulder, not specified as traumatic (principal); M25.812 Other specified joint disorders, left shoulder; S43.432A Superior glenoid labrum lesion of left shoulder, initial encounter; X58.XXXA Exposure to other specified factors, initial encounter; Z86.14 Personal history of Methicillin resistant Staphylococcus aureus infection; F32.A Depression, unspecified; Z79.899 Other long term (current) drug therapy; Z87.891 Personal history of nicotine dependence; E03.9 Hypothyroidism, unspecified; Z79.890 Hormone replacement therapy; F41.9 Anxiety disorder, unspecified; G72.3 Periodic paralysis
CPT/HCPCS: 29827; 29826; 23430; 36415; 80048; 84132; 84443; 85027; 93005; 99221; 99406; J7120; G0378; J2405; J3475